=== PATIENT | male | born 1955 | race Caucasian/White ===

== ENCOUNTER 2016-08-17 08:00 | Outpatient (CLI) | payer MEDICARE | END 2016-08-17 08:01 | disposition home or self-care (01) | DX: I48.91 Unspecified atrial fibrillation (principal); Z79.01 Long term (current) use of anticoagulants ==

== ENCOUNTER 2016-09-14 10:57 | Outpatient (CLI) | payer MEDICARE | END 2016-09-14 10:58 | disposition home or self-care (01) | DX: I48.91 Unspecified atrial fibrillation (principal); Z79.01 Long term (current) use of anticoagulants ==

== ENCOUNTER 2016-10-26 09:21 | Outpatient (CLI) | payer MEDICARE | END 2016-10-26 09:22 | disposition home or self-care (01) | DX: I48.91 Unspecified atrial fibrillation (principal); Z79.01 Long term (current) use of anticoagulants ==

== ENCOUNTER 2016-11-15 13:01 | Outpatient (CLI) | payer MEDICARE ==
[2016-11-15] MEDS ORDERED: ALBUTEROL NEB 2.5 MG/3 ML INH ONE (13:13)
== END 2016-11-15 13:02 | disposition home or self-care (01) ==
DX: J44.9 Chronic obstructive pulmonary disease, unspecified (principal)
CPT/HCPCS: 94060; J7613

== ENCOUNTER 2016-11-30 09:53 | Outpatient (CLI) | payer MEDICARE | END 2016-11-30 23:59 | DX: I48.91 Unspecified atrial fibrillation (principal); Z79.01 Long term (current) use of anticoagulants ==

== ENCOUNTER 2017-01-01 08:05 | Outpatient (CLI) | payer MEDICARE ==
--- NOTE | 2017-01-01 16:54 | XRAY Report ---
CHEST PA AND LATERAL: 01/01/2017 CLINICAL HISTORY: Edema, shortness of breath. FINDINGS: Moderate degree of cardiomegaly is seen. Mediastinum is not widened. Pulmonary parenchym a demonstrates thickened fissures noted bilaterally. Associated moderate degree of interstitial pare nchymal disease is seen extending from each perihilar region. Findings are compatible with congestiv e heart failure. Bones demonstrate no significant abnormality. IMPRESSION: MODERATE DEGREE OF CARDIOMEGALY WITH CONGESTIVE HEART FAILURE. COMMENT: Dr. Bonilla informed patient's physician, Dr. Mane, of the above findings on 01/01/2017 a t 4:30 p.m. JOB #: [id number] EXT JOB #:[id number]
== END 2017-01-01 08:06 | disposition home or self-care (01) ==
LOC: DI 08:05
PROVIDERS: ATTEND Internal Medicine
DX: I50.9 Heart failure, unspecified (principal); I51.7 Cardiomegaly
CPT/HCPCS: 71020; 93306

== ENCOUNTER 2017-01-25 11:35 | Outpatient (CLI) | payer MEDICARE | END 2017-01-25 11:36 | disposition home or self-care (01) | LOC: LAB.N 11:35 | PROVIDERS: ATTEND Internal Medicine | DX: I48.91 Unspecified atrial fibrillation (principal) | CPT/HCPCS: 85610 ==

== ENCOUNTER 2017-03-08 10:06 | Outpatient (CLI) | payer MEDICARE | END 2017-03-08 10:07 | LOC: LAB.N 10:06 | PROVIDERS: ATTEND Internal Medicine | DX: I48.91 Unspecified atrial fibrillation (principal) | CPT/HCPCS: 85610 ==

== ENCOUNTER 2017-04-03 08:44 | Outpatient (CLI) | payer MEDICARE ==
--- NOTE | 2017-04-03 16:55 | CT Report ---
CT CHEST WITHOUT CONTRAST: 04/03/2017 CLINICAL INDICATION: Hypoxia. Axial CT images of the chest were obtained without contrast. In accordance with CT protocol optimization, one or more of the following dose reduction techniques w ere utilized for this exam: automated exposure control, adjustment of mA and/or KV based on patient size, or use of iterative reconstructive technique. No previous CT is available for comparison. The heart is mildly enlarged. No hilar or mediastinal lymphadenopathy is present. Multiple calcifie d hilar and mediastinal lymph nodes are present, compatible with changes of old granulomatous disease . The lungs demonstrate peripheral fibrosis. No focal consolidation, effusion, or pneumothorax is s een. No suspicious pulmonary nodule or mass lesion is appreciated. Osseous structures demonstrate d egenerative changes. Limited evaluation of upper abdominal structures demonstrates normal adrenal gl ands. IMPRESSION: PULMONARY FIBROSIS. NO EVIDENCE OF SUSPICIOUS PULMONARY NODULE OR FOCAL INFILTRATE. JOB #: [id number] EXT JOB #:[id number]
== END 2017-04-03 08:45 | disposition home or self-care (01) ==
LOC: DI 08:44
PROVIDERS: ATTEND Internal Medicine
DX: J84.10 Pulmonary fibrosis, unspecified (principal)
CPT/HCPCS: 71250

== ENCOUNTER 2017-04-12 09:25 | Outpatient (CLI) | payer MEDICARE | END 2017-04-12 09:26 | disposition home or self-care (01) | LOC: LAB.N 09:25 | PROVIDERS: ATTEND Internal Medicine | DX: I48.91 Unspecified atrial fibrillation (principal); Z79.01 Long term (current) use of anticoagulants | CPT/HCPCS: 85610 ==

== ENCOUNTER 2017-10-23 08:16 | Outpatient (CLI) | payer MEDICARE | END 2017-10-23 08:17 | disposition home or self-care (01) | LOC: DI 08:16 | PROVIDERS: ATTEND Internal Medicine Critical Care Medicine | DX: R06.09 Other forms of dyspnea (principal); I51.7 Cardiomegaly; I51.9 Heart disease, unspecified | CPT/HCPCS: 93306 ==

== ENCOUNTER 2017-12-20 08:00 | Outpatient (CLI) | payer MEDICARE | END 2017-12-20 08:01 | disposition home or self-care (01) | LOC: LAB.N 08:00 | PROVIDERS: ATTEND Internal Medicine | DX: I48.91 Unspecified atrial fibrillation (principal); Z79.01 Long term (current) use of anticoagulants | CPT/HCPCS: 85610 ==

== ENCOUNTER 2018-06-04 18:02 | Outpatient (CLI) | payer MEDICARE | END 2018-06-04 18:03 | disposition critical access hospital (66) | LOC: EMS 18:02 | PROVIDERS: ATTEND Surgery | DX: R56.9 Unspecified convulsions (principal) | CPT/HCPCS: A0425; A0429 ==

== ENCOUNTER 2018-06-04 18:27 | Inpatient (IN) | payer MEDICARE ==
--- NOTE | 2018-06-04 18:38 | ED Physician Documentation ---
PD HPI SEIZURE - Stated complaint Stated Complaint: SZ - History obtained from History obtained from: Patient, Family, EMS - History of Present Illness Timing - onset: Today (62-year-old gentleman who in January 2011 had a major stroke affecting the left side of his body/right side of his brain with persistent deficits on the left side of the body. He has had seizures before, but rarely the last was 2 years ago. Today he had 2 seizures that started with left upper extremity rhythmic contractions and regressing to tonic-clonic contractions and altered mental status. The first 1 is at 1:00 and the second was just prior to arrival. He has no complaints at this point and denies injuries. He has never been on antiepileptic medications.) Review of Systems Ten Systems: 10 systems reviewed and negative Constitutional: denies: Fever, Chills Cardiac: denies: Chest pain / pressure, Palpitations Respiratory: reports: Dyspnea, Cough (Chronic) GI: denies: Abdominal Pain, Nausea PD PAST MEDICAL HISTORY - Present Medications Home Medications: Ambulatory Orders Medication Instructions Recorded Confirmed Albuterol Sulf [Ventolin Hfa 06/04/18 Inhaler] Aspirin 06/04/18 Atenolol [Tenormin] 06/04/18 Furosemide [Lasix] 06/04/18 Lisinopril 06/04/18 Potassium Chloride 06/04/18 Umeclidinium Brm/Vilanterol Tr 06/04/18 [Anoro Ellipta 62.5-25 Mcg INH] Warfarin [Coumadin] 06/04/18 amLODIPine [Norvasc] 06/04/18 - Allergies Allergies/Adverse Reactions: Allergies Allergy/AdvReac Type Severity Reaction Status Date / Time No Known Drug Allergies Allergy Verified 06/04/18 18:38 PD ED PE NORMAL - Vitals Vital signs reviewed: Yes - General General: Alert and oriented X 3, No acute distress - HEENT HEENT: PERRL, EOMI - Neck Neck: Supple, no meningeal sign, No bony TTP - Cardiac Cardiac: RRR, No murmur - Respiratory Respiratory: No respiratory distress, Other (Rhonchorous) - Abdomen Abdomen: Normal bowel sounds, Soft, Non tender - Back Back: No CVA TTP, No spinal TTP - Extremities Extremities: Other (Left lower extremity is in a carbon fiber splint, he is able to briefly lift it off the bed. Left upper extremity is contractured he is able to move it but not much and with poor strength. Right side of the body is normal.) - Neuro Neuro: Alert and oriented X 3, Normal speech Results - Vitals Vitals: Vital Signs - 24 hr 06/04/18 06/04/18 06/04/18 18:27 19:10 19:50 Temperature 37.1 C 36.7 C Heart Rate 87 81 76 Respiratory 20 19 22 Rate Blood Pressure 83/46 L 128/105 H 109/70 O2 Saturation 90 L 92 95 Oxygen O2 Source Nasal cannula - EKG (time done) 1844 Rate: Rate (enter#) (86) Rhythm: Atrial fibrillation [place]: Normal Intervals: LBBB (LPFB) Computer interpretation: Agree with computer - Labs Labs: Laboratory Tests 06/04/18 06/04/18 06/04/18 18:42 18:42 18:42 WBC 11.3 H RBC 4.73 Hgb 15.3 Hct 44.4 MCV 93.7 MCH 32.3 H MCHC 34.5 RDW 15.1 H Plt Count 122 L MPV 9.2 Neut # (Auto) 9.9 H Lymph # (Auto) 0.6 L [place] # (Auto) 0.7 Eos # (Auto) 0.1 Baso # (Auto) 0.1 Absolute Nucleated RBC 0.01 Nucleated RBC % 0.1 PT 21.8 H INR 1.9 H Sodium 122 L Potassium 3.9 Chloride 86 L Carbon Dioxide 24 Anion Gap 12.0 BUN 15 Creatinine 0.7 Estimated GFR (MDRD) 114 Glucose 133 H Calcium 8.9 Total Bilirubin 1.4 H AST 37 ALT 24 Alkaline Phosphatase 59 Total Protein 8.0 Albumin 4.3 Globulin 3.7 Albumin/Globulin Ratio 1.2 Lipase 23 PD MEDICAL DECISION MAKING - ED course ED course: 62-year-old gentleman with history of right-sided stroke with left-sided deficits presents with tonic-clonic seizures today starting with focal seizures in the left upper extremity. He is noted to be hyponatremic and the notes that within the last couple of weeks his Lasix was increased from 20-40 mg by his shipping clerk which is likely causative for the hyponatremia as he does not otherwise have a history of hyponatremia per the . I will called [facility] neurology to get advice on antiepileptic drugs but I also spoke with Dr. Cordova for observation at 8:[address] Cristopher cook at [facility] who recommended 1 g of Keppra IV load and then 500 mg p.o. twice daily following that. Departure - Departure Disposition: ED Place in Observation Clinical Impression: Seizure, Hyponatremia, Subtherapeutic anticoagulation Condition: Serious
[2018-06-04 18:49] LABS: BASOPHILS # (AUTO) 0.1 10^3/uL (0.0-0.1); BASOPHILS % (AUTO) 0.5 %; EOSINOPHILS # (AUTO) 0.1 10^3/uL (0.0-0.7); EOSINOPHILS % (AUTO) 0.5 %; HGB - HEMOGLOBIN 15.3 g/dL (14.0-18.0); LYMPHOCYTES # (AUTO) 0.6 10^3/uL (1.5-3.5); LYMPHOCYTES % (AUTO) 5.1 %; MEAN CORPUSCULAR HEMOGLOBIN 32.3 pg (27.0-31.0); MEAN CORPUSCULAR HGB CONC 34.5 g/dL (32.0-36.0); MEAN CORPUSCULAR VOLUME 93.7 fL (80.0-94.0); MEAN PLATELET VOLUME 9.2 fL (7.4-11.4); MONOCYTES # (AUTO) 0.7 10^3/uL (0.0-1.0); MONOCYTES % (AUTO) 6.2 %; NEUTROPHILS # (AUTO) 9.9 10^3/uL (1.5-6.6); NEUTROPHILS % (AUTO) 87.7 %; PLT - PLATELET COUNT 122 10^3/uL (130-450); RED BLOOD COUNT 4.73 10^6/uL (4.70-6.10); RED CELL DISTRIBUTION WIDTH 15.1 % (12.0-15.0); WHITE BLOOD COUNT 11.3 x10^3/uL (4.8-10.8)
[2018-06-04 19:06] LABS: ALBUMIN 4.3 g/dL (3.2-5.5); ALBUMIN/GLOBULIN RATIO 1.2 (1.0-2.2); BILIRUBIN,TOTAL 1.4 mg/dL (0.2-1.0); CALCIUM 8.9 mg/dL (8.5-10.3); CREATININE 0.7 mg/dL (0.6-1.2)
[2018-06-04 19:18] LABS: INR 1.9 (0.8-1.2); PT - PROTHROMBIN TIME 21.8 secs (9.9-12.6)
--- NOTE | 2018-06-04 19:26 | CT Report ---
Reason: 2 szs Procedure Date: 06/04/2018 Accession Number: [id number] / [id number] Procedure: CT - Head W/O CPT Code: FULL RESULT: EXAM: CT HEAD EXAM DATE: 06/04/2018 07:07 PM. CLINICAL HISTORY: Seizures COMPARISON: None. TECHNIQUE: Multiaxial CT images were obtained from the foramen magnum to the vertex. Reformats: Sagittal and coronal. IV contrast: None. In accordance with CT protocol optimization, one or more of the following dose reduction techniques were utilized for this exam: automated exposure control, adjustment of mA and/or KV based on patient size, or use of iterative reconstructive technique. FINDINGS: Parenchyma: There is right temporoparietal encephalomalacia with ex-vacuo dilatation of the right lateral ventricle. A small focus of encephalomalacia is also seen in the right occipital lobe. No evidence of acute infarction or hemorrhage. Extraaxial Spaces: Normal for age. No subdural or epidural collections identified. Ventricles: Normal in size and position. Sinuses and Orbits: Imaged paranasal sinuses, orbits, and mastoids show no significant abnormality. Bones: No evidence of fracture or calvarial defect. Other: None. IMPRESSION: 1. No acute intracranial abnormality. 2. Right temporoparietal and occipital lobe post infarct encephalomalacia. RADIA
[2018-06-04] MEDS ORDERED: ONDANSETRON 4 MG/2 ML VIAL IVP STA (19:43)
[2018-06-04] MEDS ORDERED: SODIUM CHLORIDE 0.9% 1,000 ML IV ONE (19:43)
[2018-06-04] MEDS ORDERED: ACETAMINOPHEN 325 MG TABLET PO PRN (20:23)
[2018-06-04] MEDS ORDERED: SODIUM CHLORIDE FLUSH 0.9% 10 ML SYRINGE IVP PRN (20:23)
[2018-06-04] MEDS ORDERED: ONDANSETRON ODT 4 MG TABLET TL PRN (20:23)
[2018-06-04] MEDS ORDERED: ONDANSETRON 4 MG/2 ML VIAL IVP PRN (20:23)
[2018-06-04] MEDS ORDERED: levETIRAcetam INJ 1,000 MG in SODIUM CHLORIDE 0.9% 100ML 100 ML IV STA (20:31)
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
[2018-06-04] MEDS: SODIUM CHLORIDE 0.9% 1,000 ML IV SCH (21:45)
[2018-06-04] MEDS ORDERED: ALPRAZolam 0.25 MG TABLET PO PRN (22:15)
[2018-06-04] MEDS ORDERED: ALBUTEROL NEB 2.5 MG/3 ML INH PRN (22:32)
--- NOTE | 2018-06-04 22:52 | Ultrasound Report ---
Reason: new onset afib Procedure Date: 06/04/2018 Accession Number: [id number] / [id number] Procedure: US - Duplex Ext Veins Right CPT Code: FULL RESULT: EXAM: RIGHT LOWER EXTREMITY VENOUS ULTRASOUND EXAM DATE: 06/04/2018 10:18 PM. CLINICAL HISTORY: New onset atrial fibrillation. COMPARISON: None. TECHNIQUE: Real-time sonographic vascular imaging was performed by the fish fryer through the lower extremity utilizing both color-flow and Doppler spectral analysis. Multiple digital media representative static images were saved for review. FINDINGS: Common Femoral Vein (CFV): Normal. CFV-GSV Junction: Normal. Profunda Femoral Vein (PFV): Normal. Femoral Vein (FV) Prox: Normal. Femoral Vein (FV) Mid: Normal. Femoral Vein (FV) Dist: Normal. Popliteal Vein: Normal. Posterior Tibial Veins: Poorly seen due to motion. Peroneal Veins: Poorly seen due to motion. Other: None. IMPRESSION: No evidence for deep venous thrombosis. RADIA
[2018-06-05] MEDS: NYSTATIN POWDER 15 GM TOP SCH ×3 (00:56→20:50)
[2018-06-05] MEDS: SODIUM CHLORIDE FLUSH 0.9% 10 ML SYRINGE IVP SCH ×3 (00:57→16:23)
[2018-06-05] MEDS: SODIUM CHLORIDE 0.9% 1,000 ML IV SCH ×3 (03:42→18:56)
[2018-06-05 07:07] LABS: CALCIUM 8.2 mg/dL (8.5-10.3); CREATININE 0.7 mg/dL (0.6-1.2)
[2018-06-05] MEDS: POLYETHYLENE GLYCOL 3350 17 GM PACKET PO SCH (07:32)
[2018-06-05] MEDS: IPRATROPIUM/ALBUTEROL 3 ML NEB INH SCH ×4 (09:35→23:13)
[2018-06-05] MEDS: levETIRAcetam 500 MG/5 ML UDC PO SCH ×2 (09:58→20:33)
[2018-06-05] MEDS ORDERED: WARFARIN 5 MG TABLET PO SCH (12:00)
--- NOTE | 2018-06-05 13:48 | PROVIDER PROGRESS NOTE ---
Subjective - Prog Note Date Prog Note Date: 06/05/18 Prog Note Time: 13:46 - Subjective Pt reports feeling: Improved Subjective: patient seen with no acute event, unsteady gait per family member has not ambulated her with prosthetic leg, on baseline o2 tx for copd Current Medications - Current Medications Current Medications: Active Medications Acetaminophen (Tylenol) 650 mg PO Q4HR PRN PRN Reason: Pain 1 to 4 Albuterol () 2.5 mg INH RTQ4H PRN PRN Reason: Wheezing Albuterol () 2.5 mg INH RTQ6H [facility] Albuterol/Ipratropium (Duoneb) 3 ml INH RTQID [facility] Last Admin: 06/05/18 09:35 Dose: 3 ml Alprazolam (Xanax) 0.5 mg PO QPM PRN PRN Reason: Anxiety Alprazolam (Xanax) 0.5 mg PO QPM [facility] Aspirin (St Jason Aspirin) 81 mg PO DAILY [facility] Finasteride (Proscar) 5 mg PO DAILY [facility] Sodium Chloride (Normal Saline 0.9%) 1,000 mls @ 125 mls/hr IV .Q8H [facility] Last Admin: 06/05/18 11:12 Dose: 125 mls/hr Levetiracetam (Keppra) 500 mg PO BID [facility] Last Admin: 06/05/18 09:58 Dose: 500 mg Nystatin (Nystop) 1 applic TOP BID [facility] Last Admin: 06/05/18 10:39 Dose: 1 applic Ondansetron HCl (Zofran Inj) 4 mg IVP Q6HR PRN PRN Reason: Nausea / Vomiting Ondansetron HCl (Zofran Odt) 4 mg TL Q6HR PRN PRN Reason: Nausea / Vomiting Polyethylene Glycol (Miralax) 17 gm PO DAILY [facility] Last Admin: 06/05/18 07:32 Dose: Not Given Potassium Chloride (K-Dur) 20 meq PO DAILYWM [facility] Sodium Chloride (Normal Saline Flush 0.9%) 10 ml IVP PRN PRN PRN Reason: NEEDED PER PROVIDER ORDERS Sodium Chloride (Normal Saline Flush 0.9%) 10 ml IVP 0100,0900,1700 [facility] Last Admin: 06/05/18 07:32 Dose: Not Given Tamsulosin HCl (Flomax) 0.4 mg PO 1730 [facility] Warfarin Sodium (Coumadin) 7.5 mg PO Q48H [facility] Warfarin Sodium (Coumadin) 5 mg PO Q48H [facility] Aspirin 81 mg PO DAILY 06/04/18 Potassium Chloride 20 meq PO DAILY 06/04/18 Umeclidinium Brm/Vilanterol Tr [Anoro Ellipta 62.5-25 Mcg INH] 1 puffs INH DAILY 06/04/18 Warfarin [Coumadin] 5 mg PO Q48H 06/04/18 ALPRAZolam [Alprazolam] 0.5 mg PO QPM 06/05/18 Albuterol 2.5 mg INH Q6H 06/05/18 Amlodipine Besylate 10 mg PO DAILY 06/05/18 Atenolol 50 mg PO BID 06/05/18 Finasteride 5 mg PO DAILY 06/05/18 Furosemide 40 mg PO BID 06/05/18 Hydrocodone/Acetaminophen [Hydrocodone-Acetamin 5-325 mg] 1 tab PO TID PRN 06/05/18 Lisinopril 40 mg PO DAILY 06/05/18 Tamsulosin [Flomax] 0.4 mg PO 1730 06/05/18 Warfarin Sodium 7.5 mg PO Q48H 06/05/18 Objective - Vital Signs/Intake & Output Vital Signs: Vital Signs x48h Temp Pulse Pulse Resp BP Pulse Ox 06/05/18 09:37 63 16 06/05/18 08:00 36.8 C 77 20 102/68 91 L Intake & Output: Intake & Output 06/02/18 06/03/18 06/04/18 06/05/18 23:59 23:59 23:59 23:59 Intake Total 1000 2391.25 Output Total 550 1370 Balance 450 1021.25 - Objective General Appearance: positive: No acute distress, Other (chronically ill- appearing) Eyes Bilateral: positive: Normal inspection, PERRL, EOMI Neck: positive: Nml inspection, Thyroid nml, No JVD, Trachea midline, Thyromegaly Respiratory: positive: Chest non-tender, No respiratory distress, Rhonchi (expiratory to bases), Other Cardiovascular: positive: Regular rate & rhythm, No murmur, No gallop, Irregularly irregular Abdomen: positive: Non-tender, No organomegaly, Nml bowel sounds, No distention Skin: positive: Color nml, No rash, Warm Extremities: positive: Non-tender, Other (leg amp-BKA long stump with prosthesis) Neurologic/Psychiatric: positive: Oriented x3 Reflexes: Knee (R): 2+, Knee (L): 2+, Ankle (R): 2+, Ankle (L): 2+ Babinski Reflex: Right: Absent, Left: Absent - Lab Results Fish Bones: 06/04/18 18:42 06/05/18 06:44 Other Labs: Lab Results x24hrs 06/05/18 06/05/18 06/05/18 Range/Units 06:44 02:10 02:10 WBC (4.8-10.8) x10^3/uL RBC (4.70-6.10) 10^6/uL Hgb (14.0-18.0) g/dL Hct (42.0-52.0) % MCV (80.0-94.0) fL MCH (27.0-31.0) pg MCHC (32.0-36.0) g/dL RDW (12.0-15.0) % Plt Count (130-450) 10^3/uL MPV (7.4-11.4) fL Neut # (Auto) (1.5-6.6) 10^3/uL Lymph # (Auto) (1.5-3.5) 10^3/uL [place] # (Auto) (0.0-1.0) 10^3/uL Eos # (Auto) (0.0-0.7) 10^3/uL Baso # (Auto) (0.0-0.1) 10^3/uL Absolute Nucleated RBC x10^3/uL Nucleated RBC % /100WBC PT (9.9-12.6) secs INR (0.8-1.2) Sodium 127 L (135-145) mmol/L Potassium 4.2 (3.5-5.0) mmol/L Chloride 93 L (101-111) mmol/L Carbon Dioxide 27 (21-32) mmol/L Anion Gap 7.0 (6-13) BUN 11 (6-20) mg/dL Creatinine 0.7 (0.6-1.2) mg/dL Estimated GFR (MDRD) 114 (>89) Glucose 101 H (70-100) mg/dL Calcium 8.2 L (8.5-10.3) mg/dL Total Bilirubin (0.2-1.0) mg/dL AST (10-42) IU/L ALT (10-60) IU/L Alkaline Phosphatase (42-121) IU/L Troponin I < 0.04 (<0.49) ng/mL Total Protein (6.7-8.2) g/dL Albumin (3.2-5.5) g/dL Globulin (2.1-4.2) g/dL Albumin/Globulin Ratio (1.0-2.2) Lipase (22-51) U/L TSH 0.63 (0.34-5.60) uIU/mL 06/04/18 06/04/18 06/04/18 Range/Units 18:42 18:42 18:42 WBC (4.8-10.8) x10^3/uL RBC (4.70-6.10) 10^6/uL Hgb (14.0-18.0) g/dL Hct (42.0-52.0) % MCV (80.0-94.0) fL MCH (27.0-31.0) pg MCHC (32.0-36.0) g/dL RDW (12.0-15.0) % Plt Count (130-450) 10^3/uL MPV (7.4-11.4) fL Neut # (Auto) (1.5-6.6) 10^3/uL Lymph # (Auto) (1.5-3.5) 10^3/uL [place] # (Auto) (0.0-1.0) 10^3/uL Eos # (Auto) (0.0-0.7) 10^3/uL Baso # (Auto) (0.0-0.1) 10^3/uL Absolute Nucleated RBC x10^3/uL Nucleated RBC % /100WBC PT 21.8 H (9.9-12.6) secs INR 1.9 H (0.8-1.2) Sodium 122 L (135-145) mmol/L Potassium 3.9 (3.5-5.0) mmol/L Chloride 86 L (101-111) mmol/L Carbon Dioxide 24 (21-32) mmol/L Anion Gap 12.0 (6-13) BUN 15 (6-20) mg/dL Creatinine 0.7 (0.6-1.2) mg/dL Estimated GFR (MDRD) 114 (>89) Glucose 133 H (70-100) mg/dL Calcium 8.9 (8.5-10.3) mg/dL Total Bilirubin 1.4 H (0.2-1.0) mg/dL AST 37 (10-42) IU/L ALT 24 (10-60) IU/L Alkaline Phosphatase 59 (42-121) IU/L Troponin I < 0.04 (<0.49) ng/mL Total Protein 8.0 (6.7-8.2) g/dL Albumin 4.3 (3.2-5.5) g/dL Globulin 3.7 (2.1-4.2) g/dL Albumin/Globulin Ratio 1.2 (1.0-2.2) Lipase 23 (22-51) U/L TSH (0.34-5.60) uIU/mL 06/04/18 Range/Units 18:42 WBC 11.3 H (4.8-10.8) x10^3/uL RBC 4.73 (4.70-6.10) 10^6/uL Hgb 15.3 (14.0-18.0) g/dL Hct 44.4 (42.0-52.0) % MCV 93.7 (80.0-94.0) fL MCH 32.3 H (27.0-31.0) pg MCHC 34.5 (32.0-36.0) g/dL RDW 15.1 H (12.0-15.0) % Plt Count 122 L (130-450) 10^3/uL MPV 9.2 (7.4-11.4) fL Neut # (Auto) 9.9 H (1.5-6.6) 10^3/uL Lymph # (Auto) 0.6 L (1.5-3.5) 10^3/uL [place] # (Auto) 0.7 (0.0-1.0) 10^3/uL Eos # (Auto) 0.1 (0.0-0.7) 10^3/uL Baso # (Auto) 0.1 (0.0-0.1) 10^3/uL Absolute Nucleated RBC 0.01 x10^3/uL Nucleated RBC % 0.1 /100WBC PT (9.9-12.6) secs INR (0.8-1.2) Sodium (135-145) mmol/L Potassium (3.5-5.0) mmol/L Chloride (101-111) mmol/L Carbon Dioxide (21-32) mmol/L Anion Gap (6-13) BUN (6-20) mg/dL Creatinine (0.6-1.2) mg/dL Estimated GFR (MDRD) (>89) Glucose (70-100) mg/dL Calcium (8.5-10.3) mg/dL Total Bilirubin (0.2-1.0) mg/dL AST (10-42) IU/L ALT (10-60) IU/L Alkaline Phosphatase (42-121) IU/L Troponin I (<0.49) ng/mL Total Protein (6.7-8.2) g/dL Albumin (3.2-5.5) g/dL Globulin (2.1-4.2) g/dL Albumin/Globulin Ratio (1.0-2.2) Lipase (22-51) U/L TSH (0.34-5.60) uIU/mL - Diagnostic Imaging Diagnostic Imaging Results: positive: Final report reviewed ABX Reporting Has patient been on IV antibiotics over the past 48 hours?: No Assessment/Plan - Problem List (1) COPD (chronic obstructive pulmonary disease) Impression: Patient at baseline o2tx, would continue with nebs, start pulmicort, incentive christophe, CXR to follow. Incentive christophe to follow. Has o2 dep w/o evidence of exacerbation, chronic hypoxemic hypercapneic RF. . Qualifiers: COPD type: unspecified COPD Qualified Code(s): J44.9 - Chronic obstructive pulmonary disease, unspecified (2) Chronic respiratory failure with hypoxia and hypercapnia Impression: Would continue with optimization of medical mgmt. Donebs, pulmicort, consider singulair, christophe, pulm toilet. For the last couple he has not been using his mask because he is claustrophobic at night. Face has been getting better. Unable to take a Xanax which contributed to the sense of anxiety. Continue nighttime oxygen while here, Encouraged to use home trilogy mask at night at home. 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 ECHO ordered to eval for severe pulm htn and or L-sided HF. Had been receiving high dose lasix prior to admission. Reduce Lasix to 20 mg a day per Dr. Cordova. (4) Daisy infection of flexural skin Impression: would provide antifungal cream or nystatin powder (5) History of stroke with current residual effects Impression: Would have RN attempt ambulation with hx BKA/prosthesis, gait abnormality His current exam does not indicate he has had any new deficits. Or worsening deficits. But he seems to be in atrial fibrillation. Consider MRi if neuro deficits are present. He is severely claustrophobic and may not be able to do it. CT of the head is negative. (6) Hyponatremia Impression: Do not have a prior baseline, sec to lasix likely, Na slowly improving, check mag level. Lasix has been discontinued, Check serum osm, urine osm. (7) New onset atrial fibrillation Impression: Patient had been on coumadin prior to admission and is subtherapeuic with inr 1.9, CHADSVASC is 3 and 3.2% of yearly stroke risk. Resume coumadin at 5 mg po daily per pharmacy and daily inr/pt levels. Patient at risk for ICH in the setting of seizure disorder Echocardiogram was already done earlier this year. Documents right-sided heart failure, normal left ventricular ejection fraction. This was done in October. Will recheck echo. Check TSH (8) Seizure Impression: Patient with a hx seizures as well as CVA in the past. CT head shows post- infarct encephalomalacia to right temporo-parietal and occipital area likely the cause of seizure activity. Lowered seizure threshold is most likely secondary to a combination of factors. He has old scar tissue from previous stroke, hyponatremia, and lack of benzodiazepine for a few days (he usually takes it every night). He does not have any new residual deficits. Continue with Keppra 500 mg p.o. twice daily, received a 1000 mg loading dose given in the emergency room (9) Subtherapeutic anticoagulation Impression: Coumadin adjusted by pharmacy. Daily INR. (10) Anxiety Impression: Resume XANAX as benzo withdrawal may exacerbate and lower seizure threshold.
[2018-06-05 14:04] LABS: CHOL/HDL RATIO 2.7 (<5.0); CHOLESTEROL 159 mg/dL; HDL CHOLESTEROL 59 mg/dL; LDL CHOLESTEROL,CALCULATED 88 mg/dL; LDL/HDL RATIO 1.5 (<3.6); VLDL CHOLESTEROL 12 mg/dL
--- NOTE | 2018-06-05 14:48 | XRAY Report ---
Reason: hypoxemia eval for pulm edema or pneumonia Procedure Date: 06/05/2018 Accession Number: [id number] / [id number] Procedure: XR - Chest 2 View X-Ray CPT Code: 60276 FULL RESULT: EXAM: CHEST RADIOGRAPHY EXAM DATE: 06/05/2018 02:10 PM. CLINICAL HISTORY: Hypoxemia eval for pulm edema or pneumonia. COMPARISON: Chest 01/01/2017. TECHNIQUE: 2 views. FINDINGS: L the examination is limited by low lung volumes and patient positioning (the arm overlies the chest). There is cardiomegaly and pulmonary vascular congestion. There is hazy opacity of the lung bases which may be partially due to body habitus. No pneumothorax. There is a small amount of fluid in the minor fissure. IMPRESSION: Low lung volumes. Likely pattern of CHF. Correlate clinically. Attention to patient positioning and inspiration on follow-up. RADIA
[2018-06-05] MEDS ORDERED: TAMSULOSIN 0.4 MG CAPSULE PO SCH (17:30)
[2018-06-05] MEDS ORDERED: ALPRAZolam 0.25 MG TABLET PO SCH (21:00)
[2018-06-05] MEDS: ALBUTEROL NEB 2.5 MG/3 ML INH SCH (23:14)
[2018-06-06] MEDS: SODIUM CHLORIDE FLUSH 0.9% 10 ML SYRINGE IVP SCH ×2 (01:16→09:22)
[2018-06-06] MEDS: SODIUM CHLORIDE 0.9% 1,000 ML IV SCH (02:48)
[2018-06-06] MEDS: ALBUTEROL NEB 2.5 MG/3 ML INH SCH (02:55)
[2018-06-06] MEDS: IPRATROPIUM/ALBUTEROL 3 ML NEB INH SCH ×3 (07:14→15:27)
[2018-06-06] MEDS ORDERED: POTASSIUM CHLORIDE 20 MEQ TABLET PO SCH (08:00)
[2018-06-06 08:01] LABS: BASOPHILS # (AUTO) 0.1 10^3/uL (0.0-0.1); BASOPHILS % (AUTO) 1.5 %; EOSINOPHILS # (AUTO) 0.2 10^3/uL (0.0-0.7); EOSINOPHILS % (AUTO) 2.4 %; HGB - HEMOGLOBIN 14.2 g/dL (14.0-18.0); LYMPHOCYTES # (AUTO) 0.6 10^3/uL (1.5-3.5); MEAN CORPUSCULAR HEMOGLOBIN 33.1 pg (27.0-31.0); MEAN CORPUSCULAR HGB CONC 34.2 g/dL (32.0-36.0); MEAN CORPUSCULAR VOLUME 96.6 fL (80.0-94.0); MEAN PLATELET VOLUME 9.2 fL (7.4-11.4); MONOCYTES # (AUTO) 0.7 10^3/uL (0.0-1.0); MONOCYTES % (AUTO) 8.8 %; NEUTROPHILS # (AUTO) 6.3 10^3/uL (1.5-6.6); NEUTROPHILS % (AUTO) 79.3 %; PLT - PLATELET COUNT 88 10^3/uL (130-450); RED CELL DISTRIBUTION WIDTH 14.7 % (12.0-15.0); WHITE BLOOD COUNT 7.9 x10^3/uL (4.8-10.8)
[2018-06-06 08:11] LABS: ALBUMIN 3.7 g/dL (3.2-5.5); CALCIUM 8.5 mg/dL (8.5-10.3); CREATININE 0.6 mg/dL (0.6-1.2); PHOSPHORUS 2.5 mg/dL (2.5-4.6)
[2018-06-06] MEDS ORDERED: SODIUM CHLORIDE 1 GM TABLET PO SCH (09:00)
[2018-06-06] MEDS ORDERED: FINASTERIDE 5 MG TABLET PO SCH (09:00)
[2018-06-06] MEDS ORDERED: ASPIRIN CHEW 81 MG TABLET PO SCH (09:00)
[2018-06-06 09:08] VITALS: BP 121/80
[2018-06-06] MEDS: levETIRAcetam 500 MG/5 ML UDC PO SCH (09:14)
[2018-06-06] MEDS: POLYETHYLENE GLYCOL 3350 17 GM PACKET PO SCH (09:21)
[2018-06-06] MEDS: NYSTATIN POWDER 15 GM TOP SCH (09:22)
--- NOTE | 2018-06-06 10:41 | PROVIDER PROGRESS NOTE ---
Subjective - Prog Note Date Prog Note Date: 06/06/18 Prog Note Time: 10:39 - Subjective Pt reports feeling: Worse Subjective: Patient requiring up to 5L NC and sounds "wet" on lung exam per RN. SOB and JIMENEZ with ambulation. IVF's running at 125 ml/hr. Current Medications - Current Medications Current Medications: Active Medications Acetaminophen (Tylenol) 650 mg PO Q4HR PRN PRN Reason: Pain 1 to 4 Albuterol () 2.5 mg INH RTQ4H PRN PRN Reason: Wheezing Albuterol () 2.5 mg INH RTQ6H [facility] Last Admin: 06/06/18 02:55 Dose: Not Given Albuterol/Ipratropium (Duoneb) 3 ml INH RTQID [facility] Last Admin: 06/06/18 07:14 Dose: 3 ml Alprazolam (Xanax) 0.5 mg PO QPM [facility] Last Admin: 06/05/18 20:33 Dose: 0.5 mg Aspirin (St Jason Aspirin) 81 mg PO DAILY [facility] Last Admin: 06/06/18 09:21 Dose: 81 mg Budesonide (Pulmicort) 0.5 mg INH RTBID [facility] Finasteride (Proscar) 5 mg PO DAILY [facility] Last Admin: 06/06/18 09:20 Dose: 5 mg Furosemide (Lasix Inj 40 Mg Vial) 40 mg IVP ONCE [facility] Stop: 06/06/18 12:00 Furosemide (Lasix) 40 mg PO DAILY [facility] Levetiracetam (Keppra) 500 mg PO BID [facility] Last Admin: 06/06/18 09:14 Dose: 500 mg Nystatin (Nystop) 1 applic TOP BID [facility] Last Admin: 06/06/18 09:22 Dose: 1 applic Ondansetron HCl (Zofran Inj) 4 mg IVP Q6HR PRN PRN Reason: Nausea / Vomiting Ondansetron HCl (Zofran Odt) 4 mg TL Q6HR PRN PRN Reason: Nausea / Vomiting Polyethylene Glycol (Miralax) 17 gm PO DAILY [facility] Last Admin: 06/06/18 09:21 Dose: 17 gm Potassium Chloride (K-Dur) 20 meq PO DAILYWM [facility] Last Admin: 06/06/18 09:20 Dose: 20 meq Sodium Chloride (Normal Saline Flush 0.9%) 10 ml IVP PRN PRN PRN Reason: NEEDED PER PROVIDER ORDERS Sodium Chloride (Normal Saline Flush 0.9%) 10 ml IVP 0100,0900,1700 [facility] Last Admin: 06/06/18 09:22 Dose: Not Given Sodium Chloride (Salt Tab) 1 gm PO DAILY [facility] Last Admin: 06/06/18 09:20 Dose: 1 gm Tamsulosin HCl (Flomax) 0.4 mg PO 1730 [facility] Last Admin: 06/05/18 16:42 Dose: 0.4 mg Warfarin Sodium (Coumadin) 7.5 mg PO Q48H [facility] Last Admin: 06/05/18 14:20 Dose: 7.5 mg Warfarin Sodium (Coumadin) 5 mg PO Q48H [facility] Aspirin 81 mg PO DAILY 06/04/18 Potassium Chloride 20 meq PO DAILY 06/04/18 Umeclidinium Brm/Vilanterol Tr [Anoro Ellipta 62.5-25 Mcg INH] 1 puffs INH DAILY 06/04/18 Warfarin [Coumadin] 5 mg PO Q48H 06/04/18 ALPRAZolam [Alprazolam] 0.5 mg PO QPM 06/05/18 Albuterol 2.5 mg INH Q6H 06/05/18 Amlodipine Besylate 10 mg PO DAILY 06/05/18 Atenolol 50 mg PO BID 06/05/18 Finasteride 5 mg PO DAILY 06/05/18 Furosemide 40 mg PO BID 06/05/18 Hydrocodone/Acetaminophen [Hydrocodone-Acetamin 5-325 mg] 1 tab PO TID PRN 06/05/18 Lisinopril 40 mg PO DAILY 06/05/18 Tamsulosin [Flomax] 0.4 mg PO 1730 06/05/18 Warfarin Sodium 7.5 mg PO Q48H 06/05/18 Objective - Vital Signs/Intake & Output Reviewed Vital Signs: Yes Vital Signs: Vital Signs x48h Temp Pulse Pulse Resp BP Pulse Ox 06/06/18 09:05 36.3 C L 98 26 H 121/80 91 L 06/06/18 07:18 76 16 Intake & Output: Intake & Output 06/03/18 06/04/18 06/05/18 06/06/18 23:59 23:59 23:59 23:59 Intake Total 1000 4197.917 2148.333 Output Total 550 2070 750 Balance 450 2127.917 1398.333 - Objective General Appearance: positive: Mild distress, Anxious, Other (morbidly obese and chronically ill-appeared) Eyes Bilateral: positive: PERRL, EOMI, Conjunctivae nml ENT: positive: Pharynx nml Neck: positive: Nml inspection, Thyroid nml, No JVD, Trachea midline, Thyromegaly. negative: Carotid bruit Respiratory: positive: Chest non-tender, Rales, Rhonchi, Other (mild resp distress) Cardiovascular: positive: Regular rate & rhythm, No murmur, No gallop, Irregularly irregular. negative: Gallop/S3, Gallop/S4 Abdomen: positive: Non-tender, No organomegaly, Nml bowel sounds, No distention. negative: Tenderness Skin: positive: Color nml, No rash, Warm Extremities: positive: Pedal edema Neurologic/Psychiatric: positive: Oriented x3 - Lab Results Fish Bones: 06/06/18 07:48 06/06/18 07:48 Other Labs: Lab Results x24hrs 06/06/18 06/06/18 06/06/18 Range/Units 07:48 07:48 05:46 WBC 7.9 (4.8-10.8) x10^3/uL RBC 4.30 L (4.70-6.10) 10^6/uL Hgb 14.2 (14.0-18.0) g/dL Hct 41.6 L (42.0-52.0) % MCV 96.6 H (80.0-94.0) fL MCH 33.1 H (27.0-31.0) pg MCHC 34.2 (32.0-36.0) g/dL RDW 14.7 (12.0-15.0) % Plt Count 88 L (130-450) 10^3/uL MPV 9.2 (7.4-11.4) fL Neut # (Auto) 6.3 (1.5-6.6) 10^3/uL Lymph # (Auto) 0.6 L (1.5-3.5) 10^3/uL [place] # (Auto) 0.7 (0.0-1.0) 10^3/uL Eos # (Auto) 0.2 (0.0-0.7) 10^3/uL Baso # (Auto) 0.1 (0.0-0.1) 10^3/uL Absolute Nucleated RBC 0.00 x10^3/uL Nucleated RBC % 0.0 /100WBC PT 22.0 H (9.9-12.6) secs INR 2.0 H (0.8-1.2) Sodium 133 L (135-145) mmol/L Potassium 4.1 (3.5-5.0) mmol/L Chloride 97 L (101-111) mmol/L Carbon Dioxide 28 (21-32) mmol/L Anion Gap 8.0 (6-13) BUN 9 (6-20) mg/dL Creatinine 0.6 (0.6-1.2) mg/dL Estimated GFR (MDRD) 136 (>89) Glucose 111 H (70-100) mg/dL Calcium 8.5 (8.5-10.3) mg/dL Phosphorus 2.5 (2.5-4.6) mg/dL Magnesium (1.7-2.8) mg/dL B-Natriuretic Peptide (5-100) pg/mL Albumin 3.7 (3.2-5.5) g/dL Triglycerides ( - 149) mg/dL Cholesterol ( - 199) mg/dL LDL Cholesterol, Calc ( - 129) mg/dL VLDL Cholesterol mg/dL HDL Cholesterol (60 - ) mg/dL LDL/HDL Ratio (<3.6) Cholesterol/HDL Ratio (<5.0) 06/05/18 06/05/18 06/05/18 Range/Units 13:25 13:25 13:25 WBC (4.8-10.8) x10^3/uL RBC (4.70-6.10) 10^6/uL Hgb (14.0-18.0) g/dL Hct (42.0-52.0) % MCV (80.0-94.0) fL MCH (27.0-31.0) pg MCHC (32.0-36.0) g/dL RDW (12.0-15.0) % Plt Count (130-450) 10^3/uL MPV (7.4-11.4) fL Neut # (Auto) (1.5-6.6) 10^3/uL Lymph # (Auto) (1.5-3.5) 10^3/uL [place] # (Auto) (0.0-1.0) 10^3/uL Eos # (Auto) (0.0-0.7) 10^3/uL Baso # (Auto) (0.0-0.1) 10^3/uL Absolute Nucleated RBC x10^3/uL Nucleated RBC % /100WBC PT (9.9-12.6) secs INR (0.8-1.2) Sodium (135-145) mmol/L Potassium (3.5-5.0) mmol/L Chloride (101-111) mmol/L Carbon Dioxide (21-32) mmol/L Anion Gap (6-13) BUN (6-20) mg/dL Creatinine (0.6-1.2) mg/dL Estimated GFR (MDRD) (>89) Glucose (70-100) mg/dL Calcium (8.5-10.3) mg/dL Phosphorus (2.5-4.6) mg/dL Magnesium 2.0 (1.7-2.8) mg/dL B-Natriuretic Peptide 575 H (5-100) pg/mL Albumin (3.2-5.5) g/dL Triglycerides 58 ( - 149) mg/dL Cholesterol 159 ( - 199) mg/dL LDL Cholesterol, Calc 88 ( - 129) mg/dL VLDL Cholesterol 12 mg/dL HDL Cholesterol 59 L (60 - ) mg/dL LDL/HDL Ratio 1.5 (<3.6) Cholesterol/HDL Ratio 2.7 (<5.0) ABX Reporting Has patient been on IV antibiotics over the past 48 hours?: No Assessment/Plan - Problem List (1) Acute on chronic right-sided congestive heart failure Impression: CXR shows mild PVC. Will start IV lasix and then transition to PO. Echo shows sever right sided HF with decompensation clinically. IVF's to be discontinued, diurese. Would do daily weights, strict I/O's and fluid restriction to 1500 ml/24hr. Avoid over-diuresing as patient has co-existing seizure disorder and would precipitate further hyponatremia. (2) Acute on chronic respiratory failure with hypoxemia Impression: Acute decompensated cor-pulmonale likely causeing increased oxygenation with up to 5 liters nasal cannula now, will start lasix 40 mg IV x 1 then PO daily, was on BID dosing as outpatient however this was causing severe hyponatremia. (3) COPD (chronic obstructive pulmonary disease) Impression: Stable and not actively wheezing however will tx with pulmicort nebs INH BID for now. Qualifiers: COPD type: unspecified COPD Qualified Code(s): J44.9 - Chronic obstructive pulmonary disease, unspecified (4) Atrial fibrillation Impression: CHADSVAsc approx 4, cont, with coumadin with therapeutic INR now at 2.0. Would monitor electrolyte d/o to keep Mg>2.0 and K>4.0. Qualifiers: Atrial fibrillation type: unspecified Qualified Code(s): I48.91 - Uns pecified atrial fibrillation (5) Daisy infection of flexural skin Impression: Continue with Nystatin powder. (6) History of stroke with current residual effects Impression: Continue with coumadin for stroke ppx, encourage ambulation. Aspiration precautions. (7) Hyponatremia Impression: Improved to 133 on sodium chloride tablets, renal function is preserved, hypochloremia seen. Initiate fluid restriction to further improve levels. (8) Seizure Impression: Stable and no further seizures seen. Continue with Keppra 500 mg po bid. (9) Anxiety Impression: Continue with Xanax to avoid interruption as this would lower seizure threshold if a benzo withdrawal ensues. (10) Cor pulmonale (chronic) Impression: echo on 06/05 shows p-LVEF however severe RVE c/w cor-pulmonale, no evidence of pulm htn seen. Would avoid fluid overload, would need to be diuresed as this would contribute to patients worsening hypoxemia. (11) Thrombocytopenia Impression: Likely sec to Keppra as this could precipitate a pancytopenia. Not actively bleeding and on coumadin and ASA. Would hold ASA for now as he is therapeutic on coumadin. Would monitor trending.
[2018-06-06] MEDS ORDERED: FUROSEMIDE 40 MG/4 ML VIAL IVP SCH (11:00)
--- NOTE | 2018-06-06 11:54 | XRAY Report ---
Reason: SOB with rales, chronic hypoxemia Procedure Date: 06/06/2018 Accession Number: [id number] / [id number] Procedure: XR - Chest 2 View X-Ray CPT Code: 54067 FULL RESULT: EXAM: CHEST RADIOGRAPHY EXAM DATE: 06/06/2018 11:05 AM. CLINICAL HISTORY: SOB with rales, chronic hypoxemia. COMPARISON: CHEST 2 VIEW 06/05/2018 1:33 PM CHEST W/O 04/03/2017 9:02 AM. TECHNIQUE: 2 views. FINDINGS: Lungs/Pleura: Lung volumes mildly low. Mild diffuse coarsening of bilateral lung markings, as before. No cherie peripheral interstitial abnormality. No confluent consolidation. No pneumothorax or pleural effusion. Mediastinum: Mild cardiomegaly, as before. Mild aortic calcification. Other: Mild left convex thoracic spine curvature. IMPRESSION: 1. Mildly low lung volumes and mild diffuse coarsening of bilateral lung markings as before which may reflect atelectasis. There is no cherie interstitial edema. There is no confluent consolidation. 2. Mild cardiomegaly, as before. RADIA
[2018-06-06] MEDS ORDERED: WARFARIN 5 MG TABLET PO SCH (12:00)
--- NOTE | 2018-06-06 13:57 | Discharge Plan ---
Discharge Plan Disposition: Home, Self Care Condition: Good Prescriptions: Levetiracetam [Keppra] 500 mg PO BID #60 tablet Diet: Low Sodium (1500 ml/24 hr fluif restriction) Activity Restrictions: Activity as Tolerated Shower Restrictions: No Driving Restrictions: No Assistance Devices: Other (prosthesis) Instruction Topics: Levetiracetam tablets, Furosemide tablets, Potassium, Fluids Limiting Dc Additional Instructions or Follow Up instructions: Patient instructed to take Lasix 1/2 tab of 40 mg po Q noon. along with KCL supplementation. Resume home meds, fluid restriction to 1500ml/24hr of free water. Monitor daily weights and I/O's. Continue with home 02tx. No Smoking: If you smoke, Please STOP! Call for help. Follow-up with: Noman Mane MD [Primary Care Provider] - (in 1-2 weeks ) Cristopher Dang MD [Physician No Access] - 2 Weeks (2 weeks )
--- NOTE | 2018-06-06 14:03 | DISCHARGE SUMMARY ---
Discharge Summary Admit Date: 06/04/18 Discharge Date: 06/06/18 Discharging Provider: Dr. Orellana Primary Care Provider: Noman Mane MD Code Status: Attempt Resuscitation Condition at Discharge: Good Discharge Disposition: 01 Home, Self Care - DIAGNOSES Admission Diagnoses: 1) Acute on chronic right-sided congestive heart failure: Stable (2) Acute on chronic respiratory failure with hypoxemia (3) COPD (chronic obstructive pulmonary disease) o2 dependent (4) Atrial fibrillation (5) Daisy infection of flexural skin (6) History of stroke with current residual effects (7) Hyponatremia (8) Seizure (9) Anxiety (10) Cor pulmonale (chronic) Discharge Diagnoses with Status of Each Condition: (1) Acute on chronic right-sided congestive heart failure: Stable Impression: stable STAGE C per ACCF/AHA and NYHA stage 2/3 with p-EF. (2) Acute on chronic respiratory failure with hypoxemia Impression: Stable (3) COPD (chronic obstructive pulmonary disease) Impression: Stable (4) Atrial fibrillation controlled rate Impression: Stable (5) Daisy infection of flexural skin Impression: Stable (6) History of stroke with current residual effects Impression: Stable (7) Hyponatremia Impression: Stable, improved (8) Seizure Impression: Stable (9) Anxiety Impression: Stable (10) Cor pulmonale (chronic) Impression: Stable (11) Thrombocytopenia Impression: Worsening but stable - HPI History of Present Illness: This is a 62-year-old white male who has a history of stroke in the past with left body residual weakness, as well as presumed sleep apnea although he has declined a sleep study. The stroke was in 2010 and is had 2 seizures since then. It is unclear why seizure medication has not been given to him. He was recently seen for severe COPD and chronic respiratory failure with hypoxia by pulmonology consultation, Dr. Fiona Naranjo. She saw him on May 16 and felt that he was so limited that he was unable to perform pulmonary function studies, and his echo showed some signs of right heart failure. She increased his Lasix to 40 mg daily with potassium 20 mEq daily. She also prescribed a trilogy noninvasive ventilator for nighttime and, when necessary, daytime use. Hopefully she was going to treat the chronic hypoxic hypercarbic respiratory failure secondary to COPD. The noninvasive ventilator would help prevent life-threatening exacerbations and hospitalizations. BiPAP was insufficient for the severity of his condition.He has chronic daily dyspnea with minimal activity and mobility is with wheelchair. So far he has not been hospitalized for COPD exacerbation. Today he had 2 seizures that began in the left upper extremity. The seizures then progressed to tonic-clonic contractions and altered mental status. The first seizure was at 1:00 in the afternoon and the second seizure was right before he came into the emergency room. 2 things may have contributed to his seizures today. The first of which was lack of Xanax. He takes Xanax every night. Ran out of it about a week ago and the was unable to pick it up. It is ready at the pharmacy to be picked up today. But he has been without it for at least 5 or 6 days. The second thing is electrolyte imbalance. He was supposed to had a BMP a week after the increase in Lasix and addition of potassium. However, he just never got around her. It was scheduled for earlier this week but he just did not feel like going. As far as his knows, his sodium is been normal.She and he both deny fever, chills. He has had no sore throat. He denies any neck pain. He is not taking any new medications. There has been no change in GI status or status. There have been no falls. No blows to the head. He was evaluated by Dr. Gomez and was found to be in atrial fibrillation, temperature 37.1, blood pressure initially 83/46 and with normal saline going up to 128/105. He is 90% saturated on room air. White cell count is mildly elevated 11.3, hemoglobin is 15.3. Physical exam confirmed the residual left body weakness from the previous stroke. His labs showed him to have mild hyponatremia to 122. CT of the head was negative. Dr. Gomez spoke to neurology at [facility], and the patient is felt to need overnight observation. We need to start him on a seizure drug, bring up his sodium and hopefully have him discharged the following day. - HOSPITAL COURSE Hospital Course: Patient was manged medically for his chronic medical conditions to include acute/chronic hypoxemic/hypercapneic resp failure with coexistent core pulmonale. Had been on his baseline 02 dep at 2.5-3 L NC, was started on PO keppra 500 mg BID for his new onset seizures. There was questionable "new onset" A-fib that was not seen on prior echo outside hospital but was started on coumadin by PCP and resumed on this admission, initially subtx, but did achieve therapeutic level on discharge. Initially Na was at 122 and increased to 133 on discharge with IVF's and placing him on NaCl tabs as well as fluid restriction to 1500 ml/hr and Lasix 40mg IV x1, ASA and coumadin were continued with no signs of bleeding other than an acute drop in plts to 88K from 122k, likely sec to keppra? CXR showed mild PVC while being given fluids, BNP 575, patient was euvolemic and rate controlled and had mild rales on exam with resolution after given lasix. No seizures were seen throughout hospitalization. ECHO showed a p- EF 60-65% with severe right ventricular enlargement with no evidence of pulm htn, c/w Cor-pulmonale. Patient ambulated on his prosthesis and no further decompensation was noted. - ALLERGIES Allergies/Adverse Reactions: Allergies Allergy/AdvReac Type Severity Reaction Status Date / Time No Known Drug Allergies Allergy Verified 06/04/18 18:38 - MEDICATIONS Home Medications: Ambulatory Orders Medication Instructions Recorded Confirmed Aspirin 81 mg PO DAILY 06/04/18 06/05/18 Potassium Chloride 20 meq PO DAILY 06/04/18 06/05/18 Umeclidinium Brm/Vilanterol Tr 1 puffs INH DAILY 06/04/18 06/05/18 [Anoro Ellipta 62.5-25 Mcg INH] Warfarin [Coumadin] 5 mg PO Q48H 06/04/18 06/05/18 ALPRAZolam [Alprazolam] 0.5 mg PO QPM 06/05/18 06/05/18 Albuterol 2.5 mg INH Q6H 06/05/18 06/05/18 Amlodipine Besylate 10 mg PO DAILY 06/05/18 06/05/18 Atenolol 50 mg PO BID 06/05/18 06/05/18 Finasteride 5 mg PO DAILY 06/05/18 06/05/18 Hydrocodone/Acetaminophen 1 tab PO TID PRN 06/05/18 06/05/18 [Hydrocodone-Acetamin 5-325 mg] Lisinopril 40 mg PO DAILY 06/05/18 06/05/18 Tamsulosin [Flomax] 0.4 mg PO 1730 06/05/18 06/05/18 Warfarin Sodium 7.5 mg PO Q48H 06/05/18 06/05/18 Levetiracetam [Keppra] 500 mg PO BID #60 tablet 06/06/18 Home Medications Other | Comments: Patient had lasix at home and will be instructed to take 1/2 tab 40 mg Lasix Q noon then PRN for increased SOB with rales and edema. - PHYSICAL EXAM AT DISCHARGE General Appearance: positive: No acute distress Eyes Bilateral: positive: Normal inspection ENT: positive: ENT inspection nml Neck: positive: Nml inspection, Thyroid nml, No JVD, Trachea midline Respiratory: positive: Chest non-tender, No respiratory distress, Breath sounds nml, Rhonchi Cardiovascular: positive: Regular rate & rhythm, No murmur, Irregularly irregular. negative: JVD present, Gallop/S3, Gallop/S4 Abdomen: positive: Non-tender, No organomegaly, Nml bowel sounds, No distention Skin: positive: Color nml, No rash, Warm Extremities: positive: Non-tender, Pedal edema - LABS Result Diagrams: 06/06/18 07:48 06/06/18 07:48 - DIAGNOSTIC IMAGING Diagnostic Imaging Results: Final report reviewed (CXR showed mild PVC) - FOLLOW UP Follow Up: PCP Dr. Mane in 1-[address] Dang, Neurology in 1-2 weeks. - TIME SPENT Time Spent in Discharge (Minutes): 35
[2018-06-06] MEDS ORDERED: BUDESONIDE 0.5 MG/2 ML NEB INH SCH (19:00)
[2018-06-07] MEDS ORDERED: FUROSEMIDE 40 MG TABLET PO SCH (09:00)
== END 2018-06-06 15:54 | disposition home or self-care (01) | DRG 100 ==
LOC: EDUNIT# → ED 18:27 → OBS 20:23 → OBSVTOIN 06-06 10:25
PROVIDERS: ADMIT Specialist; ATTEND Family Medicine
DX: R56.9 Unspecified convulsions (principal); J96.21 Acute and chronic respiratory failure with hypoxia; J96.22 Acute and chronic respiratory failure with hypercapnia; I69.954 Hemiplegia and hemiparesis following unspecified cerebrovascular disease affecting left non-dominant side; E87.1 Hypo-osmolality and hyponatremia; I11.0 Hypertensive heart disease with heart failure; I50.813 Acute on chronic right heart failure; J96.12 Chronic respiratory failure with hypercapnia; J44.9 Chronic obstructive pulmonary disease, unspecified; I48.91 Unspecified atrial fibrillation; B37.2 Candidiasis of skin and nail; F41.9 Anxiety disorder, unspecified; I50.812 Chronic right heart failure; I27.81 Cor pulmonale (chronic); J96.11 Chronic respiratory failure with hypoxia; D69.59 Other secondary thrombocytopenia; T42.6X5A Adverse effect of other antiepileptic and sedative-hypnotic drugs, initial encounter; T42.4X6A Underdosing of benzodiazepines, initial encounter; T50.1X5A Adverse effect of loop [high-ceiling] diuretics, initial encounter; I69.398 Other sequelae of cerebral infarction; G93.89 Other specified disorders of brain; G47.30 Sleep apnea, unspecified; N40.1 Benign prostatic hyperplasia with lower urinary tract symptoms; N39.498 Other specified urinary incontinence; R35.0 Frequency of micturition; R39.15 Urgency of urination; I87.2 Venous insufficiency (chronic) (peripheral); Z99.3 Dependence on wheelchair; Z89.512 Acquired absence of left leg below knee; Z79.82 Long term (current) use of aspirin; Z79.51 Long term (current) use of inhaled steroids; Z79.01 Long term (current) use of anticoagulants; Z87.891 Personal history of nicotine dependence
CPT/HCPCS: 36415; 70450; 71046; 80048; 80053; 80061; 80069; 83690; 83721; 83735; 83880; 83930; 83935; 84443; 84484; 85025; 85610; 93005; 93306; 94640; 96361; 96365; 96374; 96375; 99284; 99285

== ENCOUNTER 2018-07-18 10:14 | Outpatient (CLI) | payer MEDICARE | END 2018-07-18 23:59 | disposition home or self-care (01) | LOC: LAB.N 10:14 | PROVIDERS: ATTEND Internal Medicine | DX: I48.91 Unspecified atrial fibrillation (principal); Z79.01 Long term (current) use of anticoagulants | CPT/HCPCS: 85610 ==

== ENCOUNTER 2018-08-22 11:50 | Outpatient (CLI) | payer MEDICARE | END 2018-08-22 23:59 | disposition home or self-care (01) | LOC: LAB.N 11:50 | PROVIDERS: ATTEND Internal Medicine | DX: I48.91 Unspecified atrial fibrillation (principal); Z79.01 Long term (current) use of anticoagulants | CPT/HCPCS: 85610 ==

== ENCOUNTER 2019-07-05 07:17 | Outpatient (CLI) | payer MEDICARE | END 2019-07-05 07:18 | disposition critical access hospital (66) | LOC: EMS 07:17 | PROVIDERS: ATTEND Surgery | DX: R06.00 Dyspnea, unspecified (principal); R41.82 Altered mental status, unspecified; W19.XXXA Unspecified fall, initial encounter; Y92.000 Kitchen of unspecified non-institutional (private) residence as the place of occurrence of the external cause | CPT/HCPCS: A0425; A0427 ==

== ENCOUNTER 2019-07-05 07:28 | Emergency (ER) | payer MEDICARE ==
[2019-07-05] MEDS: FUROSEMIDE 100 MG/10 ML VIAL IVP STA ×2 (07:49→08:18)
[2019-07-05] MEDS ORDERED: MIDAZOLAM 2 MG/2 ML VIAL ONE (07:54)
[2019-07-05 07:55] LABS: BASOPHILS % (AUTO) 0.4 %; EOSINOPHILS % (AUTO) 0.1 %; HGB - HEMOGLOBIN 14.5 g/dL (14.0-18.0); LYMPHOCYTES # (AUTO) 0.5 10^3/uL (1.5-3.5); MEAN CORPUSCULAR HEMOGLOBIN 33.2 pg (27.0-31.0); MEAN CORPUSCULAR VOLUME 110.5 fL (80.0-94.0); MEAN PLATELET VOLUME 12.7 fL (7.4-11.4); MONOCYTES # (AUTO) 0.7 10^3/uL (0.0-1.0); MONOCYTES % (AUTO) 9.5 %; NEUTROPHILS # (AUTO) 6.3 10^3/uL (1.5-6.6); NEUTROPHILS % (AUTO) 83.5 %; PLT - PLATELET COUNT 105 10^3/uL (130-450); RED BLOOD COUNT 4.37 10^6/uL (4.70-6.10); RED CELL DISTRIBUTION WIDTH 16.7 % (12.0-15.0); WHITE BLOOD COUNT 7.6 x10^3/uL (4.8-10.8)
[2019-07-05] MEDS ORDERED: KETAMINE 500 MG/10 ML VIAL IVP STA (07:58)
[2019-07-05] MEDS ORDERED: KETAMINE 500 MG/10 ML VIAL ONE (07:59)
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
[2019-07-05] MEDS ORDERED: PROPOFOL 1000 MG/100 ML 100 ML IV STA (08:10)
[2019-07-05] MEDS ORDERED: ALBUTEROL NEB 2.5 MG/3 ML INH STA (08:10)
[2019-07-05] MEDS ORDERED: MIDAZOLAM 2 MG/2 ML VIAL IVP STA (08:10)
[2019-07-05 08:14] LABS: ALBUMIN 3.9 g/dL (3.2-5.5); ALBUMIN/GLOBULIN RATIO 1.1 (1.0-2.2); BILIRUBIN,TOTAL 1.5 mg/dL (0.2-1.0); CALCIUM 8.9 mg/dL (8.5-10.3); CREATININE 1.3 mg/dL (0.6-1.2); PT - PROTHROMBIN TIME 69.9 secs (9.9-12.6); TOTAL PROTEIN 7.4 g/dL (6.7-8.2)
[2019-07-05] MEDS ORDERED: METHYLPREDNISOLONE SUCCINATE IV STA (08:14)
[2019-07-05] MEDS ORDERED: ALBUTEROL NEB 2.5 MG/3 ML INH ONE (08:14)
[2019-07-05] MEDS ORDERED: SODIUM CHLORIDE 0.9% IV STA (08:14)
--- NOTE | 2019-07-05 08:20 | XRAY Report ---
Reason: soa Procedure Date: 07/05/2019 Accession Number: [id number] / [id number] Procedure: XR - Chest 1 View X-Ray CPT Code: 86865 Final Report FULL RESULT: EXAM: CHEST RADIOGRAPHY EXAM DATE: 07/05/2019 07:56 AM. CLINICAL HISTORY: Soa. COMPARISON: CHEST 2 VIEW 06/06/2018 10:49 AM. TECHNIQUE: 1 view. FINDINGS: Lungs/Pleura: Hypoinflation redemonstrated. Increased vascular and interstitial opacities with mild relative confluence within the right lower lung. No gross pleural effusion. No pneumothorax. Mediastinum: Stable mild cardiac enlargement. Other: None. IMPRESSION: 1. Hypoinflation redemonstrated. 2. Increased vascular and interstitial infiltrates or edema with asymmetric increased right basilar opacity. 2. Stable mild cardiac enlargement. RADIA
[2019-07-05 08:22] LABS: INR 6.8 (0.8-1.2)
[2019-07-05 08:29] LABS: PLATELET ESTIMATE, MANUAL DECREASED (<130,000) (NORMAL); PLATELET MORPHOLOGY NORMAL APPEARANCE (NORMAL)
[2019-07-05] MEDS ORDERED: IPRATROPIUM/ALBUTEROL 3 ML NEB INH STA (08:29)
[2019-07-05] MEDS ORDERED: cefTRIAXone 1 GM in SODIUM CHLORIDE 0.9% MINIBAG 100 ML IV STA (08:32)
[2019-07-05] MEDS ORDERED: AZITHROMYCIN INJ 500 MG in SODIUM CHLORIDE 0.9% 250 ML IV STA (08:32)
[2019-07-05 08:44] LABS: GLUCOSE, URINE (UA) NEGATIVE (NEGATIVE); KETONES,URINE (UA) TRACE mg/dL (NEGATIVE); LEUKOCYTE ESTERASE, URINE NEGATIVE (NEGATIVE); NITRITE,URINE NEGATIVE (NEGATIVE); OCCULT BLOOD,URINE NEGATIVE (NEGATIVE); PROTEIN,URINE 30 mg/dL (NEGATIVE); UROBILINOGEN,URINE 2 E.U./dL (NORMAL)
--- NOTE | 2019-07-05 08:44 | XRAY Report ---
Reason: chest pain Procedure Date: 07/05/2019 Accession Number: [id number] / [id number] Procedure: XR - Chest 1 View X-Ray CPT Code: 20517 Final Report FULL RESULT: EXAM: CHEST RADIOGRAPHY EXAM DATE: 07/05/2019 08:18 AM. CLINICAL HISTORY: Chest pain. COMPARISON: CHEST 1 VIEW 07/05/2019 7:38 AM. CHEST 2 VIEW 06/06/2018 10:49 AM. TECHNIQUE: 1 view. FINDINGS: Lungs/Pleura: The lung volumes remain low. There are persistent interstitial opacities. There are small bilateral pleural effusions. Mediastinum: Cardiomegaly is present. There is atherosclerotic calcification in the aortic arch. Other: Endotracheal tube tip approximately 2.2 cm superior to the erica. IMPRESSION: 1. Endotracheal tube in expected location. 2. Cardiomegaly with findings of fluid overload. RADIA
[2019-07-05 08:47] LABS: BILIRUBIN,URINE NEGATIVE (NEGATIVE); CLARITY,URINE CLEAR (CLEAR); ICTOTEST,URINE NEGATIVE
[2019-07-05] MEDS ORDERED: methylPREDNISolone SUCCINATE 125 MG/2 ML VIAL ONE (08:51)
[2019-07-05 08:52] LABS: BACTERIA,URINE Few /HPF (None Seen); CASTS, URINE 11-25 Hyaline Casts /LPF; RBC,URINE 0-5 /HPF (0-5); SQUAMOUS EPITHELIAL CELL,UR RARE Squamous (<= Few)
[2019-07-05 09:40] VITALS: BP 109/84
== END 2019-07-05 09:06 | disposition short-term general hospital (02) ==
LOC: ED 07:28
DX: J18.9 Pneumonia, unspecified organism (principal); J96.21 Acute and chronic respiratory failure with hypoxia; J44.0 Chronic obstructive pulmonary disease with (acute) lower respiratory infection; E87.70 Fluid overload, unspecified; I10 Essential (primary) hypertension; Z99.81 Dependence on supplemental oxygen
CPT/HCPCS: 31500; 36415; 71045; 80053; 81001; 83605; 83690; 83880; 84484; 85025; 85610; 87040; 93005; 94640; 96374; 96375; 99285; J1940; 81003; 87086

== ENCOUNTER 2020-02-09 09:50 | Outpatient (CLI) | payer MEDICARE | END 2020-02-09 09:51 | disposition critical access hospital (66) | LOC: EMS 09:50 | PROVIDERS: ATTEND Surgery | DX: R06.02 Shortness of breath (principal); R05 Cough; R09.89 Other specified symptoms and signs involving the circulatory and respiratory systems; R53.1 Weakness | CPT/HCPCS: A0425; A0427 ==

== ENCOUNTER 2020-02-09 10:05 | Emergency (ER) | payer MEDICARE ==
--- NOTE | 2020-02-09 10:56 | XRAY Report ---
PROCEDURE: Chest 1 View X-Ray INDICATIONS: SOB, cough TECHNIQUE: One view of the chest was acquired. COMPARISON: CXR 07/05/2019, 06/06/2018. CT chest 04/03/2017. FINDINGS: Surgical changes and devices: None. Lungs and pleura: No pleural effusions or pneumothorax. Overall similar bilateral patchy airspace op acity. This may be slightly more prominent in the right upper lobe near the apex. Low lung volumes. Mediastinum: Mediastinal contours appear normal. Calcified mediastinal nodes seen on remote CT are n ot well appreciated. Heart size is normal. Bones and chest wall: Lucency involving the medial left clavicle appears similar to the 2019. Likely due to superimposed costochondral junction calcification and/or sequelae of remote fracture. Overlyin g soft tissues appear unremarkable. IMPRESSION: Apparent low lung volumes. Diffuse patchy airspace opacities bilaterally which overall appears simila r to the prior exams that may be slightly increased in the right upper lobe. Exam is limited due to p ositioning. This opacity may be due to underlying fibrosis or interstitial lung disease. -High-resolution chest CT would be helpful for further characterization. Reviewed by: Chaka Billings MD on 02/09/2020 10:54 AM PDT Approved by: Chaka Billings MD on 02/09/2020 10:54 AM PDT Station ID: [id number]
[2020-02-09 11:06] LABS: BASOPHILS # (AUTO) 0.1 10^3/uL (0.0-0.1); BASOPHILS % (AUTO) 1.1 %; EOSINOPHILS # (AUTO) 0.1 10^3/uL (0.0-0.7); EOSINOPHILS % (AUTO) 2.1 %; HGB - HEMOGLOBIN 14.4 g/dL (14.0-18.0); LYMPHOCYTES # (AUTO) 0.7 10^3/uL (1.5-3.5); LYMPHOCYTES % (AUTO) 11.1 %; MEAN CORPUSCULAR HEMOGLOBIN 34.1 pg (27.0-31.0); MEAN CORPUSCULAR HGB CONC 30.4 g/dL (32.0-36.0); MEAN CORPUSCULAR VOLUME 112.3 fL (80.0-94.0); MEAN PLATELET VOLUME 12.6 fL (7.4-11.4); MONOCYTES # (AUTO) 0.6 10^3/uL (0.0-1.0); MONOCYTES % (AUTO) 9.7 %; NEUTROPHILS # (AUTO) 4.6 10^3/uL (1.5-6.6); NEUTROPHILS % (AUTO) 75.7 %; PLT - PLATELET COUNT 92 10^3/uL (130-450); RED BLOOD COUNT 4.22 10^6/uL (4.70-6.10); RED CELL DISTRIBUTION WIDTH 17.1 % (12.0-15.0); WHITE BLOOD COUNT 6.1 x10^3/uL (4.8-10.8)
[2020-02-09 11:08] LABS: ABG BASE EXCESS 0.2 mmol/L (-2.0-3.0); ABG HCO3 29.7 mmol/L (22.0-26.0); ABG OXYGEN SATURATION 91 % (94-98); ABG PH 7.24 (7.35-7.45); ABG PO2 70 mmHg (80-100); ABG TCO2 31.9 MMOL/L (21.0-29.0)
[2020-02-09 11:10] LABS: ABG PCO2 70 mmHg (34-45)
[2020-02-09 11:26] LABS: INR 4.2 (0.8-1.2)
[2020-02-09 11:26] LABS: ALBUMIN 3.5 g/dL (3.2-5.5); BILIRUBIN,TOTAL 1.9 mg/dL (0.2-1.0); CALCIUM 8.6 mg/dL (8.5-10.3); CREATININE 1.3 mg/dL (0.6-1.2); TOTAL PROTEIN 7.1 g/dL (6.7-8.2)
[2020-02-09] MEDS ORDERED: BUFFERED LIDOCAINE 10 ML SYRINGE IU ONE (11:36)
[2020-02-09] MEDS ORDERED: IOVERSOL 320 100 ML VIAL IVP ONE (11:54)
--- NOTE | 2020-02-09 12:54 | CT Report ---
PROCEDURE: ANGIO CHEST W/WO INDICATIONS: hypoxia, altered LOC CONTRAST: IV CONTRAST: Optiray 320 ml: 80 PO CONTRAST: *NO PO CONTRAST TECHNIQUE: After the administration of intravenous contrast, 2 mm thick sections acquired from the pulmonary api alayna to the posterior costophrenic angles. 3-dimensional maximum intensity projection (MIP) coronal a nd sagittal reformats were then acquired through the thorax. For radiation dose reduction, the follow ing was used: automated exposure control, adjustment of mA and/or kV according to patient size. COMPARISON: Chest radiograph dated same day. FINDINGS: Image quality: Excellent. Pulmonary arteries: No central pulmonary artery filling defect to suggest pulmonary embolism however the segmental pulmonary arteries are not well visualized due to poor contrast opacification. Lungs and pleura: Low lung volumes and scattered atelectasis. Patchy right basilar consolidation and ill-defined left lower lobe opacities. There are bilateral mild scattered groundglass opacities. Ther e are some areas of interlobular septal and fissural thickening in both lung bases No pleural effusions or pneumothorax. Central and peripheral airways are patent. Mediastinum: Heart size is enlarged, without pericardial effusion. There is reflux of IV contrast in to the IVC and hepatic veins in keeping with decreased caliber. Coronary artery calcifications are no dong. No mediastinal or hilar adenopathy. Thoracic aorta is normal in caliber and enhancement. Eso phagus is normal in caliber, without hiatal hernia. Bones and chest wall: No suspicious bony lesions. Chronic appearing left rib deformities. The thyroi d is normal. No axillary or supraclavicular adenopathy. Presumed granulomatous calcifications seen in the spleen. Numerous vascular calcifications IMPRESSION: No definite central pulmonary embolism however evaluation of the segmental pulmonary arteries is subo ptimal due to heterogeneous contrast opacification Ill-defined patchy bilateral basilar consolidative opacities, right greater than left. There are also numerous bilateral groundglass opacities. This could represent pulmonary edema in the setting of jian kground atelectasis. Technically, in this setting, cannot exclude early bronchopneumonia, or atypical /viral pneumonia. Therefore please correlate clinically. If there is persistent clinical diagnostic u ncertainty, recommend short interval follow-up chest radiographs after treatment for further assessme nt. Cardiomegaly, with CT evidence of decreased cardiac output. Low lung volumes with scattered atelectasis. Reviewed by: Guilherme Guerrero MD on 02/09/2020 12:53 PM PDT Approved by: Guilherme Guerrero MD on 02/09/2020 12:53 PM PDT Station ID: [id number]
[2020-02-09] MEDS ORDERED: cefTRIAXone 2 GM in SODIUM CHLORIDE 0.9% MINIBAG 100 ML IV STA (13:17)
[2020-02-09] MEDS ORDERED: AZITHROMYCIN INJ 500 MG in SODIUM CHLORIDE 0.9% 250 ML IV STA (13:17)
--- NOTE | 2020-02-09 13:21 | ED Physician Documentation ---
History of Present Illness - Stated complaint Stated Complaint: CHF/POSS COVID+ - Chief complaint Chief Complaint: Resp - History obtained from History obtained from: EMS - Additonal information Additional information: Patient is brought to the emergency department via EMS after being found to be increasingly short of breath over the last couple of weeks by family at home. Patient has a history of CHF and COPD and has normally required 2-1/2 to 3 L of oxygen per nasal cannula [id number]. However, family apparently has been increasing patient's oxygen to the point that the patient's been on 8 L for the last few days. According to medics this is because the family found the patient's oxygen saturations to be lower than usual. Medics state that when they arrived, the patient had an O2 sat of 71% on room air when they transferred him over to their oxygen source. Family reported the patient has had altered mental status today. Patient is not able to offer any information himself, due to this. Medics report that family reported patient has had a productive cough. They do not know if he has been exposed to anybody with COVID or not. Review of Systems Unable to obtain: Unresponsive PD PAST MEDICAL HISTORY - Past Medical History Past Medical History: Yes Cardiovascular: Congestive heart failure, Hypertension, High cholesterol Respiratory: COPD, Emphysema, Sleep apnea Neuro: CVA, Seizure disorder Endocrine/Autoimmune: None GI: None : Benign prostate hypertrophy HEENT: None Psych: Anxiety Musculoskeletal: None Derm: None - Past Surgical History Past Surgical History: Yes Ortho: Amputation HEENT: Myringotomy (tubes) - Present Medications Home Medications: Ambulatory Orders Medication Instructions Recorded Confirmed Aspirin 81 mg PO DAILY 06/04/18 02/09/20 Potassium Chloride 20 meq PO DAILY 06/04/18 02/09/20 Umeclidinium Brm/Vilanterol Tr 1 puffs INH DAILY 06/04/18 02/09/20 [Anoro Ellipta 62.5-25 Mcg INH] Warfarin [Coumadin] 5 mg PO Q48H 06/04/18 06/05/18 ALPRAZolam [Alprazolam] 0.5 mg PO QPM 06/05/18 02/09/20 Albuterol 2.5 mg INH Q6H 06/05/18 02/09/20 Amlodipine Besylate 10 mg PO DAILY 06/05/18 06/05/18 Finasteride 5 mg PO DAILY 06/05/18 02/09/20 Hydrocodone/Acetaminophen 1 tab PO TID PRN 06/05/18 06/05/18 [Hydrocodone-Acetamin 5-325 mg] Tamsulosin [Flomax] 0.4 mg PO 1730 06/05/18 02/09/20 Warfarin Sodium 7.5 mg PO Q48H 06/05/18 06/05/18 Atorvastatin Calcium 40 mg PO DAILY PM 02/09/20 02/09/20 Furosemide 40 mg ORAL DAILY 02/09/20 02/09/20 Ipratropium/Albuterol [Duoneb] 3 ml INH Q6H 02/09/20 02/09/20 Levetiracetam [Keppra] 750 mg PO BID 02/09/20 02/09/20 Metoprolol Succinate 50 mg PO BID 02/09/20 02/09/20 lisinopriL [Zestril] 5 mg ORAL DAILY 02/09/20 02/09/20 - Allergies Allergies/Adverse Reactions: Allergies Allergy/AdvReac Type Severity Reaction Status Date / Time No Known Drug Allergies Allergy Verified 02/09/20 10:09 - Social History Does the pt smoke?: Yes Smoking Status: Current every day smoker Does the pt drink ETOH?: Yes - Immunizations Immunizations are current?: Yes - POLST Patient has POLST: No POLST Status: Full Code (He and his have not discussed advanced directives in the past. Right now he states that he does want to be put on a ventilator if necessary and be resuscitated from a cardiac perspective.) PD ED PE NORMAL - Vitals Vital signs reviewed: Yes - General General: Other (Patient is disheveled and obtunded.) - HEENT HEENT: Atraumatic, PERRL, EOMI, Moist mucous membranes - Neck Neck: Supple, no meningeal sign - Cardiac Cardiac: RRR, No murmur, Strong equal pulses - Respiratory Respiratory: Other (Patient has poor air movement bilaterally.) - Abdomen Abdomen: Soft, Non tender, Non distended - Derm Derm: Normal color, Warm and dry, No rash - Extremities Extremities: No deformity, Other (Moderate lower extremity edema with 2+ pitting.) - Neuro Neuro: Other (Patient is obtunded. He moves all 4 extremities to noxious stimuli but does not open eyes to voice.) - Psych Psych: Other (Obtunded) Results - Vitals Vitals: Oxygen O2 Source BIPAP - EKG (time done) 1019 Rate: Rate (enter#) (61) Rhythm: Atrial fibrillation [place]: Normal Intervals: Other (borderline IVCD) QRS: No: Poor R wave progression, Low voltage Ischemia: Normal ST segments, T wave inversion Compare to prior EKG: Old EKG unavailable - Labs Labs: Microbiology 02/09/20 11:12 Blood Culture - Final Blood NO GROWTH AFTER 5 DAYS 02/09/20 10:53 Blood Culture - Final Blood NO GROWTH AFTER 5 DAYS Laboratory Tests 02/09/20 02/09/20 02/09/20 10:18 10:35 10:53 WBC 6.1 RBC 4.22 L Hgb 14.4 Hct 47.4 MCV 112.3 H MCH 34.1 H MCHC 30.4 L RDW 17.1 H Plt Count 92 L MPV 12.6 H Neut # (Auto) 4.6 Lymph # (Auto) 0.7 L Mccone # (Auto) 0.6 Eos # (Auto) 0.1 Baso # (Auto) 0.1 Absolute Nucleated RBC 0.03 Nucleated RBC % 0.5 PT INR Bld Gas Analysis Time Sample Site ABG pH ABG pCO2 ABG pO2 ABG HCO3 ABG Total CO2 ABG O2 Saturation ABG Base Excess Lars Test Respiration Rate O2 Delivery Device Vent Mode FiO2 EPAP IPAP Sodium 141 Potassium 5.0 Chloride 103 Carbon Dioxide 30 Anion Gap 8.0 BUN 48 H Creatinine 1.3 H Estimated GFR (MDRD) 55 L Glucose 115 H Lactic Acid Calcium 8.6 Total Bilirubin 1.9 H AST 31 ALT 22 Alkaline Phosphatase 89 Troponin I High Sens B-Natriuretic Peptide Total Protein 7.1 Albumin 3.5 Globulin 3.6 Albumin/Globulin Ratio 1.0 Lipase 32 Coronavirus (PCR) NEGATIVE 02/09/20 02/09/20 02/09/20 10:53 10:53 11:00 WBC RBC Hgb Hct MCV MCH MCHC RDW Plt Count MPV Neut # (Auto) Lymph # (Auto) Mccone # (Auto) Eos # (Auto) Baso # (Auto) Absolute Nucleated RBC Nucleated RBC % PT INR Bld Gas Analysis Time 11:00 Sample Site RIGHT BRACHIAL ABG pH 7.24 L ABG pCO2 70 H* ABG pO2 70 L ABG HCO3 29.7 H ABG Total CO2 31.9 H ABG O2 Saturation 91 L ABG Base Excess 0.2 Lars Test NOT APPLICABLE Respiration Rate 20 O2 Delivery Device BiPAP Vent Mode SYNCHRONOUS/TIMES FiO2 60.00 EPAP 7 IPAP 14 Sodium Potassium Chloride Carbon Dioxide Anion Gap BUN Creatinine Estimated GFR (MDRD) Glucose Lactic Acid 1.6 Calcium Total Bilirubin AST ALT Alkaline Phosphatase Troponin I High Sens 184.5 H* B-Natriuretic Peptide Total Protein Albumin Globulin Albumin/Globulin Ratio Lipase Coronavirus (PCR) 02/09/20 02/09/20 11:12 11:12 WBC RBC Hgb Hct MCV MCH MCHC RDW Plt Count MPV Neut # (Auto) Lymph # (Auto) Mccone # (Auto) Eos # (Auto) Baso # (Auto) Absolute Nucleated RBC Nucleated RBC % PT 44.0 H INR 4.2 H Bld Gas Analysis Time Sample Site ABG pH ABG pCO2 ABG pO2 ABG HCO3 ABG Total CO2 ABG O2 Saturation ABG Base Excess Lars Test Respiration Rate O2 Delivery Device Vent Mode FiO2 EPAP IPAP Sodium Potassium Chloride Carbon Dioxide Anion Gap BUN Creatinine Estimated GFR (MDRD) Glucose Lactic Acid Calcium Total Bilirubin AST ALT Alkaline Phosphatase Troponin I High Sens B-Natriuretic Peptide 1807 H Total Protein Albumin Globulin Albumin/Globulin Ratio Lipase Coronavirus (PCR) - Rads (name of study) CXR Radiology: Final report received, EMP read indepedently, See rad report (Apparent low lung volumes, patchy opacities not very different from previous studies. CT recommended.) CTA chest Radiology: Final report received, EMP read indepedently, See rad report (Bilateral basilar patchy opacities; numerous ground-glass opacities bilaterally. Pulmonary edema vs broncho/atypical/viral pneumonia.) PD MEDICAL DECISION MAKING - ED course Complexity details: reviewed old records, reviewed results, re-evaluated patient, considered differential, d/w independent beauty consultant ED course: Patient was satting in the low 90's on 100% supplemental O2, with altered mental status. He was placed on BiPAP, due to concerns over potential COVID, although the patient also had a history of COPD and CHF. He was worked up with labs, ABG, EKG, and chest x-ray, and found to have pneumonia and CHF exacerbation, and started on antibiotics for this. He was also worked up with a CT scan of the chest PE protocol and no PE was found. His oxygenation was better with BiPAP, though the patient remained somnolent. BiPAP settings were adjusted somewhat so that the patient would have a better blood gases he was found to be alkalotic and hypercarbic, as well as still somewhat hypoxic. I felt the patient would need to be transferred for higher level of care, and I did speak with the on- call track vehicle repairer at [facility], who agreed to accept the patient in transfer to their service. - Critical Care Time(min): 90 Departure - Departure Disposition: 02 Transfer Acute Care Hosp Clinical Impression: Respiratory failure Qualifiers: Chronicity: acute on chronic Respiratory failure complication: hypoxia and hypercapnia Qualified Code(s): J96.21 - Acute and chronic respiratory failure with hypoxia CHF exacerbation Qualifiers: Heart failure type: unspecified Qualified Code(s): I50.9 - Heart failure, unspecified Pneumonia Qualifiers: Pneumonia type: due to unspecified organism Laterality: bilateral Lung location: unspecified part of lung Qualified Code(s): J18.9 - Pneumonia, unspecified organism Condition: Critical Discharge Date/Time: 02/09/20 15:52
[2020-02-09 15:03] VITALS: BP 130/80
== END 2020-02-09 15:52 | disposition short-term general hospital (02) ==
LOC: EDUNIT# → ED 10:05
DX: J96.91 Respiratory failure, unspecified with hypoxia (principal); J18.9 Pneumonia, unspecified organism; I50.9 Heart failure, unspecified; J43.9 Emphysema, unspecified; I10 Essential (primary) hypertension; F17.200 Nicotine dependence, unspecified, uncomplicated; Z99.81 Dependence on supplemental oxygen; Z20.828 Contact with and (suspected) exposure to other viral communicable diseases
CPT/HCPCS: 36415; 36600; 51702; 71045; 71275; 80053; 82803; 83605; 83690; 83880; 84484; 85025; 85610; 87040; 94660; 96365; 96368; 99291; 99292; Q9967; U0004; 81599

== ENCOUNTER 2020-08-11 | Outpatient (CLI) | payer MEDICARE | END 2020-08-11 23:59 | disposition EMS.NT | DX: R29.6 Repeated falls (principal) ==

== ENCOUNTER 2020-08-22 16:05 | Outpatient (CLI) | payer MEDICARE | END 2020-08-22 16:06 | disposition critical access hospital (66) | LOC: EMS 16:05 | PROVIDERS: ATTEND Surgery | DX: M25.552 Pain in left hip (principal) | CPT/HCPCS: A0425; A0429 ==

== ENCOUNTER 2020-08-22 16:21 | Emergency (ER) | payer MEDICARE ==
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
--- NOTE | 2020-08-22 18:06 | XRAY Report ---
PROCEDURE: Femur 2V LT INDICATIONS: fall, leg pain TECHNIQUE: 5 views of the femur were acquired. COMPARISON: None. FINDINGS: Bones: Patient is status post prior internal fixation of left femoral shaft with a healed distal femo ral shaft fracture and surgical hardware in place. No gross acute femoral fracture or dislocation. No gross hardware loosening or failure. Left hip and left knee joint osteoarthritic changes are seen. S uggestion of acute fracture involving inferior portion of left patella with minimal inferior displace ment of fracture fragment. No suspicious bony lesions. Soft tissues: Vascular calcifications are noted in posterior left thigh. Moderate suprapatellar joint effusion is likely present. IMPRESSION: 1. Prior fixation of left femur with postsurgical changes and healed mid to distal femoral shaft frac ture. No gross hardware loosening or failure. No acute femoral fracture or dislocation. 2. Slightly displaced inferior patella fracture as above. Reviewed by: Erick Soria MD on 08/22/2020 6:04 PM PST Approved by: Erick Soria MD on 08/22/2020 6:04 PM PST Station ID: [id number]
--- NOTE | 2020-08-22 18:54 | XRAY Report ---
PROCEDURE: Tib/Fib LT INDICATIONS: leg pain, s/p fall TECHNIQUE: 2 views of the tibia and fibula were acquired. COMPARISON: None FINDINGS: Bones: Prior fixation of visualized femoral shaft is seen. Acute oblique fracture is noted involving proximal tibial shaft with slight anterior and medial displacement at fracture site. There is prior d istal lower leg amputation with grossly intact surgical margin. There is likely old healed proximal t ibial shaft fracture with chronic-appearing deformity. Fracture involving inferior portion of patella is also noted width inferiorly displaced fractured fragment. Soft tissues: No suspicious soft tissue calcifications or masses. IMPRESSION: Acute slightly displaced proximal fibular shaft fracture and inferior patella fracture as above. Like ly old healed proximal tibial shaft fracture. Prior distal lower leg amputation. Reviewed by: Erick Soria MD on 08/22/2020 6:53 PM PST Approved by: Erick Soria MD on 08/22/2020 6:53 PM PST Station ID: [id number]
--- NOTE | 2020-08-22 18:56 | XRAY Report ---
PROCEDURE: Knee 2 View LT INDICATIONS: possible patellar fracture TECHNIQUE: 4 views of the left knee(s) were acquired. COMPARISON: None. FINDINGS: Bones: There is osteopenia. Prior internal fixation of distal femoral shaft is seen with old healed d istal femoral shaft fracture. There is also old healed fracture involving proximal tibial shaft. Acut e appearing fracture involving proximal fibular shaft is seen with minimal anterior and medial displa cement at fracture site. Acute appearing fracture involving inferior portion of patella is noted with inferior displacement of the fractured fragment. Soft tissues: Moderate joint effusion is seen. No suspicious soft tissue calcifications. IMPRESSION: 1. Acute appearing displaced inferior patella fracture. Moderate joint effusion. 2. Acute appearing minimally displaced proximal fibular shaft fracture. 3. Old healed distal femoral shaft fracture in proximal tibial shaft fracture. Reviewed by: Erick Soria MD on 08/22/2020 6:55 PM PST Approved by: Erick Soria MD on 08/22/2020 6:55 PM PST Station ID: [id number]
[2020-08-22 19:33] VITALS: BP 135/105
--- NOTE | 2020-08-22 20:07 | XRAY Report ---
PROCEDURE: Knee 2 View LT INDICATIONS: oblique views per ortho TECHNIQUE: 2 views of the left knee(s) were acquired. COMPARISON: Earlier left knee radiograph on the same date. FINDINGS: Bones: Again noted are old healed fractures of left distal femoral shaft and proximal tibial shaft wi th acute appearing minimally displaced inferior patellar fracture and proximal fibular shaft fracture . Old healed injury involving medial aspect of medial femoral tibial compartment is seen with heterot opic calcifications. Soft tissues: No joint effusion. No suspicious soft tissue calcifications. IMPRESSION: Acute-appearing proximal fibular shaft fracture and inferior patella fracture better constance luated on earlier studies. Old fractures in distal femur and proximal tibial shaft as above. Old inju ry involving medial aspect of medial femoral tibial compartment likely involving medial collateral li gament. Reviewed by: Erick Soria MD on 08/22/2020 8:05 PM PST Approved by: Erick Soria MD on 08/22/2020 8:05 PM PST Station ID: [id number]
== END 2020-08-22 20:55 | disposition home or self-care (01) ==
LOC: EDUNIT# → ED 16:21
DX: S82.092A Other fracture of left patella, initial encounter for closed fracture (principal); S82.832A Other fracture of upper and lower end of left fibula, initial encounter for closed fracture; W06.XXXA Fall from bed, initial encounter; Y92.003 Bedroom of unspecified non-institutional (private) residence as the place of occurrence of the external cause; Z89.442 Acquired absence of left ankle; I10 Essential (primary) hypertension; Z86.73 Personal history of transient ischemic attack (TIA), and cerebral infarction without residual deficits; Z79.01 Long term (current) use of anticoagulants; Z79.82 Long term (current) use of aspirin
CPT/HCPCS: 99283; 99284

== ENCOUNTER 2020-09-01 11:20 | Outpatient (CLI) | payer MEDICARE | END 2020-09-01 11:21 | disposition critical access hospital (66) | LOC: EMS 11:20 | PROVIDERS: ATTEND Surgery | DX: R53.1 Weakness (principal) | CPT/HCPCS: A0425; A0429 ==

== ENCOUNTER 2020-09-01 11:33 | Inpatient (IN) | payer MEDICARE, MEDICAID ==
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
[2020-09-01] MEDS ORDERED: SODIUM CHLORIDE 0.9% 1,000 ML IV STA (16:17)
[2020-09-01 16:42] LABS: BASOPHILS # (AUTO) 0.1 10^3/uL (0.0-0.1); BASOPHILS % (AUTO) 0.6 %; EOSINOPHILS # (AUTO) 0.1 10^3/uL (0.0-0.7); EOSINOPHILS % (AUTO) 1.1 %; HCT - HEMATOCRIT 48.4 % (42.0-52.0); HGB - HEMOGLOBIN 15.7 g/dL (14.0-18.0); LYMPHOCYTES # (AUTO) 0.8 10^3/uL (1.5-3.5); LYMPHOCYTES % (AUTO) 8.5 %; MEAN CORPUSCULAR HEMOGLOBIN 33.2 pg (27.0-31.0); MEAN CORPUSCULAR HGB CONC 32.4 g/dL (32.0-36.0); MEAN CORPUSCULAR VOLUME 102.3 fL (80.0-94.0); MEAN PLATELET VOLUME 12.3 fL (7.4-11.4); MONOCYTES # (AUTO) 0.6 10^3/uL (0.0-1.0); MONOCYTES % (AUTO) 6.2 %; NEUTROPHILS # (AUTO) 8.1 10^3/uL (1.5-6.6); NEUTROPHILS % (AUTO) 83.2 %; PLT - PLATELET COUNT 181 10^3/uL (130-450); RED BLOOD COUNT 4.73 10^6/uL (4.70-6.10); RED CELL DISTRIBUTION WIDTH 14.6 % (12.0-15.0); WHITE BLOOD COUNT 9.7 x10^3/uL (4.8-10.8)
[2020-09-01 16:43] LABS: PT - PROTHROMBIN TIME 31.3 secs (9.9-12.6)
[2020-09-01 16:57] LABS: ALBUMIN 3.5 g/dL (3.2-5.5); ALBUMIN/GLOBULIN RATIO 0.9 (1.0-2.2); BILIRUBIN,TOTAL 2.4 mg/dL (0.2-1.0); CALCIUM 9.6 mg/dL (8.5-10.3); CREATININE 0.9 mg/dL (0.6-1.2); POTASSIUM 4.7 mmol/L (3.5-5.0); TOTAL PROTEIN 7.5 g/dL (6.7-8.2)
[2020-09-01 23:50] LABS: BILIRUBIN,URINE NEGATIVE (NEGATIVE); GLUCOSE, URINE (UA) NEGATIVE (NEGATIVE); KETONES,URINE (UA) NEGATIVE (NEGATIVE); LEUKOCYTE ESTERASE, URINE NEGATIVE (NEGATIVE); NITRITE,URINE NEGATIVE (NEGATIVE); OCCULT BLOOD,URINE TRACE-LYSE (NEGATIVE); PH,URINE 5.5 PH (5.0-7.5); PROTEIN,URINE NEGATIVE (NEGATIVE); UROBILINOGEN,URINE 1 (NORMAL) E.U./dL (NORMAL)
[2020-09-01 23:53] LABS: CLARITY,URINE CLEAR (CLEAR)
[2020-09-02] MEDS ORDERED: POTASSIUM CHLORIDE 20 MEQ TABLET PO STA (13:33)
[2020-09-02] MEDS ORDERED: TAMSULOSIN 0.4 MG CAPSULE PO STA (13:33)
[2020-09-02] MEDS ORDERED: lisinopriL 5 MG TABLET PO STA (13:33)
[2020-09-02] MEDS ORDERED: WARFARIN 5 MG TABLET PO STA (13:33)
[2020-09-02] MEDS ORDERED: METOPROLOL SUCCINATE 25 MG TABLET PO STA (13:34)
[2020-09-02] MEDS ORDERED: levETIRAcetam 250 MG TABLET PO STA (13:35)
[2020-09-02] MEDS ORDERED: ASPIRIN CHEW 81 MG TABLET PO STA (13:35)
[2020-09-02] MEDS ORDERED: amLODIPine 5 MG TABLET PO STA (13:36)
--- NOTE | 2020-09-02 13:38 | ED Physician Documentation ---
ED Addendum - Addendum Addendum: 09/02/20 13:37 64-year-old male with a left hemiparetic CVA and a below the ankle amputation on the left side has become weak and unable to participate in his care at home after a fall resulted in a fracture to his left patella and proximal fibula. He is unable to participate in his care enough that his is no longer able to care for him at home. He was sent to the emergency department for evaluation when the home health nurse looked at his decubitus ulcers. The patient was hydrated in the emergency department yesterday and had some improvement in his cognitive ability we were unable to admit the patient to the hospital and we are looking for residential home placement. He did have a physical therapy challenge yesterday which he failed. Our plan with Mr. Gresham is to find placement. We were unable to provide a swing bed as he was unable to perform for physical therapy. I have discussed his case with the hospitalist Dr. Root and he will discuss the case with UR tomorrow with anticipation of available beds in the hospital 09/02/20 19:20
[2020-09-03] MEDS ORDERED: ATORVASTATIN 40 MG TABLET PO SCH (09:00)
[2020-09-03] MEDS ORDERED: WARFARIN 5 MG TABLET PO SCH (09:00)
[2020-09-03] MEDS: ASPIRIN CHEW 81 MG TABLET PO SCH (09:49)
[2020-09-03] MEDS: FINASTERIDE 5 MG TABLET PO SCH (09:50)
[2020-09-03] MEDS: FUROSEMIDE 20 MG TABLET PO SCH (09:50)
[2020-09-03] MEDS: levETIRAcetam 250 MG TABLET PO SCH ×2 (09:50→20:45)
[2020-09-03] MEDS: METOPROLOL SUCCINATE 25 MG TABLET PO SCH ×3 (09:51→21:55)
[2020-09-03] MEDS: POTASSIUM CHLORIDE 20 MEQ TABLET PO SCH (09:51)
[2020-09-03] MEDS: lisinopriL 5 MG TABLET PO SCH (09:51)
--- NOTE | 2020-09-03 14:33 | ED Physician Documentation ---
ED Addendum - Addendum Addendum: 09/03/20 14:32 Patient is awaiting placement in the emergency department. He states that he is willing to do physical therapy. Discussed with the security system administrator on duty, Ramila Arroyo, recommends admission to the floor. Discussed with Dr. Root, hospitalist who accepts. Departure - Departure Disposition: 65 [facility] DC/Xfer Clinical Impression: Dehydration, Pressure ulcer of left hip, stage 1 Pressure ulcer of ankle Qualifiers: Pressure injury stage: stage 3 Laterality: left Qualified Code(s): L89.523 - Pressure ulcer of left ankle, stage 3 Condition: Stable
--- NOTE | 2020-09-03 16:28 | HISTORY & PHYSICAL EXAMINATION ---
Chief Complaint - Chief Complaint Chief Complaint: Left leg pain History of Present Illness - Admitted From Admitted From:: Home - History Obtained From Records Reviewed: Yes History obtained from: Patient, ER Physician, EMR - History of Present Illness HPI Comment/Other: This is a 64-year-old male with a history of A. fib on Coumadin, history of st roke residual sided weakness, history of left ankle amputation, history of seizure disorder who presents to the emergency department 2 days ago due to leg pain. He was seen in the emergency department about 10 days prior after a fall at home and was found to the left fibula fracture and a patellar fracture. He was discharged home with orthopedic follow-up. Since he has been home at that time, he has not been moving around and his has had difficulty taking care of him. He has developed a left heel wound and left hip wound consistent with pressure ulcers. He currently has no complaints except for pain of the left lower extremity at the knee. He denies any chest pain or dyspnea. He has been in the emergency room for 48 hours now due to difficulty with placement. He has been seen by physical therapy and the patient was not participating. Given he is on able to go home, medicine has been consulted for admission. History - Past Medical History Cardiovascular: reports: Congestive heart failure, Hypertension, High cholesterol Respiratory: reports: COPD, Emphysema, Sleep apnea Neuro: reports: CVA, Seizure disorder Endocrine/Autoimmune: reports: None GI: reports: None : reports: Benign prostate hypertrophy HEENT: reports: None Psych: reports: Anxiety Musculoskeletal: reports: None Derm: reports: None MRSA Hx?: No - Past Surgical History Ortho: reports: Amputation HEENT: reports: Myringotomy (tubes) - Family & Social History Family History Comment/Other: Father from esophageal cancer. His mother in her 70s due to alcohol use. Living Situation: With spouse/s.o. Social History Notes: He lives at home with his . He quit smoking over 10 years ago. He previously smoked at least 20 years about a pack a day. Reports a remote history of alcohol abuse but no recent alcohol use. 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 - Substance History Use: Uses substance without health or social issues: NONE - POLST Patient has POLST: No POLST Status: Full Code (He and his have not discussed advanced directives in the past. Right now he states that he does want to be put on a ventilator if necessary and be resuscitated from a cardiac perspective.) Meds/Allgy - Home Medications Home Medications: Ambulatory Orders Medication Instructions Recorded Confirmed Aspirin 81 mg PO DAILY 06/04/18 08/22/20 Potassium Chloride 40 meq PO DAILY 06/04/18 09/03/20 Umeclidinium Brm/Vilanterol Tr 1 puffs INH DAILY 06/04/18 09/03/20 [Anoro Ellipta 62.5-25 Mcg INH] Warfarin [Coumadin] 5 mg PO DAILY 06/04/18 09/03/20 ALPRAZolam [Alprazolam] 0.5 mg PO QPM 06/05/18 09/03/20 Albuterol 2.5 mg INH Q6H 06/05/18 02/09/20 Finasteride 5 mg PO DAILY 06/05/18 09/03/20 Hydrocodone/Acetaminophen 1 tab PO TID PRN 06/05/18 09/03/20 [Hydrocodone-Acetamin 5-325 mg] Tamsulosin [Flomax] 0.4 mg PO 1730 06/05/18 09/03/20 Atorvastatin Calcium 40 mg PO DAILY PM 02/09/20 09/03/20 Furosemide 60 mg ORAL DAILY 02/09/20 09/03/20 Ipratropium/Albuterol [Duoneb] 3 ml INH Q6H 02/09/20 02/09/20 Levetiracetam [Keppra] 750 mg PO BID 02/09/20 09/03/20 Metoprolol Succinate 50 mg PO BID 02/09/20 09/03/20 lisinopriL [Zestril] 5 mg ORAL DAILY 02/09/20 09/03/20 - Allergies Allergies/Adverse Reactions: Allergies Allergy/AdvReac Type Severity Reaction Status Date / Time No Known Drug Allergies Allergy Verified 09/01/20 11:47 Review of Systems - Constitutional Constitutional: denies: Fever, Chills - Cardiovascular Cariovascular: denies: Chest pain, Exertional dyspnea, Decr. exercise tolerance - Respiratory Respiratory: denies: SOB at rest, SOB with exertion - Gastrointestinal Gastrointestinal: denies: Abdominal pain, Nausea, Vomiting - Musculoskeletal Musculoskeletal: reports: Limited range of motion, Joint pain - Hematologic/Lymphatic Hematologic/Lymphatic: reports: Bruising - All Other Systems All Other Systems: reports: Reviewed and negative Prior Level of Functionality: He states he normally ambulates with a cane or walker. He also has a wheelchair at home which she uses occasionally. Exam - Vital Signs Reviewed Vital Signs: Yes Vital Signs: Vital Signs x48h Pulse Resp BP Pulse Ox 09/03/20 14:45 88 20 120/85 H 96 - Physical Exam General Appearance: positive: No acute distress, Alert Eyes Bilateral: positive: Normal inspection, Conjunctivae nml ENT: positive: ENT inspection nml Neck: positive: Nml inspection Respiratory: positive: No respiratory distress. negative: Wheezes, Rales Cardiovascular: positive: Irregularly irregular. negative: Tachycardia, Systolic murmur Abdomen: positive: Non-tender, No distention. negative: Tenderness Skin: positive: Warm, Dry, Decubitus (Stage I left hip decubitus ulcer.), Other (He has stage III pressure ulcer at the stump of the left ankle where his prior amputation is present. No purulent drainage. He has chronic venous stasis changes over the bilateral lower extremities.) Extremities: positive: Other (He holds left lower extremity in a flexed position at the knee. He has a incision at the left ankle. Dressing is in place over the wound. His left upper extremity is also slightly contracted at the elbow.) Neurologic/Psychiatric: positive: Other (He has decreased motor strength in his left upper and lower extremity which is his baseline secondary to stroke). negative: Disoriented to person, Disoriented to place Conclusion/Plan - Problem List (1) Fibula fracture Conclusion/Plan: Stable. Continue pain control with hydrocodone as needed. We will ask o rthopedics to evaluate the patient as he was due for outpatient follow-up. This unfortunate has caused him to have decreased mobility. He has not been working with physical therapy and he will need long-term care. Appreciate social work input. Qualifiers: Encounter type: initial encounter Fibula location: proximal Fracture t ype: closed Fracture morphology: unspecified fracture morphology Laterality: left Qualified Code(s): S82.832A - Other fracture of upper and lower end of left fibula, initial encounter for closed fracture (2) Pressure ulcer of ankle Conclusion/Plan: We will continue with dressing changes and offloading pressure from the heel. We will ask wound care to see the patient on Sunday. Qualifiers: Pressure injury stage: stage 3 Laterality: left Qualified Code(s): L89.523 - Pressure ulcer of left ankle, stage 3 (3) Pressure ulcer of left hip, stage 1 Conclusion/Plan: Stable evidence of infection. We will continue with turns every few hours. Encourage patient to get up out of bed and into a chair. (4) Atrial fibrillation Conclusion/Plan: Stable and rate controlled. Continue Coumadin and metoprolol. Qualifiers: Atrial fibrillation type: unspecified Qualified Code(s): I48.91 - Unspecified atrial fibrillation (5) History of stroke with current residual effects Conclusion/Plan: Stable. Continue Coumadin and statin. (6) History of seizure disorder Conclusion/Plan: Stable. Continue Keppra. - Lab Results Lab results reviewed: Yes Hernan Bones: 09/01/20 16:30 09/01/20 16:30 - Diagnostic Imaging Results Diagnostic Imaging Results: positive: Final report reviewed Core Measures - Anticipated LOS I expect patient to be DC'd or transferred within 96 hours.: Yes - Issues Hospital Issues and Management Plan: 64-year-old male who has a left patella and fibular fracture presents due to left ankle and hip wound after being sedentary at home. cannot take care of him and he will be admitted for ambulatory dysfunction. - DVT/VTE - Prophylaxis VTE/DVT Device ordered at admit?: No VTE/DVT Prophylaxis med ordered at admit?: Yes
[2020-09-03 19:22] LABS: CORONAVIRUS 229E-RESP PCR NOT DETECTED; CORONAVIRUS HKU1-RESP PCR NOT DETECTED; CORONAVIRUS NL63-RESP PCR NOT DETECTED; CORONAVIRUS OC43-RESP PCR NOT DETECTED; HUMAN METAPNEUMOVIRUS NOT DETECTED; INFLUENZA A- RESP PCR PANEL NOT DETECTED; INFLUENZA B - RESP PCR PANEL NOT DETECTED; PARAINFLUENZA VIRUS 1 NOT DETECTED; PARAINFLUENZA VIRUS 2 NOT DETECTED; PARAINFLUENZA VIRUS 3 NOT DETECTED; PARAINFLUENZA VIRUS 4 NOT DETECTED; RHINOVIRUS/ENTEROVIRUS NOT DETECTED; SARS-CoV-2 -RESP PCR PANEL NOT DETECTED
[2020-09-03 19:23] LABS: B. PARAPERTUSSIS- RESP PCR PAN NOT DETECTED; B. PERTUSSIS- RESP PCR PANEL NOT DETECTED; C. PNEUMONIAE- RESP PCR PANEL NOT DETECTED; M. PNEUMONIAE- RESP PCR PANEL NOT DETECTED; RSV- RESP PCR PANEL NOT DETECTED
[2020-09-03] MEDS: SODIUM CHLORIDE FLUSH 0.9% 10 ML SYRINGE IVP SCH (20:45)
[2020-09-04] MEDS: SODIUM CHLORIDE FLUSH 0.9% 10 ML SYRINGE IVP SCH ×3 (00:48→15:57)
[2020-09-04] MEDS: HYDROcod/ACETAM 5/325 MG TABLET PO PRN ×2 (01:18→15:56)
[2020-09-04 05:30] LABS: PT - PROTHROMBIN TIME 45.8 secs (9.9-12.6)
[2020-09-04 05:41] LABS: INR 4.5 (0.8-1.2)
[2020-09-04] MEDS: HYDROmorphone 0.5 MG/0.5 ML SYRINGE IVP PRN (06:03)
[2020-09-04] MEDS: SODIUM CHLORIDE FLUSH 0.9% 10 ML SYRINGE IVP PRN (06:04)
--- NOTE | 2020-09-04 07:19 | PROVIDER PROGRESS NOTE ---
Subjective - Prog Note Date Prog Note Date: 09/04/20 - Subjective Subjective: His pain is controlled. He is going to try to work with physical therapy again. Current Medications - Current Medications Current Medications: Active Medications Hydrocodone Bitart/Acetaminophen (Hydrocod/Acetam 5/325 Mg Tablet) 1 tab PO Q4HR PRN PRN Reason: PAIN Last Admin: 09/04/20 15:56 Dose: 1 tab Documented by: Albuterol/Ipratropium (Ipratropium/Albuterol 3 Ml Neb) 3 ml INH Q4HR PRN PRN Reason: Wheezing Alprazolam (Alprazolam 0.25 Mg Tablet) 0.5 mg PO QPM RAUL Aspirin (Aspirin Chew 81 Mg Tablet) 81 mg PO DAILY COUNT INCLUDES THE [facility] Last Admin: 09/04/20 08:46 Dose: 81 mg Documented by: Atorvastatin Calcium (Atorvastatin 40 Mg Tablet) 40 mg PO QPM RAUL Finasteride (Finasteride 5 Mg Tablet) 5 mg PO DAILY COUNT INCLUDES THE [facility] Last Admin: 09/04/20 08:46 Dose: 5 mg Documented by: Furosemide (Furosemide 20 Mg Tablet) 60 mg PO DAILY COUNT INCLUDES THE [facility] Last Admin: 09/04/20 11:53 Dose: 60 mg Documented by: Hydromorphone HCl (Hydromorphone 0.5 Mg/0.5 Ml Syringe) 0.5 mg IVP Q2H PRN PRN Reason: PAIN Last Admin: 09/04/20 06:03 Dose: 0.5 mg Documented by: Levetiracetam (Levetiracetam 250 Mg Tablet) 750 mg PO BID COUNT INCLUDES THE [facility] Last Admin: 09/04/20 08:46 Dose: 750 mg Documented by: Lisinopril (Lisinopril 5 Mg Tablet) 5 mg PO DAILY COUNT INCLUDES THE [facility] Last Admin: 09/04/20 11:55 Dose: 5 mg Documented by: Metoprolol Succinate (Metoprolol Succinate 25 Mg Tablet) 25 mg PO BID COUNT INCLUDES THE [facility] Last Admin: 09/04/20 11:54 Dose: 25 mg Documented by: Potassium Chloride (Potassium Chloride 20 Meq Tablet) 40 meq PO DAILY COUNT INCLUDES THE [facility] Last Admin: 09/04/20 08:47 Dose: 40 meq Documented by: Sodium Chloride (Sodium Chloride Flush 0.9% 10 Ml Syringe) 10 ml IVP PRN PRN PRN Reason: NEEDED PER PROVIDER ORDERS Last Admin: 09/04/20 06:04 Dose: 10 ml Documented by: Sodium Chloride (Sodium Chloride Flush 0.9% 10 Ml Syringe) 10 ml IVP 0100,0900,1700 COUNT INCLUDES THE [facility] Last Admin: 09/04/20 15:57 Dose: 10 ml Documented by: Warfarin Sodium (Warfarin 5 Mg Tablet) 5 mg PO QDWARFARIN COUNT INCLUDES THE [facility] Aspirin 81 mg PO DAILY 06/04/18 Potassium Chloride 40 meq PO DAILY 06/04/18 Umeclidinium Brm/Vilanterol Tr [Anoro Ellipta 62.5-25 Mcg INH] 1 puffs INH DAILY 06/04/18 Warfarin [Coumadin] 5 mg PO DAILY 06/04/18 ALPRAZolam [Alprazolam] 0.5 mg PO QPM 06/05/18 Albuterol 2.5 mg INH Q6H PRN 06/05/18 Finasteride 5 mg PO DAILY 06/05/18 Hydrocodone/Acetaminophen [Hydrocodone-Acetamin 5-325 mg] 1 tab PO TID PRN 06/05/18 Tamsulosin [Flomax] 0.4 mg PO 1730 06/05/18 Atorvastatin Calcium 40 mg PO DAILY PM 02/09/20 Furosemide 60 mg ORAL DAILY 02/09/20 Ipratropium/Albuterol [Duoneb] 3 ml INH Q6H PRN 02/09/20 Levetiracetam [Keppra] 750 mg PO BID 02/09/20 Metoprolol Succinate 50 mg PO BID 02/09/20 lisinopriL [Zestril] 5 mg ORAL DAILY 02/09/20 Objective - Vital Signs/Intake & Output Reviewed Vital Signs: Yes Vital Signs: Vital Signs x48h Temp Pulse Resp BP Pulse Ox 09/04/20 06:39 36.2 C L 68 18 93/56 L 98 09/04/20 01:06 36.5 C 91 18 120/67 95 Intake & Output: Intake & Output 09/01/20 09/02/20 09/03/20 09/04/20 23:59 23:59 23:59 23:59 Intake Total 4208 471 2477 Output Total 250 200 Balance [phone] - Objective General Appearance: positive: No acute distress, Alert Eyes Bilateral: positive: Normal inspection ENT: positive: Other (Nasal cannula in place.) Respiratory: positive: No respiratory distress Abdomen: positive: Non-tender, No distention. negative: Tenderness Skin: positive: Warm, Dry, Other (Dressing is in place over the left ankle pressure. Multiple areas of ecchymosis noted over the left lower extremity for.) Extremities: positive: No pedal edema - Lab Results Fish Bones: 09/01/20 16:30 09/01/20 16:30 Other Labs: Lab Results x24hrs 09/04/20 09/03/20 Range/Units 05:19 18:10 PT 45.8 H (9.9-12.6) secs INR 4.5 H* (0.8-1.2) Nasal Adenovirus (PCR) NOT DETECTED Nasal B. parapertussis DNA (PCR) NOT DETECTED Nasal Coronavir 229E PCR NOT DETECTED Nasal Coronavir HKU1 PCR NOT DETECTED Nasal Coronavir NL63 PCR NOT DETECTED Nasal Coronavir OC43 PCR NOT DETECTED Nasal Enterovir/Rhinovir PCR NOT DETECTED Nasal Influenza B PCR NOT DETECTED Nasal Influenza A PCR NOT DETECTED Nasal Parainfluen 1 PCR NOT DETECTED Nasal Parainfluen 2 PCR NOT DETECTED Nasal Parainfluen 3 PCR NOT DETECTED Nasal Parainfluen 4 PCR NOT DETECTED Nasal RSV (PCR) NOT DETECTED Nasal B.pertussis DNA PCR NOT DETECTED Nasal C.pneumoniae (PCR) NOT DETECTED Guerrero Human Metapneumo PCR NOT DETECTED Nasal M.pneumoniae (PCR) NOT DETECTED Nasal SARS-CoV-2 (PCR) NOT DETECTED ABX Reporting Has patient been on IV antibiotics over the past 48 hours?: No Assessment/Plan - Problem List (1) Fibula fracture Impression: Stable. His pain is relatively well controlled. He has not been working with p hysical therapy despite 2 evaluations. He is agreeable to trying with physical therapy again but if he does not participate, he will need nursing home care. Appreciate social work input. Continue pain control with hydrocodone as needed. We will also place him on standing Tylenol. We will ask orthopedics to see him as he was due for outpatient follow-up. Qualifiers: Encounter type: initial encounter Fibula location: proximal Fracture type: closed Fracture morphology: unspecified fracture morphology Laterality: left Qualified Code(s): S82.832A - Other fracture of upper and lower end of left fibula, initial encounter for closed fracture (2) Pressure ulcer of ankle Impression: We will continue with daily dressing changes. Will ask wound care to see the patient on Sunday. We will continue to offload pressure from the heel. Frequent turns. Qualifiers: Pressure injury stage: stage 3 Laterality: left Qualified Code(s): L89.523 - Pressure ulcer of left ankle, stage 3 (3) Pressure ulcer of left hip, stage 1 Impression: Stable. Continue frequent turns to prevent further wound breakdown. (4) Atrial fibrillation Impression: His INR is elevated and so we will hold Coumadin today and reduce the dose to 5 mg starting tomorrow. Recheck INR in the morning. Continue metoprolol. Qualifiers: Atrial fibrillation type: unspecified Qualified Code(s): I48.91 - Unsp ecified atrial fibrillation (5) History of stroke with current residual effects Impression: Stable. Continue anticoagulation and statin. (6) History of seizure disorder Impression: Stable. Continue Keppra.
[2020-09-04] MEDS ORDERED: LACTATED RINGERS 500 ML IV ONE (07:57)
--- NOTE | 2020-09-04 08:17 | PHARMACY PROGRESS NOTE ---
- Best Possible Medication History Admit Date and Time: 09/03/20 1434 Processed by: Pharmacy Medication History completed: Yes Patient Interview: Completed Secondary Source(s): Pharmacy records, Insurance records As the person ultimately responsible for medication therapy, providers are able to order a medication from an existing home medication list in [facility] via the "Reconcile Routine" prior to Confirmation of that medication by postal support employee. Such practice is discouraged except when the physician, in their clinical judgment, deems that a medical need exists for a medication without regard to previous use.
[2020-09-04] MEDS: levETIRAcetam 250 MG TABLET PO SCH ×2 (08:46→21:11)
[2020-09-04] MEDS: FINASTERIDE 5 MG TABLET PO SCH (08:46)
[2020-09-04] MEDS: ASPIRIN CHEW 81 MG TABLET PO SCH (08:46)
[2020-09-04] MEDS: POTASSIUM CHLORIDE 20 MEQ TABLET PO SCH (08:47)
[2020-09-04] MEDS: FUROSEMIDE 20 MG TABLET PO SCH (11:53)
[2020-09-04] MEDS: METOPROLOL SUCCINATE 25 MG TABLET PO SCH ×2 (11:54→21:14)
[2020-09-04] MEDS: lisinopriL 5 MG TABLET PO SCH (11:55)
[2020-09-04] MEDS ORDERED: WARFARIN 5 MG TABLET PO SCH (14:00)
[2020-09-04] MEDS ORDERED: IPRATROPIUM/ALBUTEROL 3 ML NEB INH PRN (17:01)
[2020-09-04] MEDS: ATORVASTATIN 40 MG TABLET PO SCH (21:12)
[2020-09-04] MEDS: ALPRAZolam 0.25 MG TABLET PO SCH (21:12)
[2020-09-04] MEDS: ACETAMINOPHEN 500 MG TABLET PO SCH (21:14)
[2020-09-05] MEDS: oxyCODONE 5 MG TABLET PO PRN ×3 (00:40→16:01)
[2020-09-05] MEDS: SODIUM CHLORIDE FLUSH 0.9% 10 ML SYRINGE IVP SCH ×3 (00:43→16:01)
[2020-09-05] MEDS: HYDROmorphone 0.5 MG/0.5 ML SYRINGE IVP PRN (03:20)
[2020-09-05] MEDS: ACETAMINOPHEN 500 MG TABLET PO SCH ×3 (05:03→21:18)
[2020-09-05 05:36] LABS: INR 3.8 (0.8-1.2); PT - PROTHROMBIN TIME 38.4 secs (9.9-12.6)
[2020-09-05] MEDS: levETIRAcetam 250 MG TABLET PO SCH ×2 (09:14→21:19)
[2020-09-05] MEDS: ASPIRIN CHEW 81 MG TABLET PO SCH (09:15)
[2020-09-05] MEDS: FINASTERIDE 5 MG TABLET PO SCH (09:16)
[2020-09-05] MEDS: POTASSIUM CHLORIDE 20 MEQ TABLET PO SCH (09:19)
[2020-09-05] MEDS: METOPROLOL SUCCINATE 25 MG TABLET PO SCH ×2 (10:47→21:20)
--- NOTE | 2020-09-05 11:15 | CONSULTATION NOTE ---
Referring Provider Name of Referring Provider:: Dr. Ted Root Consult Date: 09/05/20 Chief Complaint - Chief Complaint Chief Complaint: Pain left knee History of Present Illness - History Obtained From Records Reviewed: Chart reviewed History obtained from: Patient - History of Present Illness HPI Comment/Other: This is a 64-year-old man who apparently rolled out of bed and hurt his left knee in the fall approximately 2 weeks ago. He was initially evaluated, sent home in return for hospital admission. He has had previous problems with his left lower extremity from cerebrovascular accident with left Kash paresis. He is also had a Syme amputation of the left ankle. He uses a wheelchair mostly and also a walker but is unclear how much weight he can put on his left leg.He is alert, seems somewhat slow on mentation.He has had previous fracture of his left femur and had intramedullary rodding of his left femur in the past History - Past Medical History Cardiovascular: reports: Congestive heart failure, Hypertension, High cholesterol Respiratory: reports: COPD, Emphysema, Sleep apnea Neuro: reports: CVA, Seizure disorder Endocrine/Autoimmune: reports: None GI: reports: None : reports: Benign prostate hypertrophy HEENT: reports: None Psych: reports: Anxiety Musculoskeletal: reports: None Derm: reports: None MRSA Hx?: No - Past Surgical History Ortho: reports: Amputation HEENT: reports: Myringotomy (tubes) - Family & Social History Family History Comment/Other: Father from esophageal cancer. His mother in her 70s due to alcohol use. Living Situation: With spouse/s.o. Social History Notes: He lives at home with his . He quit smoking over 10 years ago. He previously smoked at least 20 years about a pack a day. Reports a remote history of alcohol abuse but no recent alcohol use. 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 - Substance History Use: Uses substance without health or social issues: NONE - POLST Patient has POLST: No POLST Status: Full Code (He and his have not discussed advanced directives in the past. Right now he states that he does want to be put on a ventilator if necessary and be resuscitated from a cardiac perspective.) Meds/Allgy - Home Medications Home Medications: Ambulatory Orders Medication Instructions Recorded Confirmed Aspirin 81 mg PO DAILY 06/04/18 09/04/20 Potassium Chloride 40 meq PO DAILY 06/04/18 09/03/20 Umeclidinium Brm/Vilanterol Tr 1 puffs INH DAILY 06/04/18 09/03/20 [Anoro Ellipta 62.5-25 Mcg INH] Warfarin [Coumadin] 5 mg PO DAILY 06/04/18 09/03/20 ALPRAZolam [Alprazolam] 0.5 mg PO QPM 06/05/18 09/03/20 Albuterol 2.5 mg INH Q6H PRN 06/05/18 09/04/20 Finasteride 5 mg PO DAILY 06/05/18 09/03/20 Hydrocodone/Acetaminophen 1 tab PO TID PRN 06/05/18 09/03/20 [Hydrocodone-Acetamin 5-325 mg] Tamsulosin [Flomax] 0.4 mg PO 1730 06/05/18 09/03/20 Atorvastatin Calcium 40 mg PO DAILY PM 02/09/20 09/03/20 Furosemide 60 mg ORAL DAILY 02/09/20 09/03/20 Ipratropium/Albuterol [Duoneb] 3 ml INH Q6H PRN 02/09/20 09/04/20 Levetiracetam [Keppra] 750 mg PO BID 02/09/20 09/03/20 Metoprolol Succinate 50 mg PO BID 02/09/20 09/03/20 lisinopriL [Zestril] 5 mg ORAL DAILY 02/09/20 09/03/20 - Allergies Allergies/Adverse Reactions: Allergies Allergy/AdvReac Type Severity Reaction Status Date / Time No Known Drug Allergies Allergy Verified 09/01/20 11:47 Exam - Vital Signs Vital Signs: Vital Signs x48h Temp Pulse Pulse Resp BP BP Pulse Ox 09/05/20 08:02 36.4 C L 68 20 108/54 L 97 09/05/20 05:45 88 98/77 09/05/20 05:00 36.5 C 60 20 96/66 95 - Physical Exam General Appearance: negative: Other (Appears older than stated age) Peripheral Pulses: negative: Other (No acute vascular compromise) Extremities: negative: Other (Left knee has flexion contracture of about 45 degrees. He does have localized tenderness to the inferior pole of left patella there are some superficial abrasions over the patellar area that are healing. He has a Syme amputation with a superficial ulcer left side. The left knee is stable to exam.) Neurologic/Psychiatric: positive: Oriented x3 Conclusion and Plan - Lab Results Laboratory Results 09/05/20 05:00: PT 38.4 H, INR 3.8 H 09/04/20 05:19: PT 45.8 H, INR 4.5 H* 09/03/20 18:10: Nasal Adenovirus (PCR) NOT DETECTED, Nasal B. parapertussis DNA (PCR) NOT DETECTED, Nasal Coronavir 229E PCR NOT DETECTED, Nasal Coronavir HKU1 PCR NOT DETECTED, Nasal Coronavir NL63 PCR NOT DETECTED, Nasal Coronavir OC43 PCR NOT DETECTED, Nasal Enterovir/Rhinovir PCR NOT DETECTED, Nasal Influenza B PCR NOT DETECTED, Nasal Influenza A PCR NOT DETECTED, Nasal Parainfluen 1 PCR NOT DETECTED, Nasal Parainfluen 2 PCR NOT DETECTED, Nasal Parainfluen 3 PCR NOT DETECTED, Nasal Parainfluen 4 PCR NOT DETECTED, Nasal RSV (PCR) NOT DETECTED, Nasal B.pertussis DNA PCR NOT DETECTED, Nasal C.pneumoniae (PCR) NOT DETECTED, [place]ro Human Metapneumo PCR NOT DETECTED, Nasal M.pneumoniae (PCR) NOT DETECTED, Nasal SARS-CoV-2 (PCR) NOT DETECTED - Diagnostic Imaging Results Diagnostic Imaging Results: negative: Read independently (X-rays were from 08/22/2020. He has a healed femur fracture with oscar in place. He has acute nondisplaced inferior pole, transverse left patellar fracture) - Diagnosis Diagnosis: Nondisplaced, transverse, closed inferior pole patellar fracture left knee - Plan Plan: With left hemiparesis and flexion contracture to the left knee, I worry about applying any brace with his history of pressure sores. Therefore, I would recommend ambulation, nonweightbearing left leg. He would be a very high risk operative candidate and as long as his fracture remains nondisplaced there is no concern for surgery. However, even if the fracture displaces I am not sure certain that surgery would be warranted. Follow-up in the orthopedic clinic would be helpful.
[2020-09-05] MEDS: WARFARIN 5 MG TABLET PO SCH (14:31)
--- NOTE | 2020-09-05 15:05 | PROVIDER PROGRESS NOTE ---
Subjective - Prog Note Date Prog Note Date: 09/05/20 - Subjective Subjective: Reports feeling well. Pain is controlled. He was able to work with physical therapy today. Current Medications - Current Medications Current Medications: Active Medications Acetaminophen (Acetaminophen 500 Mg Tablet) 1,000 mg PO TID [facility] Last Admin: 09/05/20 14:34 Dose: 1,000 mg Documented by: Albuterol/Ipratropium (Ipratropium/Albuterol 3 Ml Neb) 3 ml INH Q4HR PRN PRN Reason: Wheezing Alprazolam (Alprazolam 0.25 Mg Tablet) 0.5 mg PO QPM [facility] Last Admin: 09/04/20 21:12 Dose: 0.5 mg Documented by: Aspirin (Aspirin Chew 81 Mg Tablet) 81 mg PO DAILY [facility] Last Admin: 09/05/20 09:15 Dose: 81 mg Documented by: Atorvastatin Calcium (Atorvastatin 40 Mg Tablet) 40 mg PO QPM [facility] Last Admin: 09/04/20 21:12 Dose: 40 mg Documented by: Finasteride (Finasteride 5 Mg Tablet) 5 mg PO DAILY [facility] Last Admin: 09/05/20 09:16 Dose: 5 mg Documented by: Furosemide (Furosemide 20 Mg Tablet) 40 mg PO DAILY [facility] Hydromorphone HCl (Hydromorphone 0.5 Mg/0.5 Ml Syringe) 0.5 mg IVP Q2H PRN PRN Reason: PAIN Last Admin: 09/05/20 03:20 Dose: 0.5 mg Documented by: Levetiracetam (Levetiracetam 250 Mg Tablet) 750 mg PO BID [facility] Last Admin: 09/05/20 09:14 Dose: 750 mg Documented by: Lisinopril (Lisinopril 5 Mg Tablet) 2.5 mg PO DAILY [facility] Metoprolol Succinate (Metoprolol Succinate 25 Mg Tablet) 25 mg PO BID [facility] Last Admin: 09/05/20 10:47 Dose: 25 mg Documented by: Oxycodone HCl (Oxycodone 5 Mg Tablet) 5 mg PO Q4HR PRN PRN Reason: PAIN Last Admin: 09/05/20 05:03 Dose: 5 mg Documented by: Potassium Chloride (Potassium Chloride 20 Meq Tablet) 40 meq PO DAILY [facility] Last Admin: 09/05/20 09:19 Dose: 40 meq Documented by: Sodium Chloride (Sodium Chloride Flush 0.9% 10 Ml Syringe) 10 ml IVP PRN PRN PRN Reason: NEEDED PER PROVIDER ORDERS Last Admin: 09/04/20 06:04 Dose: 10 ml Documented by: Sodium Chloride (Sodium Chloride Flush 0.9% 10 Ml Syringe) 10 ml IVP 0100,0 900,1700 [facility] Last Admin: 09/05/20 09:19 Dose: 10 ml Documented by: Warfarin Sodium (Warfarin 5 Mg Tablet) 5 mg PO QDWARFARIN [facility] Last Admin: 09/05/20 14:31 Dose: Not Given Documented by: Aspirin 81 mg PO DAILY 06/04/18 Potassium Chloride 40 meq PO DAILY 06/04/18 Umeclidinium Brm/Vilanterol Tr [Anoro Ellipta 62.5-25 Mcg INH] 1 puffs INH DAILY 06/04/18 Warfarin [Coumadin] 5 mg PO DAILY 06/04/18 ALPRAZolam [Alprazolam] 0.5 mg PO QPM 06/05/18 Albuterol 2.5 mg INH Q6H PRN 06/05/18 Finasteride 5 mg PO DAILY 06/05/18 Hydrocodone/Acetaminophen [Hydrocodone-Acetamin 5-325 mg] 1 tab PO TID PRN 06/05/18 Tamsulosin [Flomax] 0.4 mg PO 1730 06/05/18 Atorvastatin Calcium 40 mg PO DAILY PM 02/09/20 Furosemide 60 mg ORAL DAILY 02/09/20 Ipratropium/Albuterol [Duoneb] 3 ml INH Q6H PRN 02/09/20 Levetiracetam [Keppra] 750 mg PO BID 02/09/20 Metoprolol Succinate 50 mg PO BID 02/09/20 lisinopriL [Zestril] 5 mg ORAL DAILY 02/09/20 Objective - Vital Signs/Intake & Output Reviewed Vital Signs: Yes Vital Signs: Vital Signs x48h Temp Pulse Resp BP Pulse Ox 09/05/20 12:37 36.4 C L 94 20 107/63 96 09/05/20 08:02 36.4 C L 68 20 108/54 L 97 Intake & Output: Intake & Output 09/02/20 09/03/20 09/04/20 09/05/20 23:59 23:59 23:59 23:59 Intake Total 250 4420 960 Output Total 300 500 Balance 250 4120 460 - Objective General Appearance: positive: No acute distress, Alert Eyes Bilateral: positive: Normal inspection ENT: positive: ENT inspection nml Respiratory: positive: No respiratory distress Skin: positive: Other (Dressing is in place over the left ankle stump where his prior amputation was performed.) Extremities: positive: Other (He does have contractures of his left upper and lower extremity although he is more mobile in his upper extremity.) - Lab Results Fish Bones: 09/01/20 16:30 09/01/20 16:30 Other Labs: Lab Results x24hrs 09/05/20 Range/Units 05:00 PT 38.4 H (9.9-12.6) secs INR 3.8 H (0.8-1.2) Assessment/Plan - Problem List (1) Fibula fracture Impression: Stable. I asked orthopedics to see him today and they recommend ambulation with nonweightbearing left leg. His pain is controlled at this time. He was able to work with physical therapy today and they are now recommending a intermediate facility. Qualifiers: Encounter type: initial encounter Fibula location: proximal Fracture typ e: closed Fracture morphology: unspecified fracture morphology Laterality: left Qualified Code(s): S82.832A - Other fracture of upper and lower end of left fibula, initial encounter for closed fracture (2) Pressure ulcer of ankle Impression: Stable. Continue dressing changes and frequent turns as well as offloading of the heel. Will ask wound care to see him tomorrow Qualifiers: Pressure injury stage: stage 3 Laterality: left Qualified Code(s): L89.523 - Pressure ulcer of left ankle, stage 3 (3) Pressure ulcer of left hip, stage 1 Impression: Stable. Continue with frequent turns. (4) Atrial fibrillation Impression: His INR remains elevated. We will hold Coumadin again today and resume tomorrow at a lower dose of 5 mg. Continue metoprolol. Check INR in the morning. Qualifiers: Atrial fibrillation type: unspecified Qualified Code(s): I48.91 - Unspecified atrial fibrillation (5) History of stroke with current residual effects Impression: Stable we are continuing Coumadin and statin. (6) History of seizure disorder Impression: Stable. Continue Keppra.
[2020-09-05] MEDS: ATORVASTATIN 40 MG TABLET PO SCH (21:19)
[2020-09-05] MEDS: ALPRAZolam 0.25 MG TABLET PO SCH (21:19)
[2020-09-06] MEDS: SODIUM CHLORIDE FLUSH 0.9% 10 ML SYRINGE IVP SCH ×3 (01:24→21:08)
[2020-09-06] MEDS: ACETAMINOPHEN 500 MG TABLET PO SCH ×3 (05:40→21:09)
[2020-09-06] MEDS: oxyCODONE 5 MG TABLET PO PRN ×3 (05:48→21:09)
[2020-09-06 05:58] LABS: INR 2.7 (0.8-1.2)
[2020-09-06] MEDS: FUROSEMIDE 20 MG TABLET PO SCH (09:44)
[2020-09-06] MEDS: ASPIRIN CHEW 81 MG TABLET PO SCH (09:44)
[2020-09-06] MEDS: POTASSIUM CHLORIDE 20 MEQ TABLET PO SCH (09:44)
[2020-09-06] MEDS: levETIRAcetam 250 MG TABLET PO SCH ×2 (09:45→21:08)
[2020-09-06] MEDS: FINASTERIDE 5 MG TABLET PO SCH (09:50)
[2020-09-06] MEDS: lisinopriL 5 MG TABLET PO SCH (09:51)
[2020-09-06] MEDS: METOPROLOL SUCCINATE 25 MG TABLET PO SCH ×2 (09:51→21:08)
[2020-09-06] MEDS: WARFARIN 5 MG TABLET PO SCH (13:53)
--- NOTE | 2020-09-06 17:46 | PROVIDER PROGRESS NOTE ---
Subjective - Prog Note Date Prog Note Date: 09/06/20 - Subjective Subjective: Reports feeling well. Has no complaints today. Has been working with physical therapy. Current Medications - Current Medications Current Medications: Active Medications Acetaminophen (Acetaminophen 500 Mg Tablet) 1,000 mg PO TID [facility] Last Admin: 09/06/20 13:49 Dose: 1,000 mg Documented by: Albuterol/Ipratropium (Ipratropium/Albuterol 3 Ml Neb) 3 ml INH Q4HR PRN PRN Reason: Wheezing Alprazolam (Alprazolam 0.25 Mg Tablet) 0.5 mg PO QPM [facility] Last Admin: 09/05/20 21:19 Dose: 0.5 mg Documented by: Aspirin (Aspirin Chew 81 Mg Tablet) 81 mg PO DAILY [facility] Last Admin: 09/06/20 09:44 Dose: 81 mg Documented by: Atorvastatin Calcium (Atorvastatin 40 Mg Tablet) 40 mg PO QPM [facility] Last Admin: 09/05/20 21:19 Dose: 40 mg Documented by: Finasteride (Finasteride 5 Mg Tablet) 5 mg PO DAILY [facility] Last Admin: 09/06/20 09:50 Dose: 5 mg Documented by: Furosemide (Furosemide 20 Mg Tablet) 40 mg PO DAILY [facility] Last Admin: 09/06/20 09:44 Dose: 40 mg Documented by: Levetiracetam (Levetiracetam 250 Mg Tablet) 750 mg PO BID [facility] Last Admin: 09/06/20 09:45 Dose: 750 mg Documented by: Lisinopril (Lisinopril 5 Mg Tablet) 2.5 mg PO DAILY [facility] Last Admin: 09/06/20 09:51 Dose: Not Given Documented by: Metoprolol Succinate (Metoprolol Succinate 25 Mg Tablet) 25 mg PO BID [facility] Last Admin: 09/06/20 09:51 Dose: Not Given Documented by: Oxycodone HCl (Oxycodone 5 Mg Tablet) 5 mg PO Q4HR PRN PRN Reason: PAIN Last Admin: 09/06/20 13:53 Dose: 5 mg Documented by: Potassium Chloride (Potassium Chloride 20 Meq Tablet) 40 meq PO DAILY [facility] Last Admin: 09/06/20 09:44 Dose: 40 meq Documented by: Sodium Chloride (Sodium Chloride Flush 0.9% 10 Ml Syringe) 10 ml IVP PRN PRN PRN Reason: NEEDED PER PROVIDER ORDERS Last Admin: 09/04/20 06:04 Dose: 10 ml Documented by: Sodium Chloride (Sodium Chloride Flush 0.9% 10 Ml Syringe) 10 ml IVP 0100,0900,1700 [facility] Last Admin: 09/06/20 09:51 Dose: 10 ml Documented by: Warfarin Sodium (Warfarin 5 Mg Tablet) 5 mg PO QDWARFARIN [facility] Last Admin: 09/06/20 13:53 Dose: 5 mg Documented by: Aspirin 81 mg PO DAILY 06/04/18 Potassium Chloride 40 meq PO DAILY 06/04/18 Umeclidinium Brm/Vilanterol Tr [Anoro Ellipta 62.5-25 Mcg INH] 1 puffs INH DAILY 06/04/18 Warfarin [Coumadin] 5 mg PO DAILY 06/04/18 ALPRAZolam [Alprazolam] 0.5 mg PO QPM 06/05/18 Albuterol 2.5 mg INH Q6H PRN 06/05/18 Finasteride 5 mg PO DAILY 06/05/18 Hydrocodone/Acetaminophen [Hydrocodone-Acetamin 5-325 mg] 1 tab PO TID PRN 06/05/18 Tamsulosin [Flomax] 0.4 mg PO 1730 06/05/18 Atorvastatin Calcium 40 mg PO DAILY PM 02/09/20 Furosemide 60 mg ORAL DAILY 02/09/20 Ipratropium/Albuterol [Duoneb] 3 ml INH Q6H PRN 02/09/20 Levetiracetam [Keppra] 750 mg PO BID 02/09/20 Metoprolol Succinate 50 mg PO BID 02/09/20 lisinopriL [Zestril] 5 mg ORAL DAILY 02/09/20 Objective - Vital Signs/Intake & Output Reviewed Vital Signs: Yes Vital Signs: Vital Signs x48h Temp Pulse Resp BP Pulse Ox 09/06/20 15:49 36.2 C L 97 18 106/47 L 100 09/06/20 11:20 36.4 C L 82 16 124/75 99 Intake & Output: Intake & Output 09/03/20 09/04/20 09/05/20 09/06/20 23:59 23:59 23:59 23:59 Intake Total 250 4420 1110 360 Output Total 300 500 350 Balance 250 4120 610 10 - Objective General Appearance: positive: No acute distress, Alert Eyes Bilateral: positive: Normal inspection ENT: positive: ENT inspection nml Neck: positive: Nml inspection Respiratory: positive: No respiratory distress Skin: positive: Other (Dressing in place over the left ankle stump.) - Lab Results Fish Bones: 09/01/20 16:30 09/01/20 16:30 Other Labs: Lab Results x24hrs 09/06/20 Range/Units 05:25 PT 28.0 H (9.9-12.6) secs INR 2.7 H (0.8-1.2) Assessment/Plan - Problem List (1) Fibula fracture Impression: He has been able to work with physical therapy. Plan is to discharge home tomorrow to long-term facility. Continue current pain medications. Per Orthopedic surgery, nonweightbearing on left lower extremity. Qualifiers: Encounter type: initial encounter Fibula location: proximal Fracture type: closed Fracture morphology: unspecified fracture morphology Laterali ty: left Qualified Code(s): S82.832A - Other fracture of upper and lower end of left fibula, initial encounter for closed fracture (2) Pressure ulcer of ankle Impression: Wound care was not available today. We will contact them tomorrow to evaluate the patient prior to discharge to a long-term facility. Continue with offloading pressure from the heel. Qualifiers: Pressure injury stage: stage 3 Laterality: left Qualified Code(s): L89.523 - Pressure ulcer of left ankle, stage 3 (3) Pressure ulcer of left hip, stage 1 Impression: Continue with frequent turns and dressing changes. (4) Atrial fibrillation Impression: We have resumed his home Coumadin today. Continue metoprolol. Qualifiers: Atrial fibrillation type: unspecified Qualified Code(s): I48.91 - Unspecified atrial fibrillation (5) History of stroke with current residual effects Impression: Stable. Continue Coumadin and statin. (6) History of seizure disorder Impression: Stable. Continue Keppra.
[2020-09-06] MEDS: ATORVASTATIN 40 MG TABLET PO SCH (21:08)
[2020-09-06] MEDS: ALPRAZolam 0.25 MG TABLET PO SCH (21:08)
[2020-09-07] MEDS: oxyCODONE 5 MG TABLET PO PRN ×4 (01:13→20:01)
[2020-09-07] MEDS: SODIUM CHLORIDE FLUSH 0.9% 10 ML SYRINGE IVP SCH ×3 (01:18→17:19)
[2020-09-07] MEDS: ACETAMINOPHEN 500 MG TABLET PO SCH ×3 (05:26→22:15)
[2020-09-07] MEDS: METOPROLOL SUCCINATE 25 MG TABLET PO SCH ×2 (08:43→22:15)
[2020-09-07] MEDS: lisinopriL 5 MG TABLET PO SCH (08:43)
[2020-09-07] MEDS: FUROSEMIDE 20 MG TABLET PO SCH (08:44)
[2020-09-07] MEDS: levETIRAcetam 250 MG TABLET PO SCH ×2 (08:44→22:15)
[2020-09-07] MEDS: ASPIRIN CHEW 81 MG TABLET PO SCH (08:45)
[2020-09-07] MEDS: FINASTERIDE 5 MG TABLET PO SCH (08:45)
[2020-09-07] MEDS: POTASSIUM CHLORIDE 20 MEQ TABLET PO SCH (08:45)
[2020-09-07 09:12] LABS: BASOPHILS % (AUTO) 0.5 %; EOSINOPHILS # (AUTO) 0.3 10^3/uL (0.0-0.7); EOSINOPHILS % (AUTO) 4.2 %; HGB - HEMOGLOBIN 12.8 g/dL (14.0-18.0); LYMPHOCYTES # (AUTO) 1.2 10^3/uL (1.5-3.5); LYMPHOCYTES % (AUTO) 16.2 %; MEAN CORPUSCULAR HEMOGLOBIN 32.7 pg (27.0-31.0); MEAN PLATELET VOLUME 12.1 fL (7.4-11.4); MONOCYTES # (AUTO) 0.6 10^3/uL (0.0-1.0); NEUTROPHILS # (AUTO) 5.4 10^3/uL (1.5-6.6); NEUTROPHILS % (AUTO) 70.7 %; PLT - PLATELET COUNT 128 10^3/uL (130-450); RED BLOOD COUNT 3.92 10^6/uL (4.70-6.10); RED CELL DISTRIBUTION WIDTH 14.7 % (12.0-15.0); WHITE BLOOD COUNT 7.6 x10^3/uL (4.8-10.8)
[2020-09-07 09:22] LABS: CALCIUM 9.1 mg/dL (8.5-10.3); CREATININE 0.6 mg/dL (0.6-1.2); POTASSIUM 4.3 mmol/L (3.5-5.0)
[2020-09-07 09:31] LABS: INR 2.2 (0.8-1.2); PT - PROTHROMBIN TIME 23.2 secs (9.9-12.6)
--- NOTE | 2020-09-07 09:48 | CONSULTATION NOTE ---
Chief Complaint - Chief Complaint Chief Complaint: Left stump nonhealing wound/ulceration History of Present Illness - Admitted From Admitted From:: Home - History Obtained From Records Reviewed: EMR History obtained from: EMR Exam Limitations: Patient dementia - History of Present Illness HPI Comment/Other: 64-year-old male multiple medical core morbidities including COPD prior smoker continues with alcohol consumption who presents status post fall and left knee fracture including patella and tib-fib. Patient is notable for having sustained trauma to the left leg necessitating Symes amputation for which he is used a prosthetic in the interim. Patient with reported fall and left leg fracture. Historically has been able to ambulate with prosthetic however has contracture of the left lower extremity as per orthopedics. Hospitalist service has asked pending discharge to evaluate the patient's left distal stump ulceration. Thus general surgery consultation was called. He is on systemic anticoagulation and has been resumed for blood thinners pending discharge. History - Past Medical History Cardiovascular: reports: Congestive heart failure, Hypertension, High cholesterol Respiratory: reports: COPD, Emphysema, Sleep apnea Neuro: reports: CVA, Seizure disorder Endocrine/Autoimmune: reports: None GI: reports: None : reports: Benign prostate hypertrophy HEENT: reports: None Psych: reports: Anxiety Musculoskeletal: reports: Other Derm: reports: None MRSA Hx?: No Other Past Medical History: 2.5L O2 at baseline per the pt; pt had long BKA performed in 1985 and typically uses his prosthesis for all mobilty, occasionally requiring a manasa-walker - Past Surgical History Ortho: reports: Amputation HEENT: reports: Myringotomy (tubes) - Family & Social History Family History Comment/Other: Father from esophageal cancer. His mother in her 70s due to alcohol use. Living Situation: With spouse/s.o. Social History Notes: He lives at home with his . He quit smoking over 10 years ago. He previously smoked at least 20 years about a pack a day. Reports a remote history of alcohol abuse but no recent alcohol use. 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 - Substance History Use: Uses substance without health or social issues: NONE - POLST Patient has POLST: No POLST Status: Full Code (He and his have not discussed advanced directives in the past. Right now he states that he does want to be put on a ventilator if necessary and be resuscitated from a cardiac perspective.) Meds/Allgy - Home Medications Home Medications: Ambulatory Orders Medication Instructions Recorded Confirmed Aspirin 81 mg PO DAILY 06/04/18 09/04/20 Potassium Chloride 40 meq PO DAILY 06/04/18 09/03/20 Umeclidinium Brm/Vilanterol Tr 1 puffs INH DAILY 06/04/18 09/03/20 [Anoro Ellipta 62.5-25 Mcg INH] Warfarin [Coumadin] 5 mg PO DAILY 06/04/18 09/03/20 ALPRAZolam [Alprazolam] 0.5 mg PO QPM 06/05/18 09/03/20 Albuterol 2.5 mg INH Q6H PRN 06/05/18 09/04/20 Finasteride 5 mg PO DAILY 06/05/18 09/03/20 Hydrocodone/Acetaminophen 1 tab PO TID PRN 06/05/18 09/03/20 [Hydrocodone-Acetamin 5-325 mg] Tamsulosin [Flomax] 0.4 mg PO 1730 06/05/18 09/03/20 Atorvastatin Calcium 40 mg PO DAILY PM 02/09/20 09/03/20 Furosemide 60 mg ORAL DAILY 02/09/20 09/03/20 Ipratropium/Albuterol [Duoneb] 3 ml INH Q6H PRN 02/09/20 09/04/20 Levetiracetam [Keppra] 750 mg PO BID 02/09/20 09/03/20 Metoprolol Succinate 50 mg PO BID 02/09/20 09/03/20 lisinopriL [Zestril] 5 mg ORAL DAILY 02/09/20 09/03/20 - Allergies Allergies/Adverse Reactions: Allergies Allergy/AdvReac Type Severity Reaction Status Date / Time No Known Drug Allergies Allergy Verified 09/01/20 11:47 Review of Systems - Constitutional Constitutional: reports: Fatigue - Respiratory Respiratory: reports: SOB with exertion - Musculoskeletal Musculoskeletal: reports: Other (Left lower extremity distal stump tissue loss with pain) Exam - Vital Signs Vital Signs: Vital Signs x48h Temp Pulse Pulse Resp BP BP Pulse Ox 09/07/20 09:20 63 16 09/07/20 08:40 36.4 C L 67 18 119/72 94 09/07/20 05:22 70 19 119/68 94 - Physical Exam General Appearance: positive: No acute distress, Alert Eyes Bilateral: positive: Normal inspection, PERRL, EOMI ENT: positive: ENT inspection nml Neck: positive: Nml inspection Respiratory: positive: Chest non-tender Cardiovascular: positive: Regular rate & rhythm Abdomen: positive: Non-tender. negative: Tenderness, Guarding, Rebound Skin: positive: Color nml Extremities: positive: Full ROM, Other (Right lower extremity with no sensorimotor deficits. Left lower extremity status post Symes amputation with distal pad ulceration and associated necrotic tissue, foul-smelling, with exposed bone.) Conclusion and Plan - Lab Results Laboratory Results 09/07/20 09:07: PT 23.2 H, INR 2.2 H 09/07/20 09:07: Sodium 137, Potassium 4.3, Chloride 104, Carbon Dioxide 24, Anion Gap 9.0, BUN 26 H, Creatinine 0.6, Estimated GFR (MDRD) 135, Glucose 130 H, Calcium 9.1 09/07/20 09:07: WBC 7.6, RBC 3.92 L, Hgb 12.8 L, Hct 40.0 L, MCV 102.0 H, MCH 32.7 H, MCHC 32.0, RDW 14.7, Plt Count 128 L, MPV 12.1 H, Neut # (Auto) 5.4, Lymph # (Auto) 1.2 L, [place] # (Auto) 0.6, Eos # (Auto) 0.3, Baso # (Auto) 0.0, Absolute Nucleated RBC 0.00, Nucleated RBC % 0.0 09/06/20 05:25: PT 28.0 H, INR 2.7 H - Diagnostic Imaging Results Diagnostic Imaging Results Comments: X-ray 2 view of the left knee impression plain radiography: 1. Comminuted patella and mildly displaced proximal fibular fracture. 2. Possible nondisplaced fracture of the proximal tibia. - Diagnosis Diagnosis: 1. Left lower extremity distal stump ulceration. 2. History of traumatic injury to the left lower extremity status post Symes amputation. 3. Acute patellar as well as tib-fib fracture status post fall. 4. Dementia amongst other medical comorbidities - Plan Plan: 1. Bowel rest/NPO overnight, fluid resuscitation, IV antibiotics perioperative. 2. Preoperative chest x-ray, preoperative EKG, labs evaluated. 3. Planned local wound debridement to left distal stump. Discussed with Dr. Lindquist who will reevaluate the patient. After extensive discussion he believe s that partial resection of the left fibula would assist with closure of this defect. We will send specimen for culture to assure no osteomyelitis that would necessitate antibiotics. 4. Postoperative care with wound evaluation. 5. Continue to hold Coumadin and reverse INR.
--- NOTE | 2020-09-07 11:52 | PROVIDER PROGRESS NOTE ---
Subjective - General Admit Date: 09/04/20 - Review of Systems All Other Systems: positive: Reviewed and negative - Other Other Information/Narrative: This is a 64-year-old man who has been in the hospital for approximately 2 weeks. 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 He fell from bed about 2 weeks ago and sustained a fracture of patella and proximal fibula. He has been a prosthetic user and ambulates with a walking aid and his prosthesis. He is unaware of how long he has had breakdown over the stump. He is a poor historian. He was living with his who just does not have the resources to provide the necessary care for him. He has had a previous fracture of his left femur shaft that required intramedullary nailing in the past. Does not seem to report pain but does have a stiff left knee. He cannot recall if the knee was stiff prior to the fall from the bed 2 weeks ago. He is alert, not oriented, demonstrates poor mentation when asking him questions. He appears older than stated age. His exam shows a least a 35 degree flexion contracture of the left knee. I forcibly try to passively extend the left knee as much as possible and the best I could do was approximately 35 degrees. The patellar fracture appears to be intact by exam. I do not detect a palpable defect in the patella. His quadriceps tendon is intact and his quadriceps does fire doing a quadriceps setting exercises. His Syme amputation shows a full-thickness ulcer down to the lateral malleolar area. There is no gross infection but there is necrotic tissue over the ulcer base which measures at least 2 cm. His circulation appears intact to the Syme amputation. His stump is otherwise well-healed.There is no sign of gross infection to the Syme amputation or draining sinus. His x-rays have been reviewed there are not any current x-rays of the patellar fracture since injury. He also had a proximal fibular fracture with minimal or no displacement. His patellar fracture was intact. His Syme amputation was reviewed and show flares to the medial and lateral aspects of the amputation. There is no definite sign of osteomyelitis by x-ray. Impression #1 he has a flexion contracture of his left knee. I have ordered an x-ray of the left knee to evaluate the patellar fracture 2. He has a ulceration over his Syme amputation down to bone. This is going to be debrided and I may help guide Dr. Juarez as well. Part of the lateral malleolus may need to be removed to allow a better wound for either primary closure or wound VAC. His ability to ambulate will probably be minimal unless his knee flexion contracture has improved. I will talk to physical therapy who have seen in the see if they can work on passive stretching of the knee flexion contracture on the left side. Objective - Patient Data Vital Signs: Vital Signs x48h Temp Pulse Pulse Resp BP BP Pulse Ox 09/07/20 09:20 63 16 09/07/20 08:40 36.4 C L 67 18 119/72 94 09/07/20 05:22 70 19 119/68 94 Intake & Output: Intake and Output Totals x24h 09/05/20 09/06/20 09/07/20 23:59 23:59 23:59 Intake Total 1110 360 480 Output Total 500 450 825 Balance 610 -90 -345 - Lab Results Lab Results: 09/07/20 09:07 09/07/20 09:07 Other Lab Results: Lab Results x24hrs 09/07/20 09/07/20 09/07/20 Range/Units 09:07 09:07 09:07 WBC 7.6 (4.8-10.8) x10^3/uL RBC 3.92 L (4.70-6.10) 10^6/uL Hgb 12.8 L (14.0-18.0) g/dL Hct 40.0 L (42.0-52.0) % MCV 102.0 H (80.0-94.0) fL MCH 32.7 H (27.0-31.0) pg MCHC 32.0 (32.0-36.0) g/dL RDW 14.7 (12.0-15.0) % Plt Count 128 L (130-450) 10^3/uL MPV 12.1 H (7.4-11.4) fL Neut # (Auto) 5.4 (1.5-6.6) 10^3/uL Lymph # (Auto) 1.2 L (1.5-3.5) 10^3/uL [place] # (Auto) 0.6 (0.0-1.0) 10^3/uL Eos # (Auto) 0.3 (0.0-0.7) 10^3/uL Baso # (Auto) 0.0 (0.0-0.1) 10^3/uL Absolute Nucleated RBC 0.00 x10^3/uL Nucleated RBC % 0.0 /100WBC PT 23.2 H (9.9-12.6) secs INR 2.2 H (0.8-1.2) Sodium 137 (135-145) mmol/L Potassium 4.3 (3.5-5.0) mmol/L Chloride 104 (101-111) mmol/L Carbon Dioxide 24 (21-32) mmol/L Anion Gap 9.0 (6-13) BUN 26 H (6-20) mg/dL Creatinine 0.6 (0.6-1.2) mg/dL Estimated GFR (MDRD) 135 (>89) Glucose 130 H (70-100) mg/dL Calcium 9.1 (8.5-10.3) mg/dL - Current Medications Current Medications: Current Medications Generic Name Dose Route Start Last Admin Trade Name Northq PRN Reason Stop Dose Admin Acetaminophen 1,000 mg 09/04/20 22:00 09/07/20 05:26 Acetaminophen 500 Mg Tablet PO 1,000 mg TID RAUL Administration Alprazolam 0.5 mg 09/04/20 21:00 09/06/20 21:08 Alprazolam 0.25 Mg Tablet PO 0.5 mg QPM RAUL Administration Aspirin 81 mg 09/03/20 09:00 09/07/20 08:45 Aspirin Chew 81 Mg Tablet PO 81 mg DAILY RAUL Administration Atorvastatin Calcium 40 mg 09/04/20 21:00 09/06/20 21:08 Atorvastatin 40 Mg Tablet PO 40 mg QPM RAUL Administration Finasteride 5 mg 09/03/20 09:00 09/07/20 08:45 Finasteride 5 Mg Tablet PO 5 mg DAILY RAUL Administration Furosemide 40 mg 09/06/20 09:00 09/07/20 08:44 Furosemide 20 Mg Tablet PO 40 mg DAILY RAUL Administration Levetiracetam 750 mg 09/03/20 09:00 09/07/20 08:44 Levetiracetam 250 Mg Tablet PO 750 mg BID RAUL Administration Lisinopril 2.5 mg 09/06/20 09:00 09/07/20 08:43 Lisinopril 5 Mg Tablet PO 2.5 mg DAILY RAUL Administration Metoprolol Succinate 25 mg 09/03/20 09:00 09/07/20 08:43 Metoprolol Succinate 25 Mg Tablet PO 25 mg BID RAUL Administration Oxycodone HCl 5 mg 09/04/20 18:27 09/07/20 05:27 Oxycodone 5 Mg Tablet PO 5 mg Q4HR PRN Administration PAIN Potassium Chloride 40 meq 09/03/20 09:00 09/07/20 08:45 Potassium Chloride 20 Meq Tablet PO 40 meq DAILY RAUL Administration Sodium Chloride 10 ml 09/03/20 14:34 09/04/20 06:04 Sodium Chloride Flush 0.9% 10 Ml Syringe IVP 10 ml PRN PRN Administration NEEDED PER PROVIDER ORDERS Sodium Chloride 10 ml 09/03/20 17:00 09/07/20 08:45 Sodium Chloride Flush 0.9% 10 Ml Syringe IVP 10 ml 0100,0900,1700 RAUL Administration Warfarin Sodium 5 mg 09/05/20 14:00 09/06/20 13:53 Warfarin 5 Mg Tablet PO 5 mg QDWARFARIN RAUL Administration
--- NOTE | 2020-09-07 13:11 | XRAY Report ---
PROCEDURE: Knee 2 View LT INDICATIONS: patella fracture left knee TECHNIQUE: 2 views of the left knee(s) were acquired. COMPARISON: None. FINDINGS: Bones: Comminuted fracture of the patella. Mild displaced fracture of the proximal fibula. Cortical i rregularity noted in the metaphysis of the proximal tibia which may represent nondisplaced/impacted f racture. Femur intramedullary oscar with 2 distal interlocking screws noted. Soft tissues: No joint effusion. No suspicious soft tissue calcifications. IMPRESSION: 1. Comminuted patella and mildly displaced proximal fibula fractures. 2. Possible nondisplaced fracture of the proximal tibia. Reviewed by: Ashlie Costa MD, PhD on 09/07/2020 12:10 PM [facility] Approved by: Ashlie Costa MD, PhD on 09/07/2020 12:10 PM [facility] Station ID: [id number]
[2020-09-07] MEDS: SODIUM CHLORIDE 0.9% 1,000 ML IV SCH ×2 (13:46→22:55)
--- NOTE | 2020-09-07 15:04 | PROVIDER PROGRESS NOTE ---
Assessment/Plan - Problem List (1) Fibula fracture Qualifiers: Encounter type: initial encounter Fibula location: proximal Fracture type: closed Fracture morphology: unspecified fracture morphology Laterality : left Qualified Code(s): S82.832A - Other fracture of upper and lower end of left fibula, initial encounter for closed fracture Assessment/Plan: Consult with orthopedic surgeon, X-ray was ordered by orthopedics and will follow up, Continue PT and OT. (2) Pressure ulcer of ankle Impression: Consult with surgeon for the wound care, Plan tomorrow plan to do surgery for patient. Patient is INR of 2.2, will hold the Coumadin. order EKG. order ECHO, pt has previous ECHO shown normal EF, and right side heart abnormal pressure. CECI criteria show 6.6% Estimated rate of Myocardial ischemia, pulmonary edema, ventricular fibrillation, cardiac arrest or complete cardiac block (3) Pressure ulcer of left hip, stage 1 Impression: Continue with frequent turns and dressing changes, Continue nurse care (4) Atrial fibrillation Impression: Heart rate controlled. hold home Coumadin today for Tomorrow surgery. Continue metoprolol. Continue INR checks (5) History of stroke with current residual effects Impression: Stable. hold Coumadin and continue statin. (6) History of seizure disorder Impression: Stable. Continue Keppra. - Current Meds Current Meds: Current Medications Generic Name Dose Route Start Last Admin Trade Name Northq PRN Reason Stop Dose Admin Acetaminophen 1,000 mg 09/04/20 22:00 09/07/20 13:46 Acetaminophen 500 Mg Tablet PO 1,000 mg TID RAUL Administration Alprazolam 0.5 mg 09/04/20 21:00 09/06/20 21:08 Alprazolam 0.25 Mg Tablet PO 0.5 mg QPM RAUL Administration Aspirin 81 mg 09/03/20 09:00 09/07/20 08:45 Aspirin Chew 81 Mg Tablet PO 81 mg DAILY RAUL Administration Atorvastatin Calcium 40 mg 09/04/20 21:00 09/06/20 21:08 Atorvastatin 40 Mg Tablet PO 40 mg QPM RAUL Administration Finasteride 5 mg 09/03/20 09:00 09/07/20 08:45 Finasteride 5 Mg Tablet PO 5 mg DAILY RAUL Administration Furosemide 40 mg 09/06/20 09:00 09/07/20 08:44 Furosemide 20 Mg Tablet PO 40 mg DAILY RAUL Administration Sodium Chloride 1,000 mls @ 100 mls/hr 09/07/20 13:00 09/07/20 13:46 Normal Saline 0.9% IV 09/08/20 08:59 100 mls/hr .Q10H RAUL Administration Levetiracetam 750 mg 09/03/20 09:00 09/07/20 08:44 Levetiracetam 250 Mg Tablet PO 750 mg BID RAUL Administration Metoprolol Succinate 25 mg 09/03/20 09:00 09/07/20 08:43 Metoprolol Succinate 25 Mg Tablet PO 25 mg BID RAUL Administration Oxycodone HCl 5 mg 09/04/20 18:27 09/07/20 13:46 Oxycodone 5 Mg Tablet PO 5 mg Q4HR PRN Administration PAIN Potassium Chloride 40 meq 09/03/20 09:00 09/07/20 08:45 Potassium Chloride 20 Meq Tablet PO 40 meq DAILY RAUL Administration Sodium Chloride 10 ml 09/03/20 14:34 09/04/20 06:04 Sodium Chloride Flush 0.9% 10 Ml Syringe IVP 10 ml PRN PRN Administration NEEDED PER PROVIDER ORDERS Sodium Chloride 10 ml 09/03/20 17:00 09/07/20 08:45 Sodium Chloride Flush 0.9% 10 Ml Syringe IVP 10 ml 0100,0900,1700 RAUL Administration - Lab Result Fish Bone Diagrams: 09/07/20 09:07 09/07/20 09:07 - Additional Planning My Orders: My Active Orders 09/07/20 General Surgery Consult [CONS] Routine Evaluate and Treat OT [OT] Routine 09/07/20 13:00 Sodium Chloride 0.9% [Normal Saline 0.9%] 1,000 ml IV 100 mls/hr 09/08/20 00:01 NPO except Meds at Midnight [DIET] 09/08/20 05:00 BMP - BASIC METABOLIC PANEL [CHEM] DAILYLAB CBC - COMP BLD CT W/AUTO DIFF [HEME] DAILYLAB PT WITH INR [COAG] DAILYLAB 09/09/20 05:00 BMP - BASIC METABOLIC PANEL [CHEM] DAILYLAB CBC - COMP BLD CT W/AUTO DIFF [HEME] DAILYLAB PT WITH INR [COAG] DAILYLAB 09/10/20 05:00 BMP - BASIC METABOLIC PANEL [CHEM] DAILYLAB CBC - COMP BLD CT W/AUTO DIFF [HEME] DAILYLAB PT WITH INR [COAG] DAILYLAB 09/11/20 05:00 BMP - BASIC METABOLIC PANEL [CHEM] DAILYLAB CBC - COMP BLD CT W/AUTO DIFF [HEME] DAILYLAB PT WITH INR [COAG] DAILYLAB 09/12/20 05:00 BMP - BASIC METABOLIC PANEL [CHEM] DAILYLAB CBC - COMP BLD CT W/AUTO DIFF [HEME] DAILYLAB PT WITH INR [COAG] DAILYLAB Subjective - Subjective Patient Reports: Feeling Better Objective Vital Signs: Vital Signs - 24 hr 09/06/20 09/06/20 09/07/20 15:49 21:05 01:00 Temperature 36.2 C L 37.2 C 36.4 C L Heart Rate Heart Rate [ 97 70 Brachial] Heart Rate [ 64 Radial] Respiratory 18 18 18 Rate Blood Pressure 106/47 L 112/67 [Left Brachial artery] Blood Pressure 93/56 L [Right Brachial artery] O2 Saturation 100 98 96 09/07/20 09/07/20 09/07/20 01:08 05:22 08:40 Temperature 36.4 C L Heart Rate Heart Rate [ 71 70 67 Brachial] Heart Rate [ Radial] Respiratory 19 18 Rate Blood Pressure 119/68 [Left Brachial artery] Blood Pressure 105/71 119/72 [Right Brachial artery] O2 Saturation 94 94 09/07/20 09/07/20 09:20 11:34 Temperature 36.4 C L Heart Rate 63 Heart Rate [ 77 Brachial] Heart Rate [ Radial] Respiratory 16 18 Rate Blood Pressure 99/54 L [Left Brachial artery] Blood Pressure [Right Brachial artery] O2 Saturation 97 Oxygen O2 Source Nasal cannula I&O (Last 24 Hrs): Intake and Output Totals x24h 09/05/20 09/06/20 09/07/20 23:59 23:59 23:59 Intake Total 4714 718 5152 Output Total 393 956 1296 Balance 610 -90 50 General: Alert, Oriented x3, Cooperative, No acute distress HEENT: Atraumatic, PERRLA Neck: Supple Lymphatic: no adenopathy Neuro: Alert, Non Focal, Oriented Times 3 Cardiovascular: Regular rate, Normal S1, Normal S2 Respiratory: Chest non-tender, No respiratory distress Abdomen: Normal bowel sounds, Soft, No tenderness Comments/Notes: left lower extremity at ankle location with stage3/4 ulcer - Results Results: Laboratory Results WBC 7.6 x10^3/uL (4.8-10.8) 09/07/20 09:07 RBC 3.92 10^6/uL (4.70-6.10) L 09/07/20 09:07 Hgb 12.8 g/dL (14.0-18.0) L 09/07/20 09:07 Hct 40.0 % (42.0-52.0) L 09/07/20 09:07 MCV 102.0 fL (80.0-94.0) H 09/07/20 09:07 MCH 32.7 pg (27.0-31.0) H 09/07/20 09:07 MCHC 32.0 g/dL (32.0-36.0) 09/07/20 09:07 RDW 14.7 % (12.0-15.0) 09/07/20 09:07 Plt Count 128 10^3/uL (130-450) L 09/07/20 09:07 MPV 12.1 fL (7.4-11.4) H 09/07/20 09:07 Neut # (Auto) 5.4 10^3/uL (1.5-6.6) 09/07/20 09:07 Lymph # (Auto) 1.2 10^3/uL (1.5-3.5) L 09/07/20 09:07 [place] # (Auto) 0.6 10^3/uL (0.0-1.0) 09/07/20 09:07 Eos # (Auto) 0.3 10^3/uL (0.0-0.7) 09/07/20 09:07 Baso # (Auto) 0.0 10^3/uL (0.0-0.1) 09/07/20 09:07 Absolute Nucleated RBC 0.00 x10^3/uL 09/07/20 09:07 Nucleated RBC % 0.0 /100WBC 09/07/20 09:07 PT 23.2 secs (9.9-12.6) H 09/07/20 09:07 INR 2.2 (0.8-1.2) H 09/07/20 09:07 Sodium 137 mmol/L (135-145) 09/07/20 09:07 Potassium 4.3 mmol/L (3.5-5.0) 09/07/20 09:07 Chloride 104 mmol/L (101-111) 09/07/20 09:07 Carbon Dioxide 24 mmol/L (21-32) 09/07/20 09:07 Anion Gap 9.0 (6-13) 09/07/20 09:07 BUN 26 mg/dL (6-20) H 09/07/20 09:07 Creatinine 0.6 mg/dL (0.6-1.2) 09/07/20 09:07 Estimated GFR (MDRD) 135 (>89) 09/07/20 09:07 Glucose 130 mg/dL (70-100) H 09/07/20 09:07 Calcium 9.1 mg/dL (8.5-10.3) 09/07/20 09:07 Total Bilirubin 2.4 mg/dL (0.2-1.0) H 09/01/20 16:30 AST 52 IU/L (10-42) H 09/01/20 16:30 ALT 55 IU/L (10-60) 09/01/20 16:30 Alkaline Phosphatase 100 IU/L (42-121) 09/01/20 16:30 Total Protein 7.5 g/dL (6.7-8.2) 09/01/20 16:30 Albumin 3.5 g/dL (3.2-5.5) 09/01/20 16:30 Globulin 4.0 g/dL (2.1-4.2) 09/01/20 16:30 Albumin/Globulin Ratio 0.9 (1.0-2.2) L 09/01/20 16:30 Lipase 35 U/L (22-51) 09/01/20 16:30 Urine Color YELLOW 09/01/20 23:32 Urine Clarity CLEAR (CLEAR) 09/01/20 23:32 Urine pH 5.5 PH (5.0-7.5) 09/01/20 23:32 Ur Specific [place] 1.025 (1.002-1.030) 09/01/20 23:32 Urine Protein NEGATIVE mg/dL (NEGATIVE) 09/01/20 23:32 Urine Glucose (UA) NEGATIVE mg/dL (NEGATIVE) 09/01/20 23:32 Urine Ketones NEGATIVE mg/dL (NEGATIVE) 09/01/20 23:32 Urine Occult Blood TRACE-LYSE (NEGATIVE) 09/01/20 23:32 Urine Nitrite NEGATIVE (NEGATIVE) 09/01/20 23:32 Urine Bilirubin NEGATIVE (NEGATIVE) 09/01/20 23:32 Urine Urobilinogen 1 (NORMAL) E.U./dL (NORMAL) 09/01/20 23:32 Ur Leukocyte Esterase NEGATIVE (NEGATIVE) 09/01/20 23:32 Ur Microscopic Review NOT INDICATED 09/01/20 23:32 Urine Culture Comments NOT INDICATED 09/01/20 23:32 Nasal Adenovirus (PCR) NOT DETECTED 09/03/20 18:10 Nasal B. parapertussis DNA (PCR) NOT DETECTED 09/03/20 18:10 Nasal Coronavir 229E PCR NOT DETECTED 09/03/20 18:10 Nasal Coronavir HKU1 PCR NOT DETECTED 09/03/20 18:10 Nasal Coronavir NL63 PCR NOT DETECTED 09/03/20 18:10 Nasal Coronavir OC43 PCR NOT DETECTED 09/03/20 18:10 Nasal Enterovir/Rhinovir PCR NOT DETECTED 09/03/20 18:10 Nasal Influenza B PCR NOT DETECTED 09/03/20 18:10 Nasal Influenza A PCR NOT DETECTED 09/03/20 18:10 Nasal Parainfluen 1 PCR NOT DETECTED 09/03/20 18:10 Nasal Parainfluen 2 PCR NOT DETECTED 09/03/20 18:10 Nasal Parainfluen 3 PCR NOT DETECTED 09/03/20 18:10 Nasal Parainfluen 4 PCR NOT DETECTED 09/03/20 18:10 Nasal RSV (PCR) NOT DETECTED 09/03/20 18:10 Nasal B.pertussis DNA PCR NOT DETECTED 09/03/20 18:10 Nasal C.pneumoniae (PCR) NOT DETECTED 09/03/20 18:10 [place] Human Metapneumo PCR NOT DETECTED 09/03/20 18:10 Nasal M.pneumoniae (PCR) NOT DETECTED 09/03/20 18:10 Nasal SARS-CoV-2 (PCR) NOT DETECTED 09/03/20 18:10 ABX Reporting Has patient been on IV antibiotics over the past 48 hours?: No Current Medications - Current Medications Current Medications: Active Medications Acetaminophen (Acetaminophen 500 Mg Tablet) 1,000 mg PO TID RAUL Last Admin: 09/07/20 13:46 Dose: 1,000 mg Documented by: Albuterol/Ipratropium (Ipratropium/Albuterol 3 Ml Neb) 3 ml INH Q4HR PRN PRN Reason: Wheezing Alprazolam (Alprazolam 0.25 Mg Tablet) 0.5 mg PO QPM [facility] Last Admin: 09/06/20 21:08 Dose: 0.5 mg Documented by: Aspirin (Aspirin Chew 81 Mg Tablet) 81 mg PO DAILY [facility] Last Admin: 09/07/20 08:45 Dose: 81 mg Documented by: Atorvastatin Calcium (Atorvastatin 40 Mg Tablet) 40 mg PO QPM [facility] Last Admin: 09/06/20 21:08 Dose: 40 mg Documented by: Finasteride (Finasteride 5 Mg Tablet) 5 mg PO DAILY [facility] Last Admin: 09/07/20 08:45 Dose: 5 mg Documented by: Furosemide (Furosemide 20 Mg Tablet) 40 mg PO DAILY [facility] Last Admin: 09/07/20 08:44 Dose: 40 mg Documented by: Sodium Chloride (Normal Saline 0.9%) 1,000 mls @ 100 mls/hr IV .Q10H [facility] Stop: 09/08/20 08:59 Last Admin: 09/07/20 13:46 Dose: 100 mls/hr Documented by: Levetiracetam (Levetiracetam 250 Mg Tablet) 750 mg PO BID [facility] Last Admin: 09/07/20 08:44 Dose: 750 mg Documented by: Metoprolol Succinate (Metoprolol Succinate 25 Mg Tablet) 25 mg PO BID [facility] Last Admin: 09/07/20 08:43 Dose: 25 mg Documented by: Oxycodone HCl (Oxycodone 5 Mg Tablet) 5 mg PO Q4HR PRN PRN Reason: PAIN Last Admin: 09/07/20 13:46 Dose: 5 mg Documented by: Potassium Chloride (Potassium Chloride 20 Meq Tablet) 40 meq PO DAILY [facility] Last Admin: 09/07/20 08:45 Dose: 40 meq Documented by: Sodium Chloride (Sodium Chloride Flush 0.9% 10 Ml Syringe) 10 ml IVP PRN PRN PRN Reason: NEEDED PER PROVIDER ORDERS Last Admin: 09/04/20 06:04 Dose: 10 ml Documented by: Sodium Chloride (Sodium Chloride Flush 0.9% 10 Ml Syringe) 10 ml IVP 0100,0900,1700 [facility] Last Admin: 09/07/20 08:45 Dose: 10 ml Documented by: Aspirin 81 mg PO DAILY 06/04/18 Potassium Chloride 40 meq PO DAILY 06/04/18 Umeclidinium Brm/Vilanterol Tr [Anoro Ellipta 62.5-25 Mcg INH] 1 puffs INH DAILY 06/04/18 Warfarin [Coumadin] 5 mg PO DAILY 06/04/18 ALPRAZolam [Alprazolam] 0.5 mg PO QPM 06/05/18 Albuterol 2.5 mg INH Q6H PRN 06/05/18 Finasteride 5 mg PO DAILY 06/05/18 Hydrocodone/Acetaminophen [Hydrocodone-Acetamin 5-325 mg] 1 tab PO TID PRN 06/05/18 Tamsulosin [Flomax] 0.4 mg PO 1730 06/05/18 Atorvastatin Calcium 40 mg PO DAILY PM 02/09/20 Furosemide 60 mg ORAL DAILY 02/09/20 Ipratropium/Albuterol [Duoneb] 3 ml INH Q6H PRN 02/09/20 Levetiracetam [Keppra] 750 mg PO BID 02/09/20 Metoprolol Succinate 50 mg PO BID 02/09/20 lisinopriL [Zestril] 5 mg ORAL DAILY 02/09/20
[2020-09-07] MEDS: ALPRAZolam 0.25 MG TABLET PO SCH (22:15)
[2020-09-07] MEDS: ATORVASTATIN 40 MG TABLET PO SCH (22:16)
[2020-09-08] MEDS: oxyCODONE 5 MG TABLET PO PRN ×2 (01:21→05:42)
[2020-09-08] MEDS: SODIUM CHLORIDE FLUSH 0.9% 10 ML SYRINGE IVP SCH ×3 (01:28→19:11)
[2020-09-08] MEDS: ACETAMINOPHEN 500 MG TABLET PO SCH ×3 (05:42→21:18)
[2020-09-08 05:45] LABS: BASOPHILS # (AUTO) 0.1 10^3/uL (0.0-0.1); BASOPHILS % (AUTO) 0.6 %; EOSINOPHILS # (AUTO) 0.2 10^3/uL (0.0-0.7); EOSINOPHILS % (AUTO) 1.8 %; HCT - HEMATOCRIT 38.3 % (42.0-52.0); HGB - HEMOGLOBIN 12.4 g/dL (14.0-18.0); LYMPHOCYTES # (AUTO) 0.8 10^3/uL (1.5-3.5); LYMPHOCYTES % (AUTO) 10.1 %; MEAN CORPUSCULAR HGB CONC 32.4 g/dL (32.0-36.0); MEAN CORPUSCULAR VOLUME 101.9 fL (80.0-94.0); MEAN PLATELET VOLUME 12.4 fL (7.4-11.4); MONOCYTES # (AUTO) 0.7 10^3/uL (0.0-1.0); MONOCYTES % (AUTO) 8.8 %; NEUTROPHILS # (AUTO) 6.4 10^3/uL (1.5-6.6); NEUTROPHILS % (AUTO) 78.2 %; PLT - PLATELET COUNT 144 10^3/uL (130-450); RED BLOOD COUNT 3.76 10^6/uL (4.70-6.10); RED CELL DISTRIBUTION WIDTH 14.1 % (12.0-15.0); WHITE BLOOD COUNT 8.2 x10^3/uL (4.8-10.8)
[2020-09-08 05:51] LABS: CALCIUM 8.4 mg/dL (8.5-10.3); CREATININE 0.6 mg/dL (0.6-1.2); POTASSIUM 3.9 mmol/L (3.5-5.0)
[2020-09-08 05:52] LABS: INR 2.1 (0.8-1.2); PT - PROTHROMBIN TIME 22.3 secs (9.9-12.6)
[2020-09-08] MEDS ORDERED: PHYTONADIONE 10 MG/ML AMP IVP STA (08:12)
--- NOTE | 2020-09-08 08:51 | XRAY Report ---
PROCEDURE: Chest 1 View X-Ray INDICATIONS: pre operative TECHNIQUE: One view of the chest was acquired. COMPARISON: 02/09/2020 FINDINGS: Surgical changes and devices: None. Lungs and pleura: No pleural effusions or pneumothorax. Lungs are clear. Mediastinum: Mediastinal contours appear normal. Heart size is enlarged. Bones and chest wall: No suspicious bony lesions. Overlying soft tissues appear unremarkable. IMPRESSION: No acute cardiopulmonary process. Reviewed by: Erick Soria MD on 09/08/2020 8:49 AM [facility] Approved by: Erick Soria MD on 09/08/2020 8:49 AM [facility] Station ID: [id number]
[2020-09-08] MEDS: ASPIRIN CHEW 81 MG TABLET PO SCH (08:53)
[2020-09-08] MEDS: levETIRAcetam 250 MG TABLET PO SCH ×2 (08:53→21:18)
[2020-09-08] MEDS: FUROSEMIDE 20 MG TABLET PO SCH (08:54)
[2020-09-08] MEDS: FINASTERIDE 5 MG TABLET PO SCH (08:54)
[2020-09-08] MEDS: METOPROLOL SUCCINATE 25 MG TABLET PO SCH ×2 (08:54→21:18)
[2020-09-08] MEDS: POTASSIUM CHLORIDE 20 MEQ TABLET PO SCH (08:54)
[2020-09-08] MEDS: polyethylene glycoL 3350 17 GM PACKET PO SCH (08:55)
--- NOTE | 2020-09-08 09:05 | ANESTHESIA ---
Pre-Anesthesia VS, & Labs - Diagnosis Diagnosis 1. Left lower extremity distal stump ulceration 2. History of traumatic injury to the left lower extremity status post Symes amputation 3. Acute patellar as well as tib-fib fracture status post fall 4. Dementia amongst other medical comorbidities - Procedure I&D left lower leg, wound vac placement Vital Signs: Temp Pulse Resp BP Pulse Ox 36.5 C 74 18 109/70 97 09/08/20 08:19 09/08/20 08:30 09/08/20 08:30 09/08/20 08:19 09/08/20 08:19 Height: 5 ft 7 in Weight (kg): 77.5 kg Body Mass Index: 26.7 BMI Classification: Overweight - NPO >8 hours - Lab Results Current Lab Results: Laboratory Tests 09/08/20 05:08: PT 22.3 H, INR 2.1 H 09/08/20 05:08: Sodium 133 L, Potassium 3.9, Chloride 103, Carbon Dioxide 23, Anion Gap 7.0, BUN 18, Creatinine 0.6, Estimated GFR (MDRD) 135, Glucose 108 H, Calcium 8.4 L 09/08/20 05:08: WBC 8.2, RBC 3.76 L, Hgb 12.4 L, Hct 38.3 L, MCV 101.9 H, MCH 33.0 H, MCHC 32.4, RDW 14.1, Plt Count 144, MPV 12.4 H, Neut # (Auto) 6.4, Lymph # (Auto) 0.8 L, Real # (Auto) 0.7, Eos # (Auto) 0.2, Baso # (Auto) 0.1, Absolute Nucleated RBC 0.00, Nucleated RBC % 0.0 09/07/20 09:07: PT 23.2 H, INR 2.2 H 09/07/20 09:07: Sodium 137, Potassium 4.3, Chloride 104, Carbon Dioxide 24, Anion Gap 9.0, BUN 26 H, Creatinine 0.6, Estimated GFR (MDRD) 135, Glucose 130 H , Calcium 9.1 09/07/20 09:07: WBC 7.6, RBC 3.92 L, Hgb 12.8 L, Hct 40.0 L, MCV 102.0 H, MCH 32.7 H, MCHC 32.0, RDW 14.7, Plt Count 128 L, MPV 12.1 H, Neut # (Auto) 5.4, Lymph # (Auto) 1.2 L, Real # (Auto) 0.6, Eos # (Auto) 0.3, Baso # (Auto) 0.0, Absolute Nucleated RBC 0.00, Nucleated RBC % 0.0 09/06/20 05:25: PT 28.0 H, INR 2.7 H 09/05/20 05:00: PT 38.4 H, INR 3.8 H 09/04/20 05:19: PT 45.8 H, INR 4.5 H* 09/01/20 16:30: PT 31.3 H, INR 3.0 H 09/01/20 16:30: Sodium 140, Potassium 4.7, Chloride 104, Carbon Dioxide 25, Anion Gap 11.0, BUN 38 H, Creatinine 0.9, Estimated GFR (MDRD) 85 L, Glucose 111 H, Calcium 9.6, Total Bilirubin 2.4 H, AST 52 H, ALT 55, Alkaline Phosphatase 100, Total Protein 7.5, Albumin 3.5, Globulin 4.0, Albumin/Globulin Ratio 0.9 L, Lipase 35 09/01/20 16:30: WBC 9.7, RBC 4.73, Hgb 15.7, Hct 48.4, MCV 102.3 H, MCH 33.2 H, MCHC 32.4, RDW 14.6, Plt Count 181, MPV 12.3 H, Neut # (Auto) 8.1 H, Lymph # (Auto) 0.8 L, Real # (Auto) 0.6, Eos # (Auto) 0.1, Baso # (Auto) 0.1, Absolute Nucleated RBC 0.00, Nucleated RBC % 0.0 Lab results reviewed: Yes Fish Bones: 09/08/20 05:08 09/08/20 05:08 Home Medications and Allergies Active Medications Acetaminophen (Acetaminophen 500 Mg Tablet) 1,000 mg PO TID [facility] Last Admin: 09/08/20 05:42 Dose: 1,000 mg Documented by: Albuterol/Ipratropium (Ipratropium/Albuterol 3 Ml Neb) 3 ml INH Q4HR PRN PRN Reason: Wheezing Alprazolam (Alprazolam 0.25 Mg Tablet) 0.5 mg PO QPM RAUL Last Admin: 09/07/20 22:15 Dose: 0.5 mg Documented by: Aspirin (Aspirin Chew 81 Mg Tablet) 81 mg PO DAILY [facility] Last Admin: 09/08/20 08:53 Dose: 81 mg Documented by: Atorvastatin Calcium (Atorvastatin 40 Mg Tablet) 40 mg PO QPM [facility] Last Admin: 09/07/20 22:16 Dose: 40 mg Documented by: Finasteride (Finasteride 5 Mg Tablet) 5 mg PO DAILY [facility] Last Admin: 09/08/20 08:54 Dose: 5 mg Documented by: Furosemide (Furosemide 20 Mg Tablet) 40 mg PO DAILY [facility] Last Admin: 09/08/20 08:54 Dose: 40 mg Documented by: Levetiracetam (Levetiracetam 250 Mg Tablet) 750 mg PO BID [facility] Last Admin: 09/08/20 08:53 Dose: 750 mg Documented by: Metoprolol Succinate (Metoprolol Succinate 25 Mg Tablet) 25 mg PO BID [facility] Last Admin: 09/08/20 08:54 Dose: 25 mg Documented by: Oxycodone HCl (Oxycodone 5 Mg Tablet) 5 mg PO Q4HR PRN PRN Reason: PAIN Last Admin: 09/08/20 05:42 Dose: 5 mg Documented by: Phytonadione (Phytonadione 10 Mg/Ml Amp) 5 mg IVP ONCE STA Stop: 09/08/20 08:13 Polyethylene Glycol (Polyethylene Glycol 3350 17 Gm Packet) 17 gm PO DAILY [facility] Last Admin: 09/08/20 08:55 Dose: Not Given Documented by: Potassium Chloride (Potassium Chloride 20 Meq Tablet) 40 meq PO DAILY [facility] Last Admin: 09/08/20 08:54 Dose: 40 meq Documented by: Sodium Chloride (Sodium Chloride Flush 0.9% 10 Ml Syringe) 10 ml IVP PRN PRN PRN Reason: NEEDED PER PROVIDER ORDERS Last Admin: 09/04/20 06:04 Dose: 10 ml Documented by: Sodium Chloride (Sodium Chloride Flush 0.9% 10 Ml Syringe) 10 ml IVP 0100, 0900,1700 [facility] Last Admin: 09/08/20 08:59 Dose: 10 ml Documented by: Aspirin 81 mg PO DAILY 06/04/18 Potassium Chloride 40 meq PO DAILY 06/04/18 Umeclidinium Brm/Vilanterol Tr [Anoro Ellipta 62.5-25 Mcg INH] 1 puffs INH DAILY 06/04/18 Warfarin [Coumadin] 5 mg PO DAILY 06/04/18 ALPRAZolam [Alprazolam] 0.5 mg PO QPM 06/05/18 Albuterol 2.5 mg INH Q6H PRN 06/05/18 Finasteride 5 mg PO DAILY 06/05/18 Hydrocodone/Acetaminophen [Hydrocodone-Acetamin 5-325 mg] 1 tab PO TID PRN 06/05/18 Tamsulosin [Flomax] 0.4 mg PO 1730 06/05/18 Atorvastatin Calcium 40 mg PO DAILY PM 02/09/20 Furosemide 60 mg ORAL DAILY 02/09/20 Ipratropium/Albuterol [Duoneb] 3 ml INH Q6H PRN 02/09/20 Levetiracetam [Keppra] 750 mg PO BID 02/09/20 Metoprolol Succinate 50 mg PO BID 02/09/20 lisinopriL [Zestril] 5 mg ORAL DAILY 02/09/20 Allergies/Adverse Reactions: Allergies Allergy/AdvReac Type Severity Reaction Status Date / Time No Known Drug Allergies Allergy Verified 09/01/20 11:47 Anes History & Medical History - Anesthetic History Anesthesia Complications: reports: No previous complications Family history of Anesthesia Complications: Denies Family history of Malignant Hyperthermia: Denies - Medical History Cardiovascular: reports: Congestive heart failure, Hypertension, High cholesterol, Atrial fibrillation Pulmonary: reports: COPD, Emphysema, Sleep apnea, Other (on 2.5 L/hr O2 at home) Gastrointestinal: reports: None Urinary: reports: Benign prostate hypertrophy Neuro: reports: CVA (left sided weakness), Seizure disorder Musculoskeletal: reports: Other Endocrine/Autoimmune: reports: None Blood Disorders: reports: None Skin: reports: None Smoking Status: Former smoker Other Past Medical History: 2.5L O2 at baseline per the pt; pt had long BKA performed in 1985 and typically uses his prosthesis for all mobilty, occasionally requiring a manasa-walker - Surgical History Eyes Ears Nose Throat (EENT): Myringotomy (tubes) Orthopedic: Amputation Exam General: Alert, Oriented x3, Cooperative, No acute distress Dental: WNL Mouth Openin Fingerbreadth Neck Mobility: Normal Mallampati classification: II Respiratory: Lungs clear, Normal breath sounds, No respiratory distress, No accessory muscle use Plan Anesthesia Type: MAC, Popliteal Block Regional Block: Per Surgeon's request for Post Op pain control Consent for Procedure(s) Verified and Reviewed: Yes Code Status: Attempt Resuscitation ASA classification: 3-Severe systemic disease Is this case an emergency?: No
[2020-09-08] MEDS ORDERED: KETAMINE 500 MG/10 ML VIAL ONE (09:12)
[2020-09-08] MEDS ORDERED: PROPOFOL 500 MG/50 ML 500 MG/50 ML VIAL ONE (10:08)
[2020-09-08 13:06] LABS: INR 1.6 (0.8-1.2); PT - PROTHROMBIN TIME 17.5 secs (9.9-12.6)
[2020-09-08] MEDS ORDERED: LIDOCAINE 2%-EPI 1:100000 20 ML MDV ONE (13:34)
[2020-09-08] MEDS ORDERED: BUPIVACAINE 0.5% PF 30 ML VIAL ONE (13:34)
[2020-09-08] MEDS ORDERED: LIDOCAINE 2%-EPI 1:100000 20 ML MDV SUBQ ONE (14:30)
[2020-09-08] MEDS ORDERED: BUPIVACAINE 0.5% PF 30 ML VIAL INFIL ONE (14:30)
[2020-09-08] MEDS ORDERED: SODIUM CHLORIDE 0.9% 10 ML ONE ×2 (14:44→14:46)
[2020-09-08] MEDS ORDERED: LIDOCAINE-MPF 2% 5 ML VIAL ONE ×2 (14:44→14:45)
[2020-09-08] MEDS ORDERED: MIDAZOLAM 2 MG/2 ML VIAL ONE (14:47)
[2020-09-08] MEDS ORDERED: ceFAZolin 1 GM VIAL ONE (15:25)
[2020-09-08] MEDS ORDERED: ePHEDrine 50 MG/ML VIAL IVP ONE (16:06)
--- NOTE | 2020-09-08 16:08 | PROVIDER PROGRESS NOTE ---
Assessment/Plan - Problem List (1) Pressure ulcer of ankle Qualifiers: Pressure injury stage: stage 3 Laterality: left Qualified Code(s): L89.523 - Pressure ulcer of left ankle, stage 3 Assessment/Plan: 127, Patient INI is 2.1 today morning, although pt was not given Coumadin. Surgeon Dr. Garcia ask patient to have vitamin K, And frozen plasma. Patient was given vitamin K and frozen plasma, recheck INR is 1.6, We will follow up after patient has the procedure. Consult with surgeon for the wound care, Plan tomorrow plan to do surgery for patient. Patient is INR of 2.2, will hold the Coumadin. order EKG. order ECHO, pt has previous ECHO shown normal EF, and right side heart abnormal pressure. CECI criteria show 6.6% Estimated rate of Myocardial ischemia, pulmonary edema, ventricular fibrillation, cardiac arrest or complete cardiac block (2) Fibula fracture Consult with orthopedic surgeon, X-ray was ordered by orthopedics and will follow up, Continue PT and OT. (3) Pressure ulcer of left hip, stage 1 Impression: Continue with frequent turns and dressing changes, Continue nurse care (4) Atrial fibrillation Impression: Heart rate controlled. hold home Coumadin today for Tomorrow surgery. Continue metoprolol. Continue INR checks (5) History of stroke with current residual effects Impression: Stable. hold Coumadin and continue statin. (6) History of seizure disorder Impression: Stable. Continue Keppra. (2) Fibula fracture Qualifiers: Encounter type: initial encounter Fibula location: proximal Fracture type: closed Fracture morphology: unspecified fracture morphology Laterality: left Qualified Code(s): S82.832A - Other fracture of upper and lower end of left fibula, initial encounter for closed fracture - Current Meds Current Meds: Current Medications Generic Name Dose Route Start Last Admin Trade Name Freq PRN Reason Stop Dose Admin Acetaminophen 1,000 mg 09/04/20 22:00 09/08/20 14:13 Acetaminophen 500 Mg Tablet PO 1,000 mg TID RAUL Administration Alprazolam 0.5 mg 09/04/20 21:00 09/07/20 22:15 Alprazolam 0.25 Mg Tablet PO 0.5 mg QPM RAUL Administration Aspirin 81 mg 09/03/20 09:00 09/08/20 08:53 Aspirin Chew 81 Mg Tablet PO 81 mg DAILY RAUL Administration Atorvastatin Calcium 40 mg 09/04/20 21:00 09/07/20 22:16 Atorvastatin 40 Mg Tablet PO 40 mg QPM RAUL Administration Finasteride 5 mg 09/03/20 09:00 09/08/20 08:54 Finasteride 5 Mg Tablet PO 5 mg DAILY RAUL Administration Furosemide 40 mg 09/06/20 09:00 09/08/20 08:54 Furosemide 20 Mg Tablet PO 40 mg DAILY RAUL Administration Levetiracetam 750 mg 09/03/20 09:00 09/08/20 08:53 Levetiracetam 250 Mg Tablet PO 750 mg BID RAUL Administration Metoprolol Succinate 25 mg 09/03/20 09:00 09/08/20 08:54 Metoprolol Succinate 25 Mg Tablet PO 25 mg BID RAUL Administration Oxycodone HCl 5 mg 09/04/20 18:27 09/08/20 05:42 Oxycodone 5 Mg Tablet PO 5 mg Q4HR PRN Administration PAIN Polyethylene Glycol 17 gm 09/08/20 09:00 09/08/20 08:55 Polyethylene Glycol 3350 17 Gm Packet PO Not Given DAILY RAUL Potassium Chloride 40 meq 09/03/20 09:00 09/08/20 08:54 Potassium Chloride 20 Meq Tablet PO 40 meq DAILY RAUL Administration Sodium Chloride 10 ml 09/03/20 14:34 09/04/20 06:04 Sodium Chloride Flush 0.9% 10 Ml Syringe IVP 10 ml PRN PRN Administration NEEDED PER PROVIDER ORDERS Sodium Chloride 10 ml 09/03/20 17:00 09/08/20 08:59 Sodium Chloride Flush 0.9% 10 Ml Syringe IVP 10 ml 0100,0900,1700 RAUL Administration - Lab Result Fish Bone Diagrams: 09/08/20 05:08 09/08/20 05:08 - Additional Planning My Orders: My Active Orders 09/07/20 15:09 Echo Transthoracic Complete [ECHO] Routine 09/08/20 00:01 NPO except Meds at Midnight [DIET] 09/08/20 08:13 Transfuse Fresh Frozen Plasma [RC] .ONCE 09/09/20 05:00 BMP - BASIC METABOLIC PANEL [CHEM] DAILYLAB CBC - COMP BLD CT W/AUTO DIFF [HEME] DAILYLAB PT WITH INR [COAG] DAILYLAB 09/10/20 05:00 BMP - BASIC METABOLIC PANEL [CHEM] DAILYLAB CBC - COMP BLD CT W/AUTO DIFF [HEME] DAILYLAB PT WITH INR [COAG] DAILYLAB 09/11/20 05:00 BMP - BASIC METABOLIC PANEL [CHEM] DAILYLAB CBC - COMP BLD CT W/AUTO DIFF [HEME] DAILYLAB PT WITH INR [COAG] DAILYLAB 09/12/20 05:00 BMP - BASIC METABOLIC PANEL [CHEM] DAILYLAB CBC - COMP BLD CT W/AUTO DIFF [HEME] DAILYLAB PT WITH INR [COAG] DAILYLAB Subjective - Subjective Patient Reports: Feeling Better Objective Vital Signs: Vital Signs - 24 hr 09/07/20 09/07/20 09/08/20 17:00 23:23 06:00 Temperature 36.5 C 36.5 C Heart Rate 81 Heart Rate [ 95 88 Brachial] Respiratory 18 18 18 Rate Blood Pressure Blood Pressure 116/82 H 102/69 [Right Brachial artery] O2 Saturation 95 93 09/08/20 09/08/20 09/08/20 08:19 08:30 10:38 Temperature 36.5 C 36.6 C Heart Rate 74 84 Heart Rate [ 74 Brachial] Respiratory 18 18 17 Rate Blood Pressure 110/66 Blood Pressure 109/70 [Right Brachial artery] O2 Saturation 97 09/08/20 09/08/20 09/08/20 11:11 11:19 11:50 Temperature 36.8 C 36.8 C 36.4 C L Heart Rate 80 79 85 Heart Rate [ Brachial] Respiratory 18 17 20 Rate Blood Pressure 120/96 H 120/96 H 117/83 H Blood Pressure [Right Brachial artery] O2 Saturation Oxygen O2 Source Room air I&O (Last 24 Hrs): Intake and Output Totals x24h 09/06/20 09/07/20 09/08/20 23:59 23:59 23:59 Intake Total 360 2680 1700 Output Total 450 1650 745 Balance -90 1030 955 General: Alert, Oriented x3, No acute distress HEENT: Atraumatic Neck: Supple Lymphatic: no adenopathy Neuro: Alert, Non Focal, Oriented Times 3 Cardiovascular: Regular rate, Normal S1, Normal S2 Respiratory: Chest non-tender, No respiratory distress Abdomen: Normal bowel sounds, Soft, No tenderness - Results Results: Laboratory Results WBC 8.2 x10^3/uL (4.8-10.8) 09/08/20 05:08 RBC 3.76 10^6/uL (4.70-6.10) L 09/08/20 05:08 Hgb 12.4 g/dL (14.0-18.0) L 09/08/20 05:08 Hct 38.3 % (42.0-52.0) L 09/08/20 05:08 MCV 101.9 fL (80.0-94.0) H 09/08/20 05:08 MCH 33.0 pg (27.0-31.0) H 09/08/20 05:08 MCHC 32.4 g/dL (32.0-36.0) 09/08/20 05:08 RDW 14.1 % (12.0-15.0) 09/08/20 05:08 Plt Count 144 10^3/uL (130-450) 09/08/20 05:08 MPV 12.4 fL (7.4-11.4) H 09/08/20 05:08 Neut # (Auto) 6.4 10^3/uL (1.5-6.6) 09/08/20 05:08 Lymph # (Auto) 0.8 10^3/uL (1.5-3.5) L 09/08/20 05:08 [place] # (Auto) 0.7 10^3/uL (0.0-1.0) 09/08/20 05:08 Eos # (Auto) 0.2 10^3/uL (0.0-0.7) 09/08/20 05:08 Baso # (Auto) 0.1 10^3/uL (0.0-0.1) 09/08/20 05:08 Absolute Nucleated RBC 0.00 x10^3/uL 09/08/20 05:08 Nucleated RBC % 0.0 /100WBC 09/08/20 05:08 PT 17.5 secs (9.9-12.6) H 09/08/20 12:45 INR 1.6 (0.8-1.2) H 09/08/20 12:45 Sodium 133 mmol/L (135-145) L 09/08/20 05:08 Potassium 3.9 mmol/L (3.5-5.0) 09/08/20 05:08 Chloride 103 mmol/L (101-111) 09/08/20 05:08 Carbon Dioxide 23 mmol/L (21-32) 09/08/20 05:08 Anion Gap 7.0 (6-13) 09/08/20 05:08 BUN 18 mg/dL (6-20) 09/08/20 05:08 Creatinine 0.6 mg/dL (0.6-1.2) 09/08/20 05:08 Estimated GFR (MDRD) 135 (>89) 09/08/20 05:08 Glucose 108 mg/dL (70-100) H 09/08/20 05:08 Calcium 8.4 mg/dL (8.5-10.3) L 09/08/20 05:08 Total Bilirubin 2.4 mg/dL (0.2-1.0) H 09/01/20 16:30 AST 52 IU/L (10-42) H 09/01/20 16:30 ALT 55 IU/L (10-60) 09/01/20 16:30 Alkaline Phosphatase 100 IU/L (42-121) 09/01/20 16:30 Total Protein 7.5 g/dL (6.7-8.2) 09/01/20 16:30 Albumin 3.5 g/dL (3.2-5.5) 09/01/20 16:30 Globulin 4.0 g/dL (2.1-4.2) 09/01/20 16:30 Albumin/Globulin Ratio 0.9 (1.0-2.2) L 09/01/20 16:30 Lipase 35 U/L (22-51) 09/01/20 16:30 Urine Color YELLOW 09/01/20 23:32 Urine Clarity CLEAR (CLEAR) 09/01/20 23:32 Urine pH 5.5 PH (5.0-7.5) 09/01/20 23:32 Ur Specific [place] 1.025 (1.002-1.030) 09/01/20 23:32 Urine Protein NEGATIVE mg/dL (NEGATIVE) 09/01/20 23:32 Urine Glucose (UA) NEGATIVE mg/dL (NEGATIVE) 09/01/20 23:32 Urine Ketones NEGATIVE mg/dL (NEGATIVE) 09/01/20 23:32 Urine Occult Blood TRACE-LYSE (NEGATIVE) 09/01/20 23:32 Urine Nitrite NEGATIVE (NEGATIVE) 09/01/20 23:32 Urine Bilirubin NEGATIVE (NEGATIVE) 09/01/20 23:32 Urine Urobilinogen 1 (NORMAL) E.U./dL (NORMAL) 09/01/20 23:32 Ur Leukocyte Esterase NEGATIVE (NEGATIVE) 09/01/20 23:32 Ur Microscopic Review NOT INDICATED 09/01/20 23:32 Urine Culture Comments NOT INDICATED 09/01/20 23:32 Nasal Adenovirus (PCR) NOT DETECTED 09/03/20 18:10 Nasal B. parapertussis DNA (PCR) NOT DETECTED 09/03/20 18:10 Nasal Coronavir 229E PCR NOT DETECTED 09/03/20 18:10 Nasal Coronavir HKU1 PCR NOT DETECTED 09/03/20 18:10 Nasal Coronavir NL63 PCR NOT DETECTED 09/03/20 18:10 Nasal Coronavir OC43 PCR NOT DETECTED 09/03/20 18:10 Nasal Enterovir/Rhinovir PCR NOT DETECTED 09/03/20 18:10 Nasal Influenza B PCR NOT DETECTED 09/03/20 18:10 Nasal Influenza A PCR NOT DETECTED 09/03/20 18:10 Nasal Parainfluen 1 PCR NOT DETECTED 09/03/20 18:10 Nasal Parainfluen 2 PCR NOT DETECTED 09/03/20 18:10 Nasal Parainfluen 3 PCR NOT DETECTED 09/03/20 18:10 Nasal Parainfluen 4 PCR NOT DETECTED 09/03/20 18:10 Nasal RSV (PCR) NOT DETECTED 09/03/20 18:10 Nasal B.pertussis DNA PCR NOT DETECTED 09/03/20 18:10 Nasal C.pneumoniae (PCR) NOT DETECTED 09/03/20 18:10 [place] Human Metapneumo PCR NOT DETECTED 09/03/20 18:10 Nasal M.pneumoniae (PCR) NOT DETECTED 09/03/20 18:10 Nasal SARS-CoV-2 (PCR) NOT DETECTED 09/03/20 18:10 Blood Type A POSITIVE 09/08/20 08:40 Blood Type Recheck A POSITIVE 09/08/20 05:00 Antibody Screen NEGATIVE 09/08/20 08:40 ABX Reporting Has patient been on IV antibiotics over the past 48 hours?: No Current Medications - Current Medications Current Medications: Active Medications Acetaminophen (Acetaminophen 500 Mg Tablet) 1,000 mg PO TID RAUL Last Admin: 09/08/20 14:13 Dose: 1,000 mg Documented by: Albuterol/Ipratropium (Ipratropium/Albuterol 3 Ml Neb) 3 ml INH Q4HR PRN PRN Reason: Wheezing Alprazolam (Alprazolam 0.25 Mg Tablet) 0.5 mg PO QPM [facility] Last Admin: 09/07/20 22:15 Dose: 0.5 mg Documented by: Aspirin (Aspirin Chew 81 Mg Tablet) 81 mg PO DAILY [facility] Last Admin: 09/08/20 08:53 Dose: 81 mg Documented by: Atorvastatin Calcium (Atorvastatin 40 Mg Tablet) 40 mg PO QPM [facility] Last Admin: 09/07/20 22:16 Dose: 40 mg Documented by: Finasteride (Finasteride 5 Mg Tablet) 5 mg PO DAILY [facility] Last Admin: 09/08/20 08:54 Dose: 5 mg Documented by: Furosemide (Furosemide 20 Mg Tablet) 40 mg PO DAILY [facility] Last Admin: 09/08/20 08:54 Dose: 40 mg Documented by: Levetiracetam (Levetiracetam 250 Mg Tablet) 750 mg PO BID [facility] Last Admin: 09/08/20 08:53 Dose: 750 mg Documented by: Metoprolol Succinate (Metoprolol Succinate 25 Mg Tablet) 25 mg PO BID [facility] Last Admin: 09/08/20 08:54 Dose: 25 mg Documented by: Oxycodone HCl (Oxycodone 5 Mg Tablet) 5 mg PO Q4HR PRN PRN Reason: PAIN Last Admin: 09/08/20 05:42 Dose: 5 mg Documented by: Polyethylene Glycol (Polyethylene Glycol 3350 17 Gm Packet) 17 gm PO DAILY [facility] Last Admin: 09/08/20 08:55 Dose: Not Given Documented by: Potassium Chloride (Potassium Chloride 20 Meq Tablet) 40 meq PO DAILY [facility] Last Admin: 09/08/20 08:54 Dose: 40 meq Documented by: Sodium Chloride (Sodium Chloride Flush 0.9% 10 Ml Syringe) 10 ml IVP PRN PRN PRN Reason: NEEDED PER PROVIDER ORDERS Last Admin: 09/04/20 06:04 Dose: 10 ml Documented by: Sodium Chloride (Sodium Chloride Flush 0.9% 10 Ml Syringe) 10 ml IVP 0100,0900,1700 [facility] Last Admin: 09/08/20 08:59 Dose: 10 ml Documented by: Aspirin 81 mg PO DAILY 06/04/18 Potassium Chloride 40 meq PO DAILY 06/04/18 Umeclidinium Brm/Vilanterol Tr [Anoro Ellipta 62.5-25 Mcg INH] 1 puffs INH DAILY 06/04/18 Warfarin [Coumadin] 5 mg PO DAILY 06/04/18 ALPRAZolam [Alprazolam] 0.5 mg PO QPM 06/05/18 Albuterol 2.5 mg INH Q6H PRN 06/05/18 Finasteride 5 mg PO DAILY 06/05/18 Hydrocodone/Acetaminophen [Hydrocodone-Acetamin 5-325 mg] 1 tab PO TID PRN 06/05/18 Tamsulosin [Flomax] 0.4 mg PO 1730 06/05/18 Atorvastatin Calcium 40 mg PO DAILY PM 02/09/20 Furosemide 60 mg ORAL DAILY 02/09/20 Ipratropium/Albuterol [Duoneb] 3 ml INH Q6H PRN 02/09/20 Levetiracetam [Keppra] 750 mg PO BID 02/09/20 Metoprolol Succinate 50 mg PO BID 02/09/20 lisinopriL [Zestril] 5 mg ORAL DAILY 02/09/20
[2020-09-08] MEDS ORDERED: LACTATED RINGERS 1,000 ML IV ONE (16:48)
[2020-09-08] MEDS ORDERED: ePHEDrine 50 MG/ML VIAL IVP PRN (17:00)
[2020-09-08] MEDS ORDERED: HYDROmorphone 0.5 MG/0.5 ML SYRINGE IVP PRN (17:00)
[2020-09-08] MEDS ORDERED: MORPHINE 2 MG/ML CARPUJECT IVP PRN (17:00)
[2020-09-08] MEDS ORDERED: ATROPINE ABBOJECT 1 MG/10 ML SYRINGE IVP PRN (17:00)
[2020-09-08] MEDS ORDERED: METOCLOPRAMIDE 10 MG/2 ML VIAL IVP PRN (17:00)
[2020-09-08] MEDS ORDERED: LACTATED RINGERS 1,000 ML IV SCH (17:00)
[2020-09-08] MEDS ORDERED: NALOXONE 0.4 MG/ML VIAL IVP PRN (17:00)
[2020-09-08] MEDS ORDERED: ONDANSETRON 4 MG/2 ML VIAL IVP PRN (17:00)
[2020-09-08] MEDS ORDERED: fentaNYL 100 MCG/2 ML VIAL IVP PRN (17:00)
--- NOTE | 2020-09-08 17:02 | OPERATIVE REPORT ---
Operative Report - General Admit Date: 09/04/20 Procedure Date: 09/08/20 Planned Procedure: 1. Wound debridement pressure ulceration 2. Stump revision skin and soft tissue 3. Possible left distal fibula resection 4. Possible left distal tibia resection 5. Wound washout and possible closure Pre-Op Diagnosis: Lt stump ulcer; Hx of traumatic LLE injury; LLE tib-fib fx Procedure Performed: 1. Wound debridement pressure ulceration 2. Stump revision skin and soft tissue, Left leg 3. Left distal fibula resection 4. Left distal tibia resection 5. Wound washout 6. Complex skin and soft tissue closure 7. Drain placement 8. Splint placement Post Op Diagnosis: Same; successful closure of left stump defect - Procedure Note Primary Surgeon: Ann Secondary Surgeon: Nancie Anesthesia Provider: Roberto Anesthesia Technique: Local, MAC, Regional block Pathology: 1. Bone for pathology and culture, LLE 2. Skin and soft tissue for pathology and culture, LLE Estimated Blood Loss (mL): 20 Drain/Tube Type: Contreras drain Indications: See EMR Findings: 1. Ulceration with no cherie purulence or infectious process 2. Low-tension primary closure after tib-fib partial resection 3. History of Symes rotation; bony prominence with significant burden for which resection allowed primary closure 4. We will plan knee immobilizing splint postoperatively Complications: NONE - Other Other Information/Narrative: Final report pending
--- NOTE | 2020-09-08 17:12 | ANESTHESIA POST OP EVALUATION ---
Anesthesia Post Eval - Post Anesthesia Eval Vitals: Last Vital Signs Temp 37.6 C 09/08/20 16:55 Pulse 88 09/08/20 17:05 Resp 25 H 09/08/20 17:05 BP 116/95 H 09/08/20 17:05 Pulse Ox 97 09/08/20 17:05 CV Function Including HR & BP: positive: Stable Pain Control: positive: Satisfactory Nausea & Vomiting: positive: Negative Mental Status: positive: Baseline Respiratory Status: Airway Patent Hydration Status: Satisfactory Anesthesia Complications: positive: None
--- NOTE | 2020-09-08 18:14 | XRAY Report ---
PROCEDURE: Chest 1 View X-Ray INDICATIONS: sob TECHNIQUE: One view of the chest was acquired. COMPARISON: 09/08/2020 at 0808 hours. FINDINGS: Surgical changes and devices: None. Lungs and pleura: Interstitial prominence noted in the lungs bilaterally has developed in the interva l since prior exam.. Mediastinum: Mediastinal contours appear normal. Heart is enlarged Bones and chest wall: No suspicious bony lesions. Overlying soft tissues appear unremarkable. IMPRESSION: 1. Cardiomegaly. 2. Bilateral lung interstitial prominence which could represent pulmonary edema versus atypical/viral pneumonia. Reviewed by: Ashlie Costa MD, PhD on 09/08/2020 5:13 PM [facility] Approved by: Ashlie Costa MD, PhD on 09/08/2020 5:13 PM [facility] Station ID: [id number]
[2020-09-08] MEDS: ceFAZolin 1 GM in SODIUM CHLORIDE 0.9% MINIBAG 100 ML IV SCH (19:11)
[2020-09-08] MEDS: SODIUM CHLORIDE 0.9% 1,000 ML IV SCH (19:13)
[2020-09-08] MEDS: ATORVASTATIN 40 MG TABLET PO SCH (21:18)
[2020-09-08] MEDS: ALPRAZolam 0.25 MG TABLET PO SCH (21:18)
[2020-09-09] MEDS: SODIUM CHLORIDE FLUSH 0.9% 10 ML SYRINGE IVP SCH ×3 (00:27→18:51)
[2020-09-09] MEDS: ceFAZolin 1 GM in SODIUM CHLORIDE 0.9% MINIBAG 100 ML IV SCH ×3 (01:34→18:51)
[2020-09-09] MEDS: oxyCODONE 5 MG TABLET PO PRN ×4 (01:35→20:35)
[2020-09-09 05:03] LABS: CALCIUM 8.6 mg/dL (8.5-10.3); CREATININE 0.5 mg/dL (0.6-1.2); POTASSIUM 3.7 mmol/L (3.5-5.0)
[2020-09-09 05:13] LABS: BASOPHILS # (AUTO) 0.1 10^3/uL (0.0-0.1); BASOPHILS % (AUTO) 0.8 %; EOSINOPHILS # (AUTO) 0.2 10^3/uL (0.0-0.7); EOSINOPHILS % (AUTO) 2.1 %; HCT - HEMATOCRIT 38.2 % (42.0-52.0); HGB - HEMOGLOBIN 12.5 g/dL (14.0-18.0); LYMPHOCYTES # (AUTO) 1.1 10^3/uL (1.5-3.5); LYMPHOCYTES % (AUTO) 14.7 %; MEAN CORPUSCULAR HGB CONC 32.7 g/dL (32.0-36.0); MEAN CORPUSCULAR VOLUME 103.8 fL (80.0-94.0); MEAN PLATELET VOLUME 13.5 fL (7.4-11.4); MONOCYTES # (AUTO) 0.7 10^3/uL (0.0-1.0); MONOCYTES % (AUTO) 9.1 %; NEUTROPHILS # (AUTO) 5.6 10^3/uL (1.5-6.6); NEUTROPHILS % (AUTO) 72.9 %; PLT - PLATELET COUNT 102 10^3/uL (130-450); RED BLOOD COUNT 3.68 10^6/uL (4.70-6.10); RED CELL DISTRIBUTION WIDTH 14.2 % (12.0-15.0); WHITE BLOOD COUNT 7.6 x10^3/uL (4.8-10.8)
[2020-09-09 05:16] LABS: INR 1.4 (0.8-1.2); PT - PROTHROMBIN TIME 15.5 secs (9.9-12.6)
[2020-09-09 05:39] LABS: PLATELET ESTIMATE, MANUAL DECREASED (<130,000) (NORMAL)
[2020-09-09] MEDS: ACETAMINOPHEN 500 MG TABLET PO SCH ×3 (06:27→21:25)
[2020-09-09] MEDS: SODIUM CHLORIDE 0.9% 1,000 ML IV SCH (06:34)
[2020-09-09] MEDS ORDERED: AZITHROMYCIN 250 MG TABLET PO STA (07:53)
[2020-09-09] MEDS: POTASSIUM CHLORIDE 20 MEQ TABLET PO SCH (08:17)
[2020-09-09] MEDS: levETIRAcetam 250 MG TABLET PO SCH ×2 (08:17→20:35)
[2020-09-09] MEDS: ASPIRIN CHEW 81 MG TABLET PO SCH (08:19)
[2020-09-09] MEDS: FUROSEMIDE 20 MG TABLET PO SCH ×2 (08:19→09:36)
[2020-09-09] MEDS: FINASTERIDE 5 MG TABLET PO SCH (08:20)
[2020-09-09] MEDS: METOPROLOL SUCCINATE 25 MG TABLET PO SCH ×2 (08:21→20:35)
[2020-09-09] MEDS: polyethylene glycoL 3350 17 GM PACKET PO SCH (08:25)
[2020-09-09] MEDS: ENOXAPARIN 40 MG/0.4 ML SYRINGE SUBQ SCH (08:29)
[2020-09-09] MEDS ORDERED: FUROSEMIDE 40 MG TABLET PO SCH (09:00)
[2020-09-09] MEDS: MULTIVITAMIN W/MINERALS TABLET PO SCH (12:07)
--- NOTE | 2020-09-09 16:01 | PROVIDER PROGRESS NOTE ---
Assessment/Plan - Problem List (1) Ulcer of left ankle Assessment/Plan: 09/09 status post of Low-tension primary closure after tib-fib partial resection and wound care, drainage bag, followup with surgeon's recommendation for antibiotics, and followup with wound culture as well. continue PT/OT, continue incentive spiromenter. 127, Patient INI is 2.1 today morning, although pt was not given Coumadin. Lisa Garcia ask patient to have vitamin K, And frozen plasma. Patient was given vitamin K and frozen plasma, recheck INR is 1.6, We will follow up after patient has the procedure. Consult with surgeon for the wound care, Plan tomorrow plan to do surgery for patient. Patient is INR of 2.2, will hold the Coumadin. order EKG. order ECHO, pt has previous ECHO shown normal EF, and right side he art abnormal pressure. CECI criteria show 6.6% Estimated rate of Myocardial ischemia, pulmonary edema, ventricular fibrillation, cardiac arrest or complete cardiac block (2) Fibula fracture Consult with orthopedic surgeon, X-ray was ordered by orthopedics and will follow up, Continue PT and OT. (3) Pressure ulcer of left hip, stage 1 Impression: Continue with frequent turns and dressing changes, Continue nurse care (4) Atrial fibrillation Impression: 09/09 will continue hold Coumadin now per surgeon's recommendation to prevention of bleeding status post of procedure. will continue check PT/INR, lovenox is order for pt now. Heart rate controlled. hold home Coumadin today for Tomorrow surgery. Continue metoprolol. Continue INR checks (5) History of stroke with current residual effects Impression: Stable. hold Coumadin and continue statin. (6) History of seizure disorder Impression: Stable. Continue Keppra. (7)pneumonia Patient present tachypnea, oxygen saturation reduce, With mild cough. X-rays show patient has atypical pneumonia, will check Covid 19 check, add Azithromyc in, Plus Ancef for Treatment (2) Fibula fracture Qualifiers: Encounter type: initial encounter Fibula location: proximal Fracture type: closed Fracture morphology: unspecified fracture morphology Laterality: left Qualified Code(s): S82.832A - Other fracture of upper and lower end of left fibula, initial encounter for closed fracture - Current Meds Current Meds: Current Medications Generic Name Dose Route Start Last Admin Trade Name Freq PRN Reason Stop Dose Admin Acetaminophen 1,000 mg 09/04/20 22:00 09/09/20 06:27 Acetaminophen 500 Mg Tablet PO 1,000 mg TID RAUL Administration Alprazolam 0.5 mg 09/04/20 21:00 09/08/20 21:18 Alprazolam 0.25 Mg Tablet PO 0.5 mg QPM RAUL Administration Aspirin 81 mg 09/03/20 09:00 09/09/20 08:19 Aspirin Chew 81 Mg Tablet PO 81 mg DAILY RAUL Administration Atorvastatin Calcium 40 mg 09/04/20 21:00 09/08/20 21:18 Atorvastatin 40 Mg Tablet PO 40 mg QPM RAUL Administration Enoxaparin Sodium 40 mg 09/09/20 09:00 09/09/20 08:29 Enoxaparin 40 Mg/0.4 Ml Syringe SUBQ 40 mg DAILY RAUL Administration Finasteride 5 mg 09/03/20 09:00 09/09/20 08:20 Finasteride 5 Mg Tablet PO 5 mg DAILY RAUL Administration Cefazolin Sodium 1 gm/ Sodium 100 mls @ 200 mls/hr 09/08/20 18:00 09/09/20 12:08 Chloride IV Not Given Q8H RAUL Levetiracetam 750 mg 09/03/20 09:00 09/09/20 08:17 Levetiracetam 250 Mg Tablet PO 750 mg BID RAUL Administration Metoprolol Succinate 25 mg 09/03/20 09:00 09/09/20 08:21 Metoprolol Succinate 25 Mg Tablet PO 25 mg BID RAUL Administration Multivitamins/Minerals 1 tab 09/09/20 10:00 09/09/20 12:07 Multivitamin W/Minerals Tablet PO 1 tab DAILYWM RAUL Administration Oxycodone HCl 5 mg 09/04/20 18:27 09/09/20 08:18 Oxycodone 5 Mg Tablet PO 5 mg Q4HR PRN Administration PAIN Polyethylene Glycol 17 gm 09/08/20 09:00 09/09/20 08:25 Polyethylene Glycol 3350 17 Gm Packet PO 17 gm DAILY RAUL Administration Potassium Chloride 40 meq 09/03/20 09:00 09/09/20 08:17 Potassium Chloride 20 Meq Tablet PO 40 meq DAILY RAUL Administration Sodium Chloride 10 ml 09/03/20 14:34 09/04/20 06:04 Sodium Chloride Flush 0.9% 10 Ml Syringe IVP 10 ml PRN PRN Administration NEEDED PER PROVIDER ORDERS Sodium Chloride 10 ml 09/03/20 17:00 09/09/20 09:48 Sodium Chloride Flush 0.9% 10 Ml Syringe IVP 10 ml 0100,0900,1700 RAUL Administration - Lab Result Fish Bone Diagrams: 09/09/20 04:39 09/09/20 04:39 - Additional Planning My Orders: My Active Orders 09/08/20 18:00 ceFAZolin [Ancef] 1 gm Sodium Chloride 0.9% Minibag [Normal Saline 0.9% Minibag] 100 ml IV Q8H 09/09/20 04:39 FOLATE [IAI] Routine VITAMIN B12 [IAI] Routine 09/09/20 07:54 Incentive Spirometry - RT [RC] TID 09/09/20 07:55 Out of bed 4+ hours [RC] QID 09/09/20 09:00 Enoxaparin [Lovenox] 40 mg SUBQ DAILY 09/09/20 10:00 Multivitamin W/Minerals [Theragran M] 1 tab PO DAILYWM 09/09/20 Lunch Regular Diet [DIET] 09/10/20 05:00 BMP - BASIC METABOLIC PANEL [CHEM] DAILYLAB CBC - COMP BLD CT W/AUTO DIFF [HEME] DAILYLAB PT WITH INR [COAG] DAILYLAB 09/10/20 09:00 Azithromycin [Zithromax] 250 mg PO DAILY 09/11/20 05:00 BMP - BASIC METABOLIC PANEL [CHEM] DAILYLAB CBC - COMP BLD CT W/AUTO DIFF [HEME] DAILYLAB PT WITH INR [COAG] DAILYLAB 09/12/20 05:00 BMP - BASIC METABOLIC PANEL [CHEM] DAILYLAB CBC - COMP BLD CT W/AUTO DIFF [HEME] DAILYLAB PT WITH INR [COAG] DAILYLAB Subjective - Subjective Patient Reports: Feeling Better Objective Vital Signs: Vital Signs - 24 hr 09/08/20 09/08/20 09/08/20 16:43 16:45 16:50 Temperature 37.3 C Heart Rate 83 77 73 Heart Rate [ Brachial] Heart Rate [ Radial] Respiratory 20 20 20 Rate Blood Pressure 125/85 H 121/91 H 118/86 H Blood Pressure [Left Brachial artery] Blood Pressure [Right Brachial artery] O2 Saturation 98 99 98 09/08/20 09/08/20 09/08/20 16:55 17:00 17:05 Temperature 37.6 C Heart Rate 84 86 88 Heart Rate [ Brachial] Heart Rate [ Radial] Respiratory 23 25 H 25 H Rate Blood Pressure 135/88 H 117/82 H 116/95 H Blood Pressure [Left Brachial artery] Blood Pressure [Right Brachial artery] O2 Saturation 100 100 97 09/08/20 09/08/20 09/08/20 17:10 17:16 17:29 Temperature 37.3 C 37.2 C Heart Rate 91 94 Heart Rate [ 83 Brachial] Heart Rate [ Radial] Respiratory 24 20 23 Rate Blood Pressure 149/100 H 123/81 H Blood Pressure [Left Brachial artery] Blood Pressure 129/84 H [Right Brachial artery] O2 Saturation 94 95 98 09/08/20 09/09/20 09/09/20 19:18 00:00 06:35 Temperature 36.6 C 34.5 C L 35.7 C L Heart Rate Heart Rate [ 77 Brachial] Heart Rate [ 71 60 Radial] Respiratory 14 17 13 Rate Blood Pressure Blood Pressure 103/69 [Left Brachial artery] Blood Pressure 96/76 102/62 [Right Brachial artery] O2 Saturation 100 93 99 09/09/20 08:33 Temperature 36.3 C L Heart Rate Heart Rate [ 67 Brachial] Heart Rate [ Radial] Respiratory 18 Rate Blood Pressure Blood Pressure [Left Brachial artery] Blood Pressure 137/83 H [Right Brachial artery] O2 Saturation 97 Oxygen O2 Source Nasal cannula I&O (Last 24 Hrs): Intake and Output Totals x24h 09/07/20 09/08/20 09/09/20 23:59 23:59 23:59 Intake Total 2680 1800 3813 Output Total 1650 1185 725 Balance 0891 870 8419 General: Alert, Oriented x3, Cooperative, No acute distress HEENT: Atraumatic Neck: Supple Lymphatic: no adenopathy Neuro: Alert, Oriented Times 3 Cardiovascular: Regular rate, Normal S1, Normal S2 Respiratory: Chest non-tender, No respiratory distress Abdomen: Normal bowel sounds, Soft - Results Results: Laboratory Results WBC 7.6 x10^3/uL (4.8-10.8) 09/09/20 04:39 RBC 3.68 10^6/uL (4.70-6.10) L 09/09/20 04:39 Hgb 12.5 g/dL (14.0-18.0) L 09/09/20 04:39 Hct 38.2 % (42.0-52.0) L 09/09/20 04:39 MCV 103.8 fL (80.0-94.0) H 09/09/20 04:39 MCH 34.0 pg (27.0-31.0) H 09/09/20 04:39 MCHC 32.7 g/dL (32.0-36.0) 09/09/20 04:39 RDW 14.2 % (12.0-15.0) 09/09/20 04:39 Plt Count 102 10^3/uL (130-450) L 09/09/20 04:39 MPV 13.5 fL (7.4-11.4) H 09/09/20 04:39 Neut # (Auto) 5.6 10^3/uL (1.5-6.6) 09/09/20 04:39 Lymph # (Auto) 1.1 10^3/uL (1.5-3.5) L 09/09/20 04:39 [place] # (Auto) 0.7 10^3/uL (0.0-1.0) 09/09/20 04:39 Eos # (Auto) 0.2 10^3/uL (0.0-0.7) 09/09/20 04:39 Baso # (Auto) 0.1 10^3/uL (0.0-0.1) 09/09/20 04:39 Absolute Nucleated RBC 0.00 x10^3/uL 09/09/20 04:39 Nucleated RBC % 0.0 /100WBC 09/09/20 04:39 Platelet Estimate DECREASED (<130,000) (NORMAL) 09/09/20 04:39 PT 15.5 secs (9.9-12.6) H 09/09/20 04:39 INR 1.4 (0.8-1.2) H 09/09/20 04:39 Sodium 134 mmol/L (135-145) L 09/09/20 04:39 Potassium 3.7 mmol/L (3.5-5.0) 09/09/20 04:39 Chloride 100 mmol/L (101-111) L 09/09/20 04:39 Carbon Dioxide 27 mmol/L (21-32) 09/09/20 04:39 Anion Gap 7.0 (6-13) 09/09/20 04:39 BUN 11 mg/dL (6-20) 09/09/20 04:39 Creatinine 0.5 mg/dL (0.6-1.2) L 09/09/20 04:39 Estimated GFR (MDRD) 167 (>89) 09/09/20 04:39 Glucose 101 mg/dL (70-100) H 09/09/20 04:39 Calcium 8.6 mg/dL (8.5-10.3) 09/09/20 04:39 Total Bilirubin 2.4 mg/dL (0.2-1.0) H 09/01/20 16:30 AST 52 IU/L (10-42) H 09/01/20 16:30 ALT 55 IU/L (10-60) 09/01/20 16:30 Alkaline Phosphatase 100 IU/L (42-121) 09/01/20 16:30 Total Protein 7.5 g/dL (6.7-8.2) 09/01/20 16:30 Albumin 3.5 g/dL (3.2-5.5) 09/01/20 16:30 Globulin 4.0 g/dL (2.1-4.2) 09/01/20 16:30 Albumin/Globulin Ratio 0.9 (1.0-2.2) L 09/01/20 16:30 Lipase 35 U/L (22-51) 09/01/20 16:30 Urine Color YELLOW 09/01/20 23:32 Urine Clarity CLEAR (CLEAR) 09/01/20 23:32 Urine pH 5.5 PH (5.0-7.5) 09/01/20 23:32 Ur Specific [place] 1.025 (1.002-1.030) 09/01/20 23:32 Urine Protein NEGATIVE mg/dL (NEGATIVE) 09/01/20 23:32 Urine Glucose (UA) NEGATIVE mg/dL (NEGATIVE) 09/01/20 23:32 Urine Ketones NEGATIVE mg/dL (NEGATIVE) 09/01/20 23:32 Urine Occult Blood TRACE-LYSE (NEGATIVE) 09/01/20 23:32 Urine Nitrite NEGATIVE (NEGATIVE) 09/01/20 23:32 Urine Bilirubin NEGATIVE (NEGATIVE) 09/01/20 23:32 Urine Urobilinogen 1 (NORMAL) E.U./dL (NORMAL) 09/01/20 23:32 Ur Leukocyte Esterase NEGATIVE (NEGATIVE) 09/01/20 23:32 Ur Microscopic Review NOT INDICATED 09/01/20 23:32 Urine Culture Comments NOT INDICATED 09/01/20 23:32 Nasal Adenovirus (PCR) NOT DETECTED 09/03/20 18:10 Nasal B. parapertussis DNA (PCR) NOT DETECTED 09/03/20 18:10 Nasal Coronavir 229E PCR NOT DETECTED 09/03/20 18:10 Nasal Coronavir HKU1 PCR NOT DETECTED 09/03/20 18:10 Nasal Coronavir NL63 PCR NOT DETECTED 09/03/20 18:10 Nasal Coronavir OC43 PCR NOT DETECTED 09/03/20 18:10 Nasal Enterovir/Rhinovir PCR NOT DETECTED 09/03/20 18:10 Nasal Influenza B PCR NOT DETECTED 09/03/20 18:10 Nasal Influenza A PCR NOT DETECTED 09/03/20 18:10 Nasal Parainfluen 1 PCR NOT DETECTED 09/03/20 18:10 Nasal Parainfluen 2 PCR NOT DETECTED 09/03/20 18:10 Nasal Parainfluen 3 PCR NOT DETECTED 09/03/20 18:10 Nasal Parainfluen 4 PCR NOT DETECTED 09/03/20 18:10 Nasal RSV (PCR) NOT DETECTED 09/03/20 18:10 Nasal B.pertussis DNA PCR NOT DETECTED 09/03/20 18:10 Nasal C.pneumoniae (PCR) NOT DETECTED 09/03/20 18:10 [place] Human Metapneumo PCR NOT DETECTED 09/03/20 18:10 Nasal M.pneumoniae (PCR) NOT DETECTED 09/03/20 18:10 Nasal SARS-CoV-2 (PCR) NOT DETECTED 09/03/20 18:10 Blood Type A POSITIVE 09/08/20 08:40 Blood Type Recheck A POSITIVE 09/08/20 05:00 Antibody Screen NEGATIVE 09/08/20 08:40 ABX Reporting Has patient been on IV antibiotics over the past 48 hours?: Yes Current Medications - Current Medications Current Medications: Active Medications Acetaminophen (Acetaminophen 500 Mg Tablet) 1,000 mg PO TID RAUL Last Admin: 09/09/20 16:04 Dose: 1,000 mg Documented by: Albuterol/Ipratropium (Ipratropium/Albuterol 3 Ml Neb) 3 ml INH Q4HR PRN PRN Reason: Wheezing Alprazolam (Alprazolam 0.25 Mg Tablet) 0.5 mg PO QPM [facility] Last Admin: 09/08/20 21:18 Dose: 0.5 mg Documented by: Aspirin (Aspirin Chew 81 Mg Tablet) 81 mg PO DAILY [facility] Last Admin: 09/09/20 08:19 Dose: 81 mg Documented by: Atorvastatin Calcium (Atorvastatin 40 Mg Tablet) 40 mg PO QPM [facility] Last Admin: 09/08/20 21:18 Dose: 40 mg Documented by: Azithromycin (Azithromycin 250 Mg Tablet) 250 mg PO DAILY [facility] Stop: 09/13/20 09:01 Enoxaparin Sodium (Enoxaparin 40 Mg/0.4 Ml Syringe) 40 mg SUBQ DAILY [facility] Last Admin: 09/09/20 08:29 Dose: 40 mg Documented by: Finasteride (Finasteride 5 Mg Tablet) 5 mg PO DAILY [facility] Last Admin: 09/09/20 08:20 Dose: 5 mg Documented by: Furosemide (Furosemide 40 Mg Tablet) 40 mg PO DAILY [facility] Cefazolin Sodium 1 gm/ Sodium (Chloride) 100 mls @ 200 mls/hr IV Q8H [facility] Last Admin: 09/09/20 12:08 Dose: Not Given Documented by: Levetiracetam (Levetiracetam 250 Mg Tablet) 750 mg PO BID [facility] Last Admin: 09/09/20 08:17 Dose: 750 mg Documented by: Metoprolol Succinate (Metoprolol Succinate 25 Mg Tablet) 25 mg PO BID [facility] Last Admin: 09/09/20 08:21 Dose: 25 mg Documented by: Multivitamins/Minerals (Multivitamin W/Minerals Tablet) 1 tab PO DAILYWM [facility] Last Admin: 09/09/20 12:07 Dose: 1 tab Documented by: Oxycodone HCl (Oxycodone 5 Mg Tablet) 5 mg PO Q4HR PRN PRN Reason: PAIN Last Admin: 09/09/20 16:04 Dose: 5 mg Documented by: Polyethylene Glycol (Polyethylene Glycol 3350 17 Gm Packet) 17 gm PO DAILY [facility] Last Admin: 09/09/20 08:25 Dose: 17 gm Documented by: Potassium Chloride (Potassium Chloride 20 Meq Tablet) 40 meq PO DAILY [facility] Last Admin: 09/09/20 08:17 Dose: 40 meq Documented by: Sodium Chloride (Sodium Chloride Flush 0.9% 10 Ml Syringe) 10 ml IVP PRN PRN PRN Reason: NEEDED PER PROVIDER ORDERS Last Admin: 09/04/20 06:04 Dose: 10 ml Documented by: Sodium Chloride (Sodium Chloride Flush 0.9% 10 Ml Syringe) 10 ml IVP 0100,0900,1700 [facility] Last Admin: 09/09/20 09:48 Dose: 10 ml Documented by: Aspirin 81 mg PO DAILY 06/04/18 Potassium Chloride 40 meq PO DAILY 06/04/18 Umeclidinium Brm/Vilanterol Tr [Anoro Ellipta 62.5-25 Mcg INH] 1 puffs INH DAILY 06/04/18 Warfarin [Coumadin] 5 mg PO DAILY 06/04/18 ALPRAZolam [Alprazolam] 0.5 mg PO QPM 06/05/18 Albuterol 2.5 mg INH Q6H PRN 06/05/18 Finasteride 5 mg PO DAILY 06/05/18 Hydrocodone/Acetaminophen [Hydrocodone-Acetamin 5-325 mg] 1 tab PO TID PRN 06/05/18 Tamsulosin [Flomax] 0.4 mg PO 1730 06/05/18 Atorvastatin Calcium 40 mg PO DAILY PM 02/09/20 Furosemide 60 mg ORAL DAILY 02/09/20 Ipratropium/Albuterol [Duoneb] 3 ml INH Q6H PRN 02/09/20 Levetiracetam [Keppra] 750 mg PO BID 02/09/20 Metoprolol Succinate 50 mg PO BID 02/09/20 lisinopriL [Zestril] 5 mg ORAL DAILY 02/09/20
[2020-09-09 16:38] LABS: FOLATE 9.86 ng/mL (5.90 - >24.8)
[2020-09-09] MEDS: ALPRAZolam 0.25 MG TABLET PO SCH (20:35)
[2020-09-09] MEDS: ATORVASTATIN 40 MG TABLET PO SCH (20:35)
[2020-09-10] MEDS: SODIUM CHLORIDE FLUSH 0.9% 10 ML SYRINGE IVP SCH ×3 (00:44→17:51)
[2020-09-10] MEDS: ceFAZolin 1 GM in SODIUM CHLORIDE 0.9% MINIBAG 100 ML IV SCH ×3 (01:58→17:58)
[2020-09-10] MEDS: oxyCODONE 5 MG TABLET PO PRN ×3 (02:02→19:25)
[2020-09-10] MEDS: ACETAMINOPHEN 500 MG TABLET PO SCH ×3 (05:08→21:17)
[2020-09-10 05:36] LABS: BASOPHILS % (AUTO) 0.5 %; EOSINOPHILS # (AUTO) 0.1 10^3/uL (0.0-0.7); EOSINOPHILS % (AUTO) 1.6 %; HCT - HEMATOCRIT 37.5 % (42.0-52.0); HGB - HEMOGLOBIN 12.3 g/dL (14.0-18.0); LYMPHOCYTES % (AUTO) 11.5 %; MEAN CORPUSCULAR HEMOGLOBIN 33.2 pg (27.0-31.0); MEAN CORPUSCULAR HGB CONC 32.8 g/dL (32.0-36.0); MEAN CORPUSCULAR VOLUME 101.4 fL (80.0-94.0); MEAN PLATELET VOLUME 12.3 fL (7.4-11.4); MONOCYTES # (AUTO) 0.8 10^3/uL (0.0-1.0); MONOCYTES % (AUTO) 8.9 %; NEUTROPHILS # (AUTO) 6.7 10^3/uL (1.5-6.6); NEUTROPHILS % (AUTO) 77.3 %; PLT - PLATELET COUNT 156 10^3/uL (130-450); RED CELL DISTRIBUTION WIDTH 14.4 % (12.0-15.0); WHITE BLOOD COUNT 8.7 x10^3/uL (4.8-10.8)
[2020-09-10 05:41] LABS: INR 1.4 (0.8-1.2); PT - PROTHROMBIN TIME 15.2 secs (9.9-12.6)
[2020-09-10 05:47] LABS: CALCIUM 8.9 mg/dL (8.5-10.3); CREATININE 0.5 mg/dL (0.6-1.2); POTASSIUM 3.9 mmol/L (3.5-5.0)
[2020-09-10] MEDS ORDERED: FUROSEMIDE 40 MG TABLET PO SCH (09:00)
[2020-09-10] MEDS: FINASTERIDE 5 MG TABLET PO SCH (09:16)
[2020-09-10] MEDS: POTASSIUM CHLORIDE 20 MEQ TABLET PO SCH (09:16)
[2020-09-10] MEDS: AZITHROMYCIN 250 MG TABLET PO SCH (09:17)
[2020-09-10] MEDS: levETIRAcetam 250 MG TABLET PO SCH ×2 (09:17→21:17)
[2020-09-10] MEDS: MULTIVITAMIN W/MINERALS TABLET PO SCH (09:17)
[2020-09-10] MEDS: ASPIRIN CHEW 81 MG TABLET PO SCH (09:17)
[2020-09-10] MEDS: polyethylene glycoL 3350 17 GM PACKET PO SCH (09:18)
[2020-09-10] MEDS: ENOXAPARIN 40 MG/0.4 ML SYRINGE SUBQ SCH (09:19)
[2020-09-10] MEDS: METOPROLOL SUCCINATE 25 MG TABLET PO SCH ×2 (10:34→21:17)
[2020-09-10] MEDS ORDERED: SODIUM CHLORIDE 0.9% 1,000 ML IV ONE (11:29)
[2020-09-10] MEDS ORDERED: SODIUM CHLORIDE 0.9% 500 ML IV ONE ×2 (13:00→13:53)
--- NOTE | 2020-09-10 13:56 | PROVIDER PROGRESS NOTE ---
Assessment/Plan - Problem List (1) Hypotension Assessment/Plan: Patient present hypotension and his systolic hypertension at 86. order 500 cc bolus normal saline, hold all patient blood pressure medicine, Patient sitting the chair with asymptomatic without dizziness, or chest pain, or palpitation, will be asked patient returning to bed, laying down With supine position, will recheck BP and followup. pt's troponin is negative for acute TX. (2) wound Ulcer of left ankle Assessment/Plan: 129, drainage In the bag is significantly reduced. Discussed with surgeon, surgeon will do patient's First wound dress change. Wound Cultures are pending, We will continue physical therapist, continue antibiotics 09/09 status post of Low-tension primary closure after tib-fib partial resection and wound care, drainage bag, followup with surgeon's recommendation for antibi otics, and followup with wound culture as well. continue PT/OT, continue incentive spiromenter. 127, Patient INI is 2.1 today morning, although pt was not given Coumadin. Surgeon Dr. Garcia ask patient to have vitamin K, And frozen plasma. Patient was given vitamin K and frozen plasma, recheck INR is 1.6, We will follow up after patient has the procedure. Consult with surgeon for the wound care, Plan tomorrow plan to do surgery for patient. Patient is INR of 2.2, will hold the Coumadin. order EKG. order ECHO, pt has previous ECHO shown normal EF, and right side heart abnormal pressure. CECI criteria show 6.6% Estimated rate of Myocardial ischemia, pulmonary edema, ventricular fibrillation, cardiac arrest or complete cardiac block (3) Fibula fracture 09/10, Continue physical therapist evaluation and treatment, emphasized and education to the patient for prevention of joint contraction. Consult with orthopedic surgeon, X-ray was ordered by orthopedics and will follow up, Continue PT and OT. (4) Pressure ulcer of left hip, stage 1 Impression: Continue with frequent turns and dressing changes, Continue nurse care (5) Atrial fibrillation Impression: 129, discussed with the surgeon, surgeon recommended still use Lovenox and hold Coumadin on today 09/09 will continue hold Coumadin now per surgeon's recommendation to prevention of bleeding status post of procedure. will continue check PT/INR, lovenox is order for pt now. Heart rate controlled. hold home Coumadin today for Tomorrow surgery. Continue metoprolol. Continue INR checks (6) History of stroke with current residual effects Impression: 09-10 Continue physical therapist, prevention joint contraction Stable. hold Coumadin and continue statin. (7) History of seizure disorder Impression: Stable. Continue Keppra. (8)pneumonia Patient present tachypnea, oxygen saturation reduce, With mild cough. X-rays s how patient has atypical pneumonia, will check Covid 19 check, add Azithromycin, Plus Ancef for Treatment (3) Fibula fracture Qualifiers: Encounter type: initial encounter Fibula location: proximal Fracture type : closed Fracture morphology: unspecified fracture morphology Laterality: left Qualified Code(s): S82.832A - Other fracture of upper and lower end of left fibula, initial encounter for closed fracture - Current Meds Current Meds: Current Medications Generic Name Dose Route Start Last Admin Trade Name Freq PRN Reason Stop Dose Admin Acetaminophen 1,000 mg 09/04/20 22:00 09/10/20 13:31 Acetaminophen 500 Mg Tablet PO 1,000 mg TID RAUL Administration Albuterol/Ipratropium 3 ml 09/04/20 17:01 09/10/20 09:32 Ipratropium/Albuterol 3 Ml Neb INH 3 ml Q4HR PRN Administration Wheezing Alprazolam 0.5 mg 09/04/20 21:00 09/09/20 20:35 Alprazolam 0.25 Mg Tablet PO 0.5 mg QPM RAUL Administration Aspirin 81 mg 09/03/20 09:00 09/10/20 09:17 Aspirin Chew 81 Mg Tablet PO 81 mg DAILY RAUL Administration Atorvastatin Calcium 40 mg 09/04/20 21:00 09/09/20 20:35 Atorvastatin 40 Mg Tablet PO 40 mg QPM RAUL Administration Azithromycin 250 mg 09/10/20 09:00 09/10/20 09:17 Azithromycin 250 Mg Tablet PO 09/13/20 09:01 250 mg DAILY RAUL Administration Enoxaparin Sodium 40 mg 09/09/20 09:00 09/10/20 09:19 Enoxaparin 40 Mg/0.4 Ml Syringe SUBQ 40 mg DAILY RAUL Administration Finasteride 5 mg 09/03/20 09:00 09/10/20 09:16 Finasteride 5 Mg Tablet PO 5 mg DAILY RAUL Administration Cefazolin Sodium 1 gm/ Sodium 100 mls @ 200 mls/hr 09/08/20 18:00 09/10/20 12:09 Chloride IV Infused Q8H RAUL Infusion Levetiracetam 750 mg 09/03/20 09:00 09/10/20 09:17 Levetiracetam 250 Mg Tablet PO 750 mg BID RAUL Administration Multivitamins/Minerals 1 tab 09/09/20 10:00 09/10/20 09:17 Multivitamin W/Minerals Tablet PO 1 tab DAILYWM RAUL Administration Oxycodone HCl 5 mg 09/04/20 18:27 09/10/20 09:18 Oxycodone 5 Mg Tablet PO 5 mg Q4HR PRN Administration PAIN Polyethylene Glycol 17 gm 09/08/20 09:00 09/10/20 09:18 Polyethylene Glycol 3350 17 Gm Packet PO 17 gm DAILY RAUL Administration Potassium Chloride 40 meq 09/03/20 09:00 09/10/20 09:16 Potassium Chloride 20 Meq Tablet PO 40 meq DAILY RAUL Administration Sodium Chloride 10 ml 09/03/20 14:34 09/04/20 06:04 Sodium Chloride Flush 0.9% 10 Ml Syringe IVP 10 ml PRN PRN Administration NEEDED PER PROVIDER ORDERS Sodium Chloride 10 ml 09/03/20 17:00 09/10/20 09:22 Sodium Chloride Flush 0.9% 10 Ml Syringe IVP 10 ml 0100,0900,1700 RAUL Administration - Lab Result Fish Bone Diagrams: 09/10/20 05:20 09/10/20 05:20 - Additional Planning My Orders: My Active Orders 09/10/20 09:00 Azithromycin [Zithromax] 250 mg PO DAILY 09/10/20 13:53 Sodium Chloride 0.9% [Normal Saline 0.9%] 500 ml IV ONCE 09/11/20 05:00 BMP - BASIC METABOLIC PANEL [CHEM] DAILYLAB CBC - COMP BLD CT W/AUTO DIFF [HEME] DAILYLAB PT WITH INR [COAG] DAILYLAB 09/12/20 05:00 BMP - BASIC METABOLIC PANEL [CHEM] DAILYLAB CBC - COMP BLD CT W/AUTO DIFF [HEME] DAILYLAB PT WITH INR [COAG] DAILYLAB Subjective - Subjective Patient Reports: Feeling Better Objective Vital Signs: Vital Signs - 24 hr 09/09/20 09/09/20 09/09/20 16:24 16:32 20:36 Temperature 36.4 C L 36.4 C L Heart Rate 90 Heart Rate [ 90 Brachial] Heart Rate [ 93 Radial] Respiratory 16 16 Rate Blood Pressure 122/82 H [Left Brachial artery] Blood Pressure 107/73 [Right Brachial artery] O2 Saturation 96 96 09/10/20 09/10/20 09/10/20 01:00 09:00 09:32 Temperature 36.6 C 36.2 C L Heart Rate 97 Heart Rate [ 96 Brachial] Heart Rate [ 98 Radial] Respiratory 18 18 22 Rate Blood Pressure [Left Brachial artery] Blood Pressure 125/83 H 104/82 H [Right Brachial artery] O2 Saturation 93 92 09/10/20 09/10/20 09:45 13:03 Temperature Heart Rate Heart Rate [ 98 107 H Brachial] Heart Rate [ Radial] Respiratory Rate Blood Pressure [Left Brachial artery] Blood Pressure 86/54 L 85/48 L [Right Brachial artery] O2 Saturation Oxygen O2 Source Nasal cannula I&O (Last 24 Hrs): Intake and Output Totals x24h 09/08/20 09/09/20 09/10/20 23:59 23:59 23:59 Intake Total 1800 4633 520 Output Total 1185 745 15 Balance 615 3888 505 General: Alert, Oriented x3, No acute distress HEENT: Atraumatic Neck: Supple Lymphatic: no adenopathy Neuro: Alert, Oriented Times 3 Cardiovascular: Regular rate, Normal S1, Normal S2 Respiratory: Chest non-tender, No respiratory distress Abdomen: Normal bowel sounds, Soft, No tenderness - Results Results: Laboratory Results WBC 8.7 x10^3/uL (4.8-10.8) 09/10/20 05:20 RBC 3.70 10^6/uL (4.70-6.10) L 09/10/20 05:20 Hgb 12.3 g/dL (14.0-18.0) L 09/10/20 05:20 Hct 37.5 % (42.0-52.0) L 09/10/20 05:20 MCV 101.4 fL (80.0-94.0) H 09/10/20 05:20 MCH 33.2 pg (27.0-31.0) H 09/10/20 05:20 MCHC 32.8 g/dL (32.0-36.0) 09/10/20 05:20 RDW 14.4 % (12.0-15.0) 09/10/20 05:20 Plt Count 156 10^3/uL (130-450) 09/10/20 05:20 MPV 12.3 fL (7.4-11.4) H 09/10/20 05:20 Neut # (Auto) 6.7 10^3/uL (1.5-6.6) H 09/10/20 05:20 Lymph # (Auto) 1.0 10^3/uL (1.5-3.5) L 09/10/20 05:20 Rains # (Auto) 0.8 10^3/uL (0.0-1.0) 09/10/20 05:20 Eos # (Auto) 0.1 10^3/uL (0.0-0.7) 09/10/20 05:20 Baso # (Auto) 0.0 10^3/uL (0.0-0.1) 09/10/20 05:20 Absolute Nucleated RBC 0.00 x10^3/uL 09/10/20 05:20 Nucleated RBC % 0.0 /100WBC 09/10/20 05:20 Platelet Estimate DECREASED (<130,000) (NORMAL) 09/09/20 04:39 PT 15.2 secs (9.9-12.6) H 09/10/20 05:20 INR 1.4 (0.8-1.2) H 09/10/20 05:20 Sodium 136 mmol/L (135-145) 09/10/20 05:20 Potassium 3.9 mmol/L (3.5-5.0) 09/10/20 05:20 Chloride 103 mmol/L (101-111) 09/10/20 05:20 Carbon Dioxide 23 mmol/L (21-32) 09/10/20 05:20 Anion Gap 10.0 (6-13) 09/10/20 05:20 BUN 17 mg/dL (6-20) 09/10/20 05:20 Creatinine 0.5 mg/dL (0.6-1.2) L 09/10/20 05:20 Estimated GFR (MDRD) 167 (>89) 09/10/20 05:20 Glucose 115 mg/dL (70-100) H 09/10/20 05:20 Calcium 8.9 mg/dL (8.5-10.3) 09/10/20 05:20 Total Bilirubin 2.4 mg/dL (0.2-1.0) H 09/01/20 16:30 AST 52 IU/L (10-42) H 09/01/20 16:30 ALT 55 IU/L (10-60) 09/01/20 16:30 Alkaline Phosphatase 100 IU/L (42-121) 09/01/20 16:30 Troponin I High Sens 24.3 ng/L (2.3-19.7) H* 09/10/20 11:25 Total Protein 7.5 g/dL (6.7-8.2) 09/01/20 16:30 Albumin 3.5 g/dL (3.2-5.5) 09/01/20 16:30 Globulin 4.0 g/dL (2.1-4.2) 09/01/20 16:30 Albumin/Globulin Ratio 0.9 (1.0-2.2) L 09/01/20 16:30 Lipase 35 U/L (22-51) 09/01/20 16:30 Vitamin B12 387 pg/mL (180-914) 09/09/20 04:39 Folate 9.86 ng/mL (5.90 - >24.8) 09/09/20 04:39 Urine Color YELLOW 09/01/20 23:32 Urine Clarity CLEAR (CLEAR) 09/01/20 23:32 Urine pH 5.5 PH (5.0-7.5) 09/01/20 23:32 Ur Specific [place] 1.025 (1.002-1.030) 09/01/20 23:32 Urine Protein NEGATIVE mg/dL (NEGATIVE) 09/01/20 23:32 Urine Glucose (UA) NEGATIVE mg/dL (NEGATIVE) 09/01/20 23:32 Urine Ketones NEGATIVE mg/dL (NEGATIVE) 09/01/20 23:32 Urine Occult Blood TRACE-LYSE (NEGATIVE) 09/01/20 23:32 Urine Nitrite NEGATIVE (NEGATIVE) 09/01/20 23:32 Urine Bilirubin NEGATIVE (NEGATIVE) 09/01/20 23:32 Urine Urobilinogen 1 (NORMAL) E.U./dL (NORMAL) 09/01/20 23:32 Ur Leukocyte Esterase NEGATIVE (NEGATIVE) 09/01/20 23:32 Ur Microscopic Review NOT INDICATED 09/01/20 23:32 Urine Culture Comments NOT INDICATED 09/01/20 23:32 Nasal Adenovirus (PCR) NOT DETECTED 09/03/20 18:10 Nasal B. parapertussis DNA (PCR) NOT DETECTED 09/03/20 18:10 Nasal Coronavir 229E PCR NOT DETECTED 09/03/20 18:10 Nasal Coronavir HKU1 PCR NOT DETECTED 09/03/20 18:10 Nasal Coronavir NL63 PCR NOT DETECTED 09/03/20 18:10 Nasal Coronavir OC43 PCR NOT DETECTED 09/03/20 18:10 Nasal Enterovir/Rhinovir PCR NOT DETECTED 09/03/20 18:10 Nasal Influenza B PCR NOT DETECTED 09/03/20 18:10 Nasal Influenza A PCR NOT DETECTED 09/03/20 18:10 Nasal Parainfluen 1 PCR NOT DETECTED 09/03/20 18:10 Nasal Parainfluen 2 PCR NOT DETECTED 09/03/20 18:10 Nasal Parainfluen 3 PCR NOT DETECTED 09/03/20 18:10 Nasal Parainfluen 4 PCR NOT DETECTED 09/03/20 18:10 Nasal RSV (PCR) NOT DETECTED 09/03/20 18:10 Nasal B.pertussis DNA PCR NOT DETECTED 09/03/20 18:10 Nasal C.pneumoniae (PCR) NOT DETECTED 09/03/20 18:10 [place] Human Metapneumo PCR NOT DETECTED 09/03/20 18:10 Nasal M.pneumoniae (PCR) NOT DETECTED 09/03/20 18:10 Nasal SARS-CoV-2 (PCR) NOT DETECTED 09/03/20 18:10 Coronavirus (PCR) NEGATIVE 09/09/20 16:30 Blood Type A POSITIVE 09/08/20 08:40 Blood Type Recheck A POSITIVE 09/08/20 05:00 Antibody Screen NEGATIVE 09/08/20 08:40 ABX Reporting Has patient been on IV antibiotics over the past 48 hours?: Yes Current Medications - Current Medications Current Medications: Active Medications Acetaminophen (Acetaminophen 500 Mg Tablet) 1,000 mg PO TID RAUL Last Admin: 09/10/20 13:31 Dose: 1,000 mg Documented by: Albuterol/Ipratropium (Ipratropium/Albuterol 3 Ml Neb) 3 ml INH Q4HR PRN PRN Reason: Wheezing Last Admin: 09/10/20 09:32 Dose: 3 ml Documented by: Alprazolam (Alprazolam 0.25 Mg Tablet) 0.5 mg PO QPM [facility] Last Admin: 09/09/20 20:35 Dose: 0.5 mg Documented by: Aspirin (Aspirin Chew 81 Mg Tablet) 81 mg PO DAILY [facility] Last Admin: 09/10/20 09:17 Dose: 81 mg Documented by: Atorvastatin Calcium (Atorvastatin 40 Mg Tablet) 40 mg PO QPM [facility] Last Admin: 09/09/20 20:35 Dose: 40 mg Documented by: Azithromycin (Azithromycin 250 Mg Tablet) 250 mg PO DAILY [facility] Stop: 09/13/20 09:01 Last Admin: 09/10/20 09:17 Dose: 250 mg Documented by: Enoxaparin Sodium (Enoxaparin 40 Mg/0.4 Ml Syringe) 40 mg SUBQ DAILY [facility] Last Admin: 09/10/20 09:19 Dose: 40 mg Documented by: Finasteride (Finasteride 5 Mg Tablet) 5 mg PO DAILY [facility] Last Admin: 09/10/20 09:16 Dose: 5 mg Documented by: Cefazolin Sodium 1 gm/ Sodium (Chloride) 100 mls @ 200 mls/hr IV Q8H [facility] Last Infusion: 09/10/20 12:09 Dose: Infused Documented by: Sodium Chloride (Normal Saline 0.9%) 500 mls @ 999 mls/hr IV ONCE ONE Stop: 09/10/20 14:23 Levetiracetam (Levetiracetam 250 Mg Tablet) 750 mg PO BID [facility] Last Admin: 09/10/20 09:17 Dose: 750 mg Documented by: Multivitamins/Minerals (Multivitamin W/Minerals Tablet) 1 tab PO DAILYWM [facility] Last Admin: 09/10/20 09:17 Dose: 1 tab Documented by: Oxycodone HCl (Oxycodone 5 Mg Tablet) 5 mg PO Q4HR PRN PRN Reason: PAIN Last Admin: 09/10/20 09:18 Dose: 5 mg Documented by: Polyethylene Glycol (Polyethylene Glycol 3350 17 Gm Packet) 17 gm PO DAILY [facility] Last Admin: 09/10/20 09:18 Dose: 17 gm Documented by: Potassium Chloride (Potassium Chloride 20 Meq Tablet) 40 meq PO DAILY [facility] Last Admin: 09/10/20 09:16 Dose: 40 meq Documented by: Saccharomyces Boulardii (Saccharomyces Boulardii 250 Mg Capsule) 250 mg PO BIDWM [facility] Sodium Chloride (Sodium Chloride Flush 0.9% 10 Ml Syringe) 10 ml IVP PRN PRN PRN Reason: NEEDED PER PROVIDER ORDERS Last Admin: 09/04/20 06:04 Dose: 10 ml Documented by: Sodium Chloride (Sodium Chloride Flush 0.9% 10 Ml Syringe) 10 ml IVP 0100,0900,1700 RAUL Last Admin: 09/10/20 09:22 Dose: 10 ml Documented by: Aspirin 81 mg PO DAILY 06/04/18 Potassium Chloride 40 meq PO DAILY 06/04/18 Umeclidinium Brm/Vilanterol Tr [Anoro Ellipta 62.5-25 Mcg INH] 1 puffs INH DAILY 06/04/18 Warfarin [Coumadin] 5 mg PO DAILY 06/04/18 ALPRAZolam [Alprazolam] 0.5 mg PO QPM 06/05/18 Albuterol 2.5 mg INH Q6H PRN 06/05/18 Finasteride 5 mg PO DAILY 06/05/18 Hydrocodone/Acetaminophen [Hydrocodone-Acetamin 5-325 mg] 1 tab PO TID PRN 06/05/18 Tamsulosin [Flomax] 0.4 mg PO 1730 06/05/18 Atorvastatin Calcium 40 mg PO DAILY PM 02/09/20 Furosemide 60 mg ORAL DAILY 02/09/20 Ipratropium/Albuterol [Duoneb] 3 ml INH Q6H PRN 02/09/20 Levetiracetam [Keppra] 750 mg PO BID 02/09/20 Metoprolol Succinate 50 mg PO BID 02/09/20 lisinopriL [Zestril] 5 mg ORAL DAILY 02/09/20
[2020-09-10] MEDS: SODIUM CHLORIDE FLUSH 0.9% 10 ML SYRINGE IVP PRN (14:16)
[2020-09-10] MEDS: SACCHAROMYCES BOULARDII 250 MG CAPSULE PO SCH (17:49)
[2020-09-10] MEDS ORDERED: METOPROLOL SUCCINATE 25 MG TABLET PO SCH (21:00)
[2020-09-10] MEDS: ALPRAZolam 0.25 MG TABLET PO SCH (21:17)
[2020-09-10] MEDS: ATORVASTATIN 40 MG TABLET PO SCH (21:17)
[2020-09-11] MEDS: ceFAZolin 1 GM in SODIUM CHLORIDE 0.9% MINIBAG 100 ML IV SCH ×3 (02:21→18:34)
[2020-09-11] MEDS: SODIUM CHLORIDE FLUSH 0.9% 10 ML SYRINGE IVP SCH ×3 (02:26→19:04)
[2020-09-11] MEDS: SODIUM CHLORIDE FLUSH 0.9% 10 ML SYRINGE IVP PRN (03:24)
[2020-09-11] MEDS: oxyCODONE 5 MG TABLET PO PRN ×2 (04:55→14:30)
[2020-09-11] MEDS: ACETAMINOPHEN 500 MG TABLET PO SCH ×3 (05:00→21:23)
[2020-09-11 05:24] LABS: BASOPHILS # (AUTO) 0.1 10^3/uL (0.0-0.1); BASOPHILS % (AUTO) 0.7 %; EOSINOPHILS # (AUTO) 0.2 10^3/uL (0.0-0.7); EOSINOPHILS % (AUTO) 2.4 %; HCT - HEMATOCRIT 33.6 % (42.0-52.0); HGB - HEMOGLOBIN 10.7 g/dL (14.0-18.0); LYMPHOCYTES % (AUTO) 14.3 %; MEAN CORPUSCULAR HEMOGLOBIN 32.4 pg (27.0-31.0); MEAN CORPUSCULAR HGB CONC 31.8 g/dL (32.0-36.0); MEAN CORPUSCULAR VOLUME 101.8 fL (80.0-94.0); MEAN PLATELET VOLUME 12.2 fL (7.4-11.4); MONOCYTES # (AUTO) 0.7 10^3/uL (0.0-1.0); MONOCYTES % (AUTO) 9.1 %; NEUTROPHILS # (AUTO) 5.2 10^3/uL (1.5-6.6); NEUTROPHILS % (AUTO) 73.4 %; PLT - PLATELET COUNT 161 10^3/uL (130-450); RED CELL DISTRIBUTION WIDTH 14.5 % (12.0-15.0); WHITE BLOOD COUNT 7.1 x10^3/uL (4.8-10.8)
[2020-09-11 05:39] LABS: CALCIUM 8.7 mg/dL (8.5-10.3); CREATININE 0.5 mg/dL (0.6-1.2); POTASSIUM 3.8 mmol/L (3.5-5.0)
[2020-09-11 05:56] LABS: INR 1.4 (0.8-1.2); PT - PROTHROMBIN TIME 15.2 secs (9.9-12.6)
--- NOTE | 2020-09-11 06:30 | PROVIDER PROGRESS NOTE ---
Assessment/Plan - Problem List (1) Hypotension Assessment/Plan: Resolved. This was likely due to volume depletion. Patient is currently normotensive 112/82. He was given 1 bolus of IV hydration yesterday (2) Ulcer of left ankle Assessment/Plan: Patient is status post low tension primary closure after a tib-fib partial resection. The leg is currently wrapped in bandage. There is VERA drainage tube in place. General surgery following. Patient is on Ancef (3) Fibula fracture Qualifiers: Encounter type: initial encounter Fibula location: proximal Fracture type: closed Fracture morphology: unspecified fracture morphology Laterality: left Qualified Code(s): S82.832A - Other fracture of upper and lower end of left fibula, initial encounter for closed fracture Assessment/Plan: PT/OT. (4) Pressure ulcer of left hip, stage 1 Assessment/Plan: Frequent turns and wound dressing changes. (5) Atrial fibrillation Qualifiers: Atrial fibrillation type: unspecified Qualified Code(s): I48.91 - Unspecified atrial fibrillation Assessment/Plan: On metoprolol succinate 25 mg p.o. twice daily. Patient is on Coumadin 5 mg p.o. daily. However this was hold in anticipation of wound cleaning/debridement by general surgery. Patient's INR was 1.4 today. (6) History of stroke with current residual effects Assessment/Plan: PT OT to evaluate and treat patient. (7) Pneumonia Qualifiers: Pneumonia type: due to unspecified organism Laterality: bilateral Lung location: unspecified part of lung Qualified Code(s): J18.9 - Pneumonia, unspecified organism Assessment/Plan: Patient is on cefazolin and azithromycin. Will continue. (8) Seizure Assessment/Plan: On Keppra 750 mg p.o. twice daily. - Current Meds Current Meds: Current Medications Generic Name Dose Route Start Last Admin Trade Name Freq PRN Reason Stop Dose Admin Acetaminophen 1,000 mg 09/04/20 22:00 09/11/20 05:00 Acetaminophen 500 Mg Tablet PO 1,000 mg TID RAUL Administration Albuterol/Ipratropium 3 ml 09/04/20 17:01 09/10/20 09:32 Ipratropium/Albuterol 3 Ml Neb INH 3 ml Q4HR PRN Administration Wheezing Alprazolam 0.5 mg 09/04/20 21:00 09/10/20 21:17 Alprazolam 0.25 Mg Tablet PO 0.5 mg QPM RAUL Administration Aspirin 81 mg 09/03/20 09:00 09/10/20 09:17 Aspirin Chew 81 Mg Tablet PO 81 mg DAILY RAUL Administration Atorvastatin Calcium 40 mg 09/04/20 21:00 09/10/20 21:17 Atorvastatin 40 Mg Tablet PO 40 mg QPM RAUL Administration Azithromycin 250 mg 09/10/20 09:00 09/10/20 09:17 Azithromycin 250 Mg Tablet PO 09/13/20 09:01 250 mg DAILY RAUL Administration Enoxaparin Sodium 40 mg 09/09/20 09:00 09/10/20 09:19 Enoxaparin 40 Mg/0.4 Ml Syringe SUBQ 40 mg DAILY RAUL Administration Finasteride 5 mg 09/03/20 09:00 09/10/20 09:16 Finasteride 5 Mg Tablet PO 5 mg DAILY RAUL Administration Cefazolin Sodium 1 gm/ Sodium 100 mls @ 200 mls/hr 09/08/20 18:00 09/11/20 02:51 Chloride IV Infused Q8H RAUL Infusion Levetiracetam 750 mg 09/03/20 09:00 09/10/20 21:17 Levetiracetam 250 Mg Tablet PO 750 mg BID RAUL Administration Metoprolol Succinate 25 mg 09/10/20 21:00 09/10/20 21:17 Metoprolol Succinate 25 Mg Tablet PO 25 mg BID RAUL Administration Multivitamins/Minerals 1 tab 09/09/20 10:00 09/10/20 09:17 Multivitamin W/Minerals Tablet PO 1 tab DAILYWM RAUL Administration Oxycodone HCl 5 mg 09/04/20 18:27 09/11/20 04:55 Oxycodone 5 Mg Tablet PO 5 mg Q4HR PRN Administration PAIN Polyethylene Glycol 17 gm 09/08/20 09:00 09/10/20 09:18 Polyethylene Glycol 3350 17 Gm Packet PO 17 gm DAILY RAUL Administration Potassium Chloride 40 meq 09/03/20 09:00 09/10/20 09:16 Potassium Chloride 20 Meq Tablet PO 40 meq DAILY RAUL Administration Saccharomyces Boulardii 250 mg 09/10/20 17:00 09/10/20 17:49 Saccharomyces Boulardii 250 Mg Capsule PO 250 mg BIDWM RAUL Administration Sodium Chloride 10 ml 09/03/20 14:34 09/11/20 03:24 Sodium Chloride Flush 0.9% 10 Ml Syringe IVP 10 ml PRN PRN Administration NEEDED PER PROVIDER ORDERS Sodium Chloride 10 ml 09/03/20 17:00 09/11/20 02:26 Sodium Chloride Flush 0.9% 10 Ml Syringe IVP 10 ml 0100,0900,1700 [facility] Administration - Lab Result Fish Bone Diagrams: 09/11/20 04:14 09/11/20 04:14 Subjective - Subjective Patient Reports: Other (Patient was resting comfortably at time of exam. He denied any complaints of pain. Drainage ball at the site of left foot amputation was appreciable. It was draining serosanguineous fluid.) Objective Vital Signs: Vital Signs - 24 hr 09/10/20 09/10/20 09/10/20 09:00 09:32 09:45 Temperature 36.2 C L Heart Rate 97 Heart Rate [ 98 Brachial] Heart Rate [ 98 Radial] Respiratory 18 22 Rate Blood Pressure [Left Brachial artery] Blood Pressure 104/82 H 86/54 L [Right Brachial artery] O2 Saturation 92 09/10/20 09/10/20 09/10/20 13:03 14:18 15:31 Temperature Heart Rate Heart Rate [ 107 H 99 98 Brachial] Heart Rate [ Radial] Respiratory Rate Blood Pressure 127/83 H [Left Brachial artery] Blood Pressure 85/48 L 89/73 L [Right Brachial artery] O2 Saturation 09/10/20 09/10/20 09/11/20 16:33 22:45 00:15 Temperature 36.8 C 37.3 C Heart Rate 98 Heart Rate [ 98 Brachial] Heart Rate [ 93 Radial] Respiratory 18 18 15 Rate Blood Pressure [Left Brachial artery] Blood Pressure 133/76 H 129/74 [Right Brachial artery] O2 Saturation 94 96 09/11/20 04:53 Temperature Heart Rate Heart Rate [ 85 Brachial] Heart Rate [ Radial] Respiratory Rate Blood Pressure [Left Brachial artery] Blood Pressure 112/82 H [Right Brachial artery] O2 Saturation Oxygen O2 Source CPAP I&O (Last 24 Hrs): Intake and Output Totals x24h 09/09/20 09/10/20 09/11/20 23:59 23:59 23:59 Intake Total 4633 2500 100 Output Total 745 20 450 Balance 3888 2480 -350 General: Alert, Oriented x3, No acute distress HEENT: PERRLA, EOMI Neck: Supple, No JVD Neuro: Alert, Non Focal, Oriented Times 3 Cardiovascular: Regular rate Respiratory: Chest non-tender, No respiratory distress, Breath sounds nml Abdomen: Normal bowel sounds, Soft Extremities: No clubbing, No cyanosis, Other (s/p left foot amputation. left leg wrapped in bandage with VERA drainage in place) Skin: No rashes - Results Results: Laboratory Results WBC 7.1 x10^3/uL (4.8-10.8) 09/11/20 04:14 RBC 3.30 10^6/uL (4.70-6.10) L 09/11/20 04:14 Hgb 10.7 g/dL (14.0-18.0) L 09/11/20 04:14 Hct 33.6 % (42.0-52.0) L 09/11/20 04:14 MCV 101.8 fL (80.0-94.0) H 09/11/20 04:14 MCH 32.4 pg (27.0-31.0) H 09/11/20 04:14 MCHC 31.8 g/dL (32.0-36.0) L 09/11/20 04:14 RDW 14.5 % (12.0-15.0) 09/11/20 04:14 Plt Count 161 10^3/uL (130-450) 09/11/20 04:14 MPV 12.2 fL (7.4-11.4) H 09/11/20 04:14 Neut # (Auto) 5.2 10^3/uL (1.5-6.6) 09/11/20 04:14 Lymph # (Auto) 1.0 10^3/uL (1.5-3.5) L 09/11/20 04:14 [place] # (Auto) 0.7 10^3/uL (0.0-1.0) 09/11/20 04:14 Eos # (Auto) 0.2 10^3/uL (0.0-0.7) 09/11/20 04:14 Baso # (Auto) 0.1 10^3/uL (0.0-0.1) 09/11/20 04:14 Absolute Nucleated RBC 0.00 x10^3/uL 09/11/20 04:14 Nucleated RBC % 0.0 /100WBC 09/11/20 04:14 Platelet Estimate DECREASED (<130,000) (NORMAL) 09/09/20 04:39 PT 15.2 secs (9.9-12.6) H 09/11/20 04:14 INR 1.4 (0.8-1.2) H 09/11/20 04:14 Sodium 135 mmol/L (135-145) 09/11/20 04:14 Potassium 3.8 mmol/L (3.5-5.0) 09/11/20 04:14 Chloride 103 mmol/L (101-111) 09/11/20 04:14 Carbon Dioxide 23 mmol/L (21-32) 09/11/20 04:14 Anion Gap 9.0 (6-13) 09/11/20 04:14 BUN 17 mg/dL (6-20) 09/11/20 04:14 Creatinine 0.5 mg/dL (0.6-1.2) L 09/11/20 04:14 Estimated GFR (MDRD) 167 (>89) 09/11/20 04:14 Glucose 101 mg/dL (70-100) H 09/11/20 04:14 Calcium 8.7 mg/dL (8.5-10.3) 09/11/20 04:14 Total Bilirubin 2.4 mg/dL (0.2-1.0) H 09/01/20 16:30 AST 52 IU/L (10-42) H 09/01/20 16:30 ALT 55 IU/L (10-60) 09/01/20 16:30 Alkaline Phosphatase 100 IU/L (42-121) 09/01/20 16:30 Troponin I High Sens 26.7 ng/L (2.3-19.7) H* 09/10/20 17:28 Total Protein 7.5 g/dL (6.7-8.2) 09/01/20 16:30 Albumin 3.5 g/dL (3.2-5.5) 09/01/20 16:30 Globulin 4.0 g/dL (2.1-4.2) 09/01/20 16:30 Albumin/Globulin Ratio 0.9 (1.0-2.2) L 09/01/20 16:30 Lipase 35 U/L (22-51) 09/01/20 16:30 Vitamin B12 387 pg/mL (180-914) 09/09/20 04:39 Folate 9.86 ng/mL (5.90 - >24.8) 09/09/20 04:39 Urine Color YELLOW 09/01/20 23:32 Urine Clarity CLEAR (CLEAR) 09/01/20 23:32 Urine pH 5.5 PH (5.0-7.5) 09/01/20 23:32 Ur Specific [place] 1.025 (1.002-1.030) 09/01/20 23:32 Urine Protein NEGATIVE mg/dL (NEGATIVE) 09/01/20 23:32 Urine Glucose (UA) NEGATIVE mg/dL (NEGATIVE) 09/01/20 23:32 Urine Ketones NEGATIVE mg/dL (NEGATIVE) 09/01/20 23:32 Urine Occult Blood TRACE-LYSE (NEGATIVE) 09/01/20 23:32 Urine Nitrite NEGATIVE (NEGATIVE) 09/01/20 23:32 Urine Bilirubin NEGATIVE (NEGATIVE) 09/01/20 23:32 Urine Urobilinogen 1 (NORMAL) E.U./dL (NORMAL) 09/01/20 23:32 Ur Leukocyte Esterase NEGATIVE (NEGATIVE) 09/01/20 23:32 Ur Microscopic Review NOT INDICATED 09/01/20 23:32 Urine Culture Comments NOT INDICATED 09/01/20 23:32 Nasal Adenovirus (PCR) NOT DETECTED 09/03/20 18:10 Nasal B. parapertussis DNA (PCR) NOT DETECTED 09/03/20 18:10 Nasal Coronavir 229E PCR NOT DETECTED 09/03/20 18:10 Nasal Coronavir HKU1 PCR NOT DETECTED 09/03/20 18:10 Nasal Coronavir NL63 PCR NOT DETECTED 09/03/20 18:10 Nasal Coronavir OC43 PCR NOT DETECTED 09/03/20 18:10 Nasal Enterovir/Rhinovir PCR NOT DETECTED 09/03/20 18:10 Nasal Influenza B PCR NOT DETECTED 09/03/20 18:10 Nasal Influenza A PCR NOT DETECTED 09/03/20 18:10 Nasal Parainfluen 1 PCR NOT DETECTED 09/03/20 18:10 Nasal Parainfluen 2 PCR NOT DETECTED 09/03/20 18:10 Nasal Parainfluen 3 PCR NOT DETECTED 09/03/20 18:10 Nasal Parainfluen 4 PCR NOT DETECTED 09/03/20 18:10 Nasal RSV (PCR) NOT DETECTED 09/03/20 18:10 Nasal B.pertussis DNA PCR NOT DETECTED 09/03/20 18:10 Nasal C.pneumoniae (PCR) NOT DETECTED 09/03/20 18:10 Guerrero Human Metapneumo PCR NOT DETECTED 09/03/20 18:10 Nasal M.pneumoniae (PCR) NOT DETECTED 09/03/20 18:10 Nasal SARS-CoV-2 (PCR) NOT DETECTED 09/03/20 18:10 Coronavirus (PCR) NEGATIVE 09/09/20 16:30 Blood Type A POSITIVE 09/08/20 08:40 Blood Type Recheck A POSITIVE 09/08/20 05:00 Antibody Screen NEGATIVE 09/08/20 08:40 ABX Reporting Has patient been on IV antibiotics over the past 48 hours?: No
[2020-09-11] MEDS ORDERED: FUROSEMIDE 40 MG TABLET PO SCH (09:00)
[2020-09-11] MEDS ORDERED: FUROSEMIDE 20 MG TABLET PO SCH (09:00)
[2020-09-11] MEDS: SACCHAROMYCES BOULARDII 250 MG CAPSULE PO SCH ×2 (09:09→16:47)
[2020-09-11] MEDS: FINASTERIDE 5 MG TABLET PO SCH (09:09)
[2020-09-11] MEDS: levETIRAcetam 250 MG TABLET PO SCH ×2 (09:09→21:18)
[2020-09-11] MEDS: AZITHROMYCIN 250 MG TABLET PO SCH (09:09)
[2020-09-11] MEDS: POTASSIUM CHLORIDE 20 MEQ TABLET PO SCH (09:09)
[2020-09-11] MEDS: METOPROLOL SUCCINATE 25 MG TABLET PO SCH ×2 (09:10→21:22)
[2020-09-11] MEDS: ASPIRIN CHEW 81 MG TABLET PO SCH (09:10)
[2020-09-11] MEDS: ENOXAPARIN 40 MG/0.4 ML SYRINGE SUBQ SCH (09:10)
[2020-09-11] MEDS: FUROSEMIDE 40 MG TABLET PO SCH (09:10)
[2020-09-11] MEDS: polyethylene glycoL 3350 17 GM PACKET PO SCH (09:10)
[2020-09-11] MEDS: MULTIVITAMIN W/MINERALS TABLET PO SCH (09:10)
[2020-09-11] MEDS: ALPRAZolam 0.25 MG TABLET PO SCH (21:18)
[2020-09-11] MEDS: ATORVASTATIN 40 MG TABLET PO SCH (21:22)
[2020-09-12] MEDS: SODIUM CHLORIDE FLUSH 0.9% 10 ML SYRINGE IVP SCH ×3 (01:29→17:47)
[2020-09-12] MEDS: ceFAZolin 1 GM in SODIUM CHLORIDE 0.9% MINIBAG 100 ML IV SCH ×3 (01:37→17:53)
[2020-09-12] MEDS: SODIUM CHLORIDE FLUSH 0.9% 10 ML SYRINGE IVP PRN (02:50)
[2020-09-12 05:05] LABS: BASOPHILS % (AUTO) 0.6 %; EOSINOPHILS # (AUTO) 0.2 10^3/uL (0.0-0.7); EOSINOPHILS % (AUTO) 3.5 %; HCT - HEMATOCRIT 35.4 % (42.0-52.0); HGB - HEMOGLOBIN 11.3 g/dL (14.0-18.0); LYMPHOCYTES % (AUTO) 14.2 %; MEAN CORPUSCULAR HEMOGLOBIN 33.1 pg (27.0-31.0); MEAN CORPUSCULAR HGB CONC 31.9 g/dL (32.0-36.0); MEAN CORPUSCULAR VOLUME 103.8 fL (80.0-94.0); MEAN PLATELET VOLUME 12.1 fL (7.4-11.4); MONOCYTES # (AUTO) 0.6 10^3/uL (0.0-1.0); MONOCYTES % (AUTO) 8.4 %; PLT - PLATELET COUNT 170 10^3/uL (130-450); RED BLOOD COUNT 3.41 10^6/uL (4.70-6.10); RED CELL DISTRIBUTION WIDTH 14.6 % (12.0-15.0); WHITE BLOOD COUNT 6.8 x10^3/uL (4.8-10.8)
[2020-09-12 05:19] LABS: INR 1.4 (0.8-1.2); PT - PROTHROMBIN TIME 15.1 secs (9.9-12.6)
[2020-09-12 05:28] LABS: CALCIUM 8.8 mg/dL (8.5-10.3); CREATININE 0.6 mg/dL (0.6-1.2); POTASSIUM 4.1 mmol/L (3.5-5.0)
[2020-09-12] MEDS: oxyCODONE 5 MG TABLET PO PRN ×3 (06:19→21:20)
[2020-09-12] MEDS: ACETAMINOPHEN 500 MG TABLET PO SCH ×3 (06:20→21:20)
[2020-09-12] MEDS: MULTIVITAMIN W/MINERALS TABLET PO SCH (08:59)
[2020-09-12] MEDS: SACCHAROMYCES BOULARDII 250 MG CAPSULE PO SCH ×2 (08:59→17:54)
[2020-09-12] MEDS: ASPIRIN CHEW 81 MG TABLET PO SCH (09:00)
[2020-09-12] MEDS: ENOXAPARIN 40 MG/0.4 ML SYRINGE SUBQ SCH (09:00)
[2020-09-12] MEDS: FINASTERIDE 5 MG TABLET PO SCH (09:00)
[2020-09-12] MEDS: METOPROLOL SUCCINATE 25 MG TABLET PO SCH ×2 (09:00→21:33)
[2020-09-12] MEDS: polyethylene glycoL 3350 17 GM PACKET PO SCH (09:00)
[2020-09-12] MEDS: AZITHROMYCIN 250 MG TABLET PO SCH (09:00)
[2020-09-12] MEDS: FUROSEMIDE 40 MG TABLET PO SCH (09:00)
[2020-09-12] MEDS: levETIRAcetam 250 MG TABLET PO SCH ×2 (09:00→21:33)
[2020-09-12] MEDS ORDERED: WARFARIN 5 MG TABLET PO SCH (09:00)
[2020-09-12] MEDS: POTASSIUM CHLORIDE 20 MEQ TABLET PO SCH (09:00)
[2020-09-12 12:54] LABS: B. PARAPERTUSSIS- RESP PCR PAN NOT DETECTED; B. PERTUSSIS- RESP PCR PANEL NOT DETECTED; C. PNEUMONIAE- RESP PCR PANEL NOT DETECTED; CORONAVIRUS 229E-RESP PCR NOT DETECTED; CORONAVIRUS HKU1-RESP PCR NOT DETECTED; CORONAVIRUS NL63-RESP PCR NOT DETECTED; CORONAVIRUS OC43-RESP PCR NOT DETECTED; HUMAN METAPNEUMOVIRUS NOT DETECTED; INFLUENZA A- RESP PCR PANEL NOT DETECTED; INFLUENZA B - RESP PCR PANEL NOT DETECTED; M. PNEUMONIAE- RESP PCR PANEL NOT DETECTED; PARAINFLUENZA VIRUS 1 NOT DETECTED; PARAINFLUENZA VIRUS 2 NOT DETECTED; PARAINFLUENZA VIRUS 3 NOT DETECTED; PARAINFLUENZA VIRUS 4 NOT DETECTED; RHINOVIRUS/ENTEROVIRUS NOT DETECTED; RSV- RESP PCR PANEL NOT DETECTED; SARS-CoV-2 -RESP PCR PANEL NOT DETECTED
--- NOTE | 2020-09-12 18:18 | PROVIDER PROGRESS NOTE ---
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 Drainage has been minimal. Wound was taken down today. Patient still does not have knee immobilizer. Objective Afebrile hemodynamically acceptable General Appearance: positive: No acute distress Eyes Bilateral: positive: Normal inspection ENT: positive: ENT inspection nml Neck: positive: Nml inspection Respiratory: positive: Chest non-tender, No respiratory distress, Breath sounds nml. negative: Wheezes, Rales, Rhonchi Cardiovascular: positive: Regular rate & rhythm Abdomen: positive: No distention, Other. negative: Guarding, Rebound Neurologic/Psychiatric: positive: Oriented x3, CN's nml (2-12) Left lower extremity wound was removed for extensive dressing. The Contreras drain was removed without any complication. The splint was carefully removed and sized to afford its ability to be replaced. Once all the dressing was off the wound was evaluated photograph which is saved into the permanent medical record. Vertical han were intact, clean and dry. Complex closure with vertical mattress sutures along the base of the stump without any ischemic change or other complication. Overall healing exceedingly well. Dressed with Xeroform, 4 x 4 for extensive padding, wrapped multiply with Kerlix, splint replaced, and Mehrdad wrap placed on top. Patient tolerated well. Still awaiting knee immobilizer. Impression/Plan Postoperative day #4 status post Symes amputation stump revision with orthopedics. Wound appears to be healing exceedingly well. Will need regular wound dressings which we can provide through instruction. The patient is in desperate need of a knee immobilizer to afford him long-term ability to continue using his prosthetic which will necessarily need to be revised to accommodate his stump post operative. We will need to see the patient in 1 to 2 weeks for follow-up. Again continue knee immobilizer. Continue QOD dry sterile dressing changes over Xeroform atop the wound. I would also recommend awaiting culture data towards optimizing antibiotic therapy which should continue at least this time with Ancef versus Ampicillin/Augmentin orally. For discharge from a surgical perspective. Please note that voice recognition software was used to transcribe this note and inadvertent errors might persist in spite of review and editing. I am obliged to you for your attention. I am thankful to you for allowing me to participate with you in this care of this patient.
--- NOTE | 2020-09-12 19:21 | PROVIDER PROGRESS NOTE ---
Assessment/Plan - Problem List (1) Hypotension Assessment/Plan: Resolved (2) Ulcer of left ankle Assessment/Plan: Patient is status post low tension primary closure after a tib-fib partial resection. The leg is currently wrapped in bandage. There is VERA drainage tube in place. General surgery following. Patient is on Ancef Patient will be discharged to [facility] tomorrow. (3) Fibula fracture Qualifiers: Encounter type: initial encounter Fibula location: proximal Fracture type: closed Fracture morphology: unspecified fracture morphology Laterality: left Qualified Code(s): S82.832A - Other fracture of upper and lower end of left fibula, initial encounter for closed fracture Assessment/Plan: PT/OT (4) Pressure ulcer of left hip, stage 1 Assessment/Plan: Frequent turns and wound dressing changes. (5) Atrial fibrillation Qualifiers: Atrial fibrillation type: unspecified Qualified Code(s): I48.91 - Unspecified atrial fibrillation Assessment/Plan: On metoprolol succinate 25 mg p.o. twice daily. Patient is on Coumadin 5 mg p.o. daily. However this was hold in anticipation of wound cleaning/debridement by general surgery. Patient's INR was 1.4 today. (7) Pneumonia Qualifiers: Pneumonia type: due to unspecified organism Laterality: bilateral Lung location: unspecified part of lung Qualified Code(s): J18.9 - Pneumonia, unspecified organism Assessment/Plan: Patient is on cefazolin and azithromycin. Will discontinue upon discharge [facility]. (8) Seizure Assessment/Plan: On Keppra 750 mg p.o. twice daily. - Current Meds Current Meds: Current Medications Generic Name Dose Route Start Last Admin Trade Name Freq PRN Reason Stop Dose Admin Acetaminophen 1,000 mg 09/04/20 22:00 09/12/20 13:54 Acetaminophen 500 Mg Tablet PO 1,000 mg TID RAUL Administration Albuterol/Ipratropium 3 ml 09/04/20 17:01 09/10/20 09:32 Ipratropium/Albuterol 3 Ml Neb INH 3 ml Q4HR PRN Administration Wheezing Alprazolam 0.5 mg 09/04/20 21:00 09/11/20 21:18 Alprazolam 0.25 Mg Tablet PO 0.5 mg QPM RAUL Administration Aspirin 81 mg 09/03/20 09:00 09/12/20 09:00 Aspirin Chew 81 Mg Tablet PO 81 mg DAILY RAUL Administration Atorvastatin Calcium 40 mg 09/04/20 21:00 09/11/20 21:22 Atorvastatin 40 Mg Tablet PO 40 mg QPM RAUL Administration Azithromycin 250 mg 09/10/20 09:00 09/12/20 09:00 Azithromycin 250 Mg Tablet PO 09/13/20 09:01 250 mg DAILY RAUL Administration Enoxaparin Sodium 40 mg 09/09/20 09:00 09/12/20 09:00 Enoxaparin 40 Mg/0.4 Ml Syringe SUBQ 40 mg DAILY RAUL Administration Finasteride 5 mg 09/03/20 09:00 09/12/20 09:00 Finasteride 5 Mg Tablet PO 5 mg DAILY RAUL Administration Furosemide 40 mg 09/11/20 09:00 09/12/20 09:00 Furosemide 40 Mg Tablet PO 40 mg DAILY RAUL Administration Cefazolin Sodium 1 gm/ Sodium 100 mls @ 200 mls/hr 09/08/20 18:00 09/12/20 19:03 Chloride IV Infused Q8H RAUL Infusion Levetiracetam 750 mg 09/03/20 09:00 09/12/20 09:00 Levetiracetam 250 Mg Tablet PO 750 mg BID RAUL Administration Metoprolol Succinate 25 mg 09/10/20 21:00 09/12/20 09:00 Metoprolol Succinate 25 Mg Tablet PO 25 mg BID RAUL Administration Multivitamins/Minerals 1 tab 09/09/20 10:00 09/12/20 08:59 Multivitamin W/Minerals Tablet PO 1 tab DAILYWM RAUL Administration Oxycodone HCl 5 mg 09/04/20 18:27 09/12/20 13:55 Oxycodone 5 Mg Tablet PO 5 mg Q4HR PRN Administration PAIN Polyethylene Glycol 17 gm 09/08/20 09:00 09/12/20 09:00 Polyethylene Glycol 3350 17 Gm Packet PO 17 gm DAILY RAUL Administration Potassium Chloride 40 meq 09/03/20 09:00 09/12/20 09:00 Potassium Chloride 20 Meq Tablet PO 40 meq DAILY RAUL Administration Saccharomyces Boulardii 250 mg 09/10/20 17:00 09/12/20 17:54 Saccharomyces Boulardii 250 Mg Capsule PO 250 mg BIDWM RAUL Administration Sodium Chloride 10 ml 09/03/20 14:34 09/12/20 02:50 Sodium Chloride Flush 0.9% 10 Ml Syringe IVP 10 ml PRN PRN Administration NEEDED PER PROVIDER ORDERS Sodium Chloride 10 ml 09/03/20 17:00 09/12/20 17:47 Sodium Chloride Flush 0.9% 10 Ml Syringe IVP 10 ml 0100,0900,1700 [facility] Administration - Lab Result Fish Bone Diagrams: 09/12/20 04:08 09/12/20 04:08 - Additional Planning My Orders: My Active Orders 09/12/20 21:00 Docusate Sodium 250Mg Capsule [Colace 250Mg Capsule] 250 - 500 mg PO DAILY Senna [Senokot] 8.6 - 17.2 mg PO DAILY Subjective - Subjective Patient Reports: Other (Patient was more awake and alert today. He complained of pain at the surgical site on the left leg. He rated his pain 9 out of 10. He denied any other complaints.) Objective Vital Signs: Vital Signs - 24 hr 09/11/20 09/12/20 09/12/20 20:10 00:25 06:20 Temperature 36.4 C L Heart Rate 85 Heart Rate [ 80 Brachial] Heart Rate [ 81 Radial] Respiratory 16 18 Rate Blood Pressure 110/85 H 130/73 [Right Brachial artery] O2 Saturation 94 09/12/20 09/12/20 09/12/20 11:00 14:00 16:00 Temperature 37.1 C 36.8 C Heart Rate 90 Heart Rate [ 98 94 Brachial] Heart Rate [ Radial] Respiratory 16 18 18 Rate Blood Pressure 124/92 H 107/66 [Right Brachial artery] O2 Saturation 98 95 Oxygen O2 Source Nasal cannula I&O (Last 24 Hrs): Intake and Output Totals x24h 09/10/20 09/11/20 09/12/20 23:59 23:59 23:59 Intake Total 2500 1000 1140 Output Total 20 451 15 Balance 2480 549 1125 General: Alert, Oriented x3, Moderate distress HEENT: PERRLA, EOMI Neck: Supple, No JVD Neuro: Alert, Non Focal, Oriented Times 3 Cardiovascular: Regular rate Respiratory: Chest non-tender, No respiratory distress, Breath sounds nml Abdomen: Normal bowel sounds, Soft, No tenderness Rectal: Other (Status post left foot amputation. Left leg wrapped in bandage. VERA drainage removed.) Extremities: No clubbing, No cyanosis Skin: No rashes - Results Results: Laboratory Results WBC 6.8 x10^3/uL (4.8-10.8) 09/12/20 04:08 RBC 3.41 10^6/uL (4.70-6.10) L 09/12/20 04:08 Hgb 11.3 g/dL (14.0-18.0) L 09/12/20 04:08 Hct 35.4 % (42.0-52.0) L 09/12/20 04:08 MCV 103.8 fL (80.0-94.0) H 09/12/20 04:08 MCH 33.1 pg (27.0-31.0) H 09/12/20 04:08 MCHC 31.9 g/dL (32.0-36.0) L 09/12/20 04:08 RDW 14.6 % (12.0-15.0) 09/12/20 04:08 Plt Count 170 10^3/uL (130-450) 09/12/20 04:08 MPV 12.1 fL (7.4-11.4) H 09/12/20 04:08 Neut # (Auto) 5.0 10^3/uL (1.5-6.6) 09/12/20 04:08 Lymph # (Auto) 1.0 10^3/uL (1.5-3.5) L 09/12/20 04:08 [place] # (Auto) 0.6 10^3/uL (0.0-1.0) 09/12/20 04:08 Eos # (Auto) 0.2 10^3/uL (0.0-0.7) 09/12/20 04:08 Baso # (Auto) 0.0 10^3/uL (0.0-0.1) 09/12/20 04:08 Absolute Nucleated RBC 0.00 x10^3/uL 09/12/20 04:08 Nucleated RBC % 0.0 /100WBC 09/12/20 04:08 Platelet Estimate DECREASED (<130,000) (NORMAL) 09/09/20 04:39 PT 15.1 secs (9.9-12.6) H 09/12/20 04:08 INR 1.4 (0.8-1.2) H 09/12/20 04:08 Sodium 137 mmol/L (135-145) 09/12/20 04:08 Potassium 4.1 mmol/L (3.5-5.0) 09/12/20 04:08 Chloride 102 mmol/L (101-111) 09/12/20 04:08 Carbon Dioxide 25 mmol/L (21-32) 09/12/20 04:08 Anion Gap 10.0 (6-13) 09/12/20 04:08 BUN 17 mg/dL (6-20) 09/12/20 04:08 Creatinine 0.6 mg/dL (0.6-1.2) 09/12/20 04:08 Estimated GFR (MDRD) 135 (>89) 09/12/20 04:08 Glucose 100 mg/dL (70-100) 09/12/20 04:08 Calcium 8.8 mg/dL (8.5-10.3) 09/12/20 04:08 Total Bilirubin 2.4 mg/dL (0.2-1.0) H 09/01/20 16:30 AST 52 IU/L (10-42) H 09/01/20 16:30 ALT 55 IU/L (10-60) 09/01/20 16:30 Alkaline Phosphatase 100 IU/L (42-121) 09/01/20 16:30 Troponin I High Sens 26.7 ng/L (2.3-19.7) H* 09/10/20 17:28 Total Protein 7.5 g/dL (6.7-8.2) 09/01/20 16:30 Albumin 3.5 g/dL (3.2-5.5) 09/01/20 16:30 Globulin 4.0 g/dL (2.1-4.2) 09/01/20 16:30 Albumin/Globulin Ratio 0.9 (1.0-2.2) L 09/01/20 16:30 Lipase 35 U/L (22-51) 09/01/20 16:30 Vitamin B12 387 pg/mL (180-914) 09/09/20 04:39 Folate 9.86 ng/mL (5.90 - >24.8) 09/09/20 04:39 Urine Color YELLOW 09/01/20 23:32 Urine Clarity CLEAR (CLEAR) 09/01/20 23:32 Urine pH 5.5 PH (5.0-7.5) 09/01/20 23:32 Ur Specific [place] 1.025 (1.002-1.030) 09/01/20 23:32 Urine Protein NEGATIVE mg/dL (NEGATIVE) 09/01/20 23:32 Urine Glucose (UA) NEGATIVE mg/dL (NEGATIVE) 09/01/20 23:32 Urine Ketones NEGATIVE mg/dL (NEGATIVE) 09/01/20 23:32 Urine Occult Blood TRACE-LYSE (NEGATIVE) 09/01/20 23:32 Urine Nitrite NEGATIVE (NEGATIVE) 09/01/20 23:32 Urine Bilirubin NEGATIVE (NEGATIVE) 09/01/20 23:32 Urine Urobilinogen 1 (NORMAL) E.U./dL (NORMAL) 09/01/20 23:32 Ur Leukocyte Esterase NEGATIVE (NEGATIVE) 09/01/20 23:32 Ur Microscopic Review NOT INDICATED 09/01/20 23:32 Urine Culture Comments NOT INDICATED 09/01/20 23:32 Nasal Adenovirus (PCR) NOT DETECTED 09/12/20 11:30 Nasal B. parapertussis DNA (PCR) NOT DETECTED 09/12/20 11:30 Nasal Coronavir 229E PCR NOT DETECTED 09/12/20 11:30 Nasal Coronavir HKU1 PCR NOT DETECTED 09/12/20 11:30 Nasal Coronavir NL63 PCR NOT DETECTED 09/12/20 11:30 Nasal Coronavir OC43 PCR NOT DETECTED 09/12/20 11:30 Nasal Enterovir/Rhinovir PCR NOT DETECTED 09/12/20 11:30 Nasal Influenza B PCR NOT DETECTED 09/12/20 11:30 Nasal Influenza A PCR NOT DETECTED 09/12/20 11:30 Nasal Parainfluen 1 PCR NOT DETECTED 09/12/20 11:30 Nasal Parainfluen 2 PCR NOT DETECTED 09/12/20 11:30 Nasal Parainfluen 3 PCR NOT DETECTED 09/12/20 11:30 Nasal Parainfluen 4 PCR NOT DETECTED 09/12/20 11:30 Nasal RSV (PCR) NOT DETECTED 09/12/20 11:30 Nasal B.pertussis DNA PCR NOT DETECTED 09/12/20 11:30 Nasal C.pneumoniae (PCR) NOT DETECTED 09/12/20 11:30 Guerrero Human Metapneumo PCR NOT DETECTED 01/31/21 11:30 Nasal M.pneumoniae (PCR) NOT DETECTED 09/12/20 11:30 Nasal SARS-CoV-2 (PCR) NOT DETECTED 09/12/20 11:30 Coronavirus (PCR) NEGATIVE 09/09/20 16:30 Ref Lab Test Result REPORT 09/08/20 15:30 Blood Type A POSITIVE 09/08/20 08:40 Blood Type Recheck A POSITIVE 09/08/20 05:00 Antibody Screen NEGATIVE 09/08/20 08:40 ABX Reporting Has patient been on IV antibiotics over the past 48 hours?: Yes
[2020-09-12] MEDS: ALPRAZolam 0.25 MG TABLET PO SCH (21:22)
[2020-09-12] MEDS: ATORVASTATIN 40 MG TABLET PO SCH (21:33)
[2020-09-12] MEDS: DOCUSATE SODIUM 250 MG CAPSULE PO SCH (21:47)
[2020-09-12] MEDS: SENNA 8.6 MG TABLET PO SCH (21:47)
[2020-09-13] MEDS: SODIUM CHLORIDE FLUSH 0.9% 10 ML SYRINGE IVP SCH ×2 (02:07→09:15)
[2020-09-13] MEDS: ceFAZolin 1 GM in SODIUM CHLORIDE 0.9% MINIBAG 100 ML IV SCH ×2 (02:07→10:58)
[2020-09-13] MEDS: oxyCODONE 5 MG TABLET PO PRN (02:26)
[2020-09-13] MEDS: SODIUM CHLORIDE FLUSH 0.9% 10 ML SYRINGE IVP PRN (02:44)
[2020-09-13] MEDS: ACETAMINOPHEN 500 MG TABLET PO SCH (06:14)
--- NOTE | 2020-09-13 07:16 | DISCHARGE SUMMARY ---
"Discharge Summary Admit Date: 09/03/20 Discharge Date: 09/13/20 Discharging Provider: Zahra Annhomike Code Status: Attempt Resuscitation Condition at Discharge: Stable Discharge Disposition: 03 SNF DC/Xfer Discharge Facility Name: [facility] - DIAGNOSES Admission Diagnoses: Fibular fracture Pressure ulcer of ankle Pressure ulcer of left hip, stage I Atrial fibrillation History of stroke with current residual effects History of seizure disorder Discharge Diagnoses with Status of Each Condition: Fibular fracture: Subacute healing Pressure ulcer of ankle: Subacute healing Pressure ulcer of left hip, stage I: Chronic Atrial fibrillation: Chronic History of stroke with current residual effects History of seizure disorder - HPI History of Present Illness: Per HPI: This is a 64-year-old male with a history of A. fib on Coumadin, history of stroke residual sided weakness, history of left ankle amputation, history of seizure disorder who presents to the emergency department 2 days ago due to leg pain. He was seen in the emergency department about 10 days prior after a fall at home and was found to the left fibula fracture and a patellar fracture. He was discharged home with orthopedic follow-up. Since he has been home at that time, he has not been moving around and his has had difficulty taking care of him. He has developed a left heel wound and left hip wound consistent with pressure ulcers. He currently has no complaints except for pain of the left lower extremity at the knee. He denies any chest pain or dyspnea. He has been in the emergency room for 48 hours now due to difficulty with placement. He has been seen by physical therapy and the patient was not participating. Given he is on able to go home, medicine has been consulted for admission. - CONSULTS | PROCEDURES Consultations: General surgery: Dr. Tulio Juarez. Procedures: . Wound debridement pressure ulceration 2. Stump revision skin and soft tissue 3. Possible left distal fibula resection 4. Possible left distal tibia resection 5. Wound washout and possible closure Pre-Op Diagnosis: Lt stump ulcer; Hx of traumatic LLE injury; LLE tib-fib fx Procedure Performed: 1. Wound debridement pressure ulceration 2. Stump revision skin and soft tissue, Left leg 3. Left distal fibula resection 4. Left distal tibia resection 5. Wound washout 6. Complex skin and soft tissue closure 7. Drain placement 8. Splint placement Post Op Diagnosis: Same; successful closure of left stump defect - Procedure Note Primary Surgeon: Ann Secondary Surgeon: Nancie Anesthesia Provider: Roberto Anesthesia Technique: Local, MAC, Regional block Pathology: 1. Bone for pathology and culture, LLE 2. Skin and soft tissue for pathology and culture, LLE Estimated Blood Loss (mL): 20 Drain/Tube Type: Contreras drain Indications: See EMR Findings: 1. Ulceration with no cherie purulence or infectious process 2. Low-tension primary closure after tib-fib partial resection 3. History of Symes rotation; bony prominence with significant burden for which resection allowed primary closure 4. We will plan knee immobilizing splint postoperatively Complications: NONE - HOSPITAL COURSE Hospital Course: Patient was seen by PT OT throughout the duration of his hospital stay. It was recommended that he be placed an SNF for rehab upon discharge. He was seen by Dr. Tulio Juarez with general surgery for wound debridement of the pressure ulceration, stump revision of the skin and soft tissue, left distal fibular resection, Left distal tibia resection, wound washout, complex skin and soft tissue closure, drain placement and splint placement. He was assisted in surgery by Dr. Heladio Canada. Cherie purulence or infectious process was noted during the procedure. This was washed out. A Knee immobilizing splint is planned postoperatively. The patient was maintained on cefazolin during the course of his hospital stay. For a 5-day course. This was discontinued upon discharge. The patient had a day of low blood pressure with his systolics dropping to 86. This readily improved with IV hydration. At time of admission the patient's INR was 2.1 he is on Coumadin for atrial fibrillation. This was held for the surgical procedure and resumed on the day of discharge. Patient's pain was managed with oxycodone 5 mg p.o. every 4 hours as needed. He was discharged with 5 days worth of oxycodone. His home medications were resumed with no changes at the time of discharge. He had an echocardiogram done on 09/04/2020 which showed mild concentric left ventricular hypertrophy. Mild to moderate right ventricular enlargement. The right ventricular systolic function was normal. RVSP at rest is 40 mmHg. There was no significant valvular dysfunction. The rest of his hospital stay was fairly unremarkable. His ejection fraction was 60%. The rest of his hospital stay was fairly unremarkable. He was discharged to [facility]. - ALLERGIES Allergies/Adverse Reactions: Allergies Allergy/AdvReac Type Severity Reaction Status Date / Time No Known Drug Allergies Allergy Verified 09/01/20 11:47 - MEDICATIONS Home Medications: Ambulatory Orders Medication Instructions Recorded Confirmed Aspirin 81 mg PO DAILY 06/04/18 09/04/20 Potassium Chloride 40 meq PO DAILY 06/04/18 09/03/20 Umeclidinium Brm/Vilanterol Tr 1 puffs INH DAILY 06/04/18 09/03/20 [Anoro Ellipta 62.5-25 Mcg INH] Warfarin [Coumadin] 5 mg PO DAILY 06/04/18 09/03/20 ALPRAZolam [Alprazolam] 0.5 mg PO QPM 06/05/18 09/03/20 Albuterol 2.5 mg INH Q6H PRN 06/05/18 09/04/20 Finasteride 5 mg PO DAILY 06/05/18 09/03/20 Hydrocodone/Acetaminophen 1 tab PO TID PRN 06/05/18 09/03/20 [Hydrocodone-Acetamin 5-325 mg] Tamsulosin [Flomax] 0.4 mg PO 1730 06/05/18 09/03/20 Atorvastatin Calcium 40 mg PO DAILY PM 02/09/20 09/03/20 Furosemide 60 mg ORAL DAILY 02/09/20 09/03/20 Ipratropium/Albuterol [Duoneb] 3 ml INH Q6H PRN 02/09/20 09/04/20 Levetiracetam [Keppra] 750 mg PO BID 02/09/20 09/03/20 Metoprolol Succinate 50 mg PO BID 02/09/20 09/03/20 lisinopriL [Zestril] 5 mg ORAL DAILY 02/09/20 09/03/20 oxyCODONE [Roxicodone] 5 mg PO Q4-6H #30 tablet 09/13/20 - PHYSICAL EXAM AT DISCHARGE General Appearance: positive: Alert, Moderate distress Eyes Bilateral: positive: PERRL, EOMI ENT: positive: No signs of dehydration Neck: positive: No JVD, Trachea midline Respiratory: positive: Chest non-tender, No respiratory distress, Breath sounds nml Cardiovascular: positive: Irregularly irregular Abdomen: positive: Non-tender, No organomegaly, Nml bowel sounds, No distention Back: positive: Nml inspection Extremities: positive: No pedal edema, Other (Status post left foot amputation. Left leg wrapped in bandage. VERA drainage removed.) Neurologic/Psychiatric: positive: Oriented x3, Mood/affect nml - LABS Result Diagrams: 09/12/20 04:08 09/12/20 04:08 - FOLLOW UP Follow Up: Follow-up with primary care physician within 7 to 10 days. - TIME SPENT Time Spent in Discharge (Minutes): 35"
--- NOTE | 2020-09-13 07:17 | Discharge Plan ---
"Discharge Plan for SNF / [facility] - Discharge Plan And Transition Orders Problem Reviewed?: Yes Disposition: 03 SNF DC/Xfer Condition: Stable Allergies and Adverse Reactions: Allergies Allergy/AdvReac Type Severity Reaction Status Date / Time No Known Drug Allergies Allergy Verified 09/01/20 11:47 - SNF / [facility] Transition Orders Admit to (Facility): [facility] Discharge Diagnosis: Fibula fracture Pressure Ulcer of left ankle Pressure ulcer of left hip, stage I Atrial fibrillation History of seizure Medicare Certification Statement: I certify that Post Hospital intermediate care is medically necessary on a continuing basis for any of the conditions for which she/he is receiving care during hospitalization. Notify PCP of admission and forward orders to primary provider for signature. Weight on admission and: Daily Other Notification Orders: Call PCP immediately if patient develops dyspnea, chest pain/tightness or edema. House Bowel Program: Yes Additional Bowel Program Orders: If no BM after 2 days, nurse may give M.O.M. 30ml PO PRN and/or ducolax Supp 1 CA and/or ROCHELLE 250mg P.O., and/or senna 1-2 tabs PO. On day 3 nurse may give repeat above order until residents constipation is resolved. Treatments & Other Orders: Wound dressing changes at surgical site as needed Medication Orders: PLEASE REFER TO THE DISCHARGE MEDICATION LIST. - Medications New Prescriptions: oxyCODONE [Roxicodone] 5 mg PO Q4-6H #30 tablet - Diet Type: Regular Texture: Regular May have monthly special meal: Yes - Therapies | Activity Therapy: Evaluation | Treat if indicated: PT, OT Rehabilitation Potential: Maximize functional status, Return to independent living Activity: Per PT recommendations Weight Bearing: Per PT Assistance Devices: Wheelchair, Crutches Follow Up: With orthopedics in 7 to 10 days. With primary care physician as needed"
[2020-09-13] MEDS ORDERED: WARFARIN 5 MG TABLET PO STA (07:20)
[2020-09-13] MEDS: MULTIVITAMIN W/MINERALS TABLET PO SCH (07:54)
[2020-09-13] MEDS: SACCHAROMYCES BOULARDII 250 MG CAPSULE PO SCH (07:54)
[2020-09-13 08:00] VITALS: BP 117/74
[2020-09-13] MEDS: ASPIRIN CHEW 81 MG TABLET PO SCH (09:12)
[2020-09-13] MEDS: FUROSEMIDE 40 MG TABLET PO SCH (09:12)
[2020-09-13] MEDS: DOCUSATE SODIUM 250 MG CAPSULE PO SCH (09:13)
[2020-09-13] MEDS: AZITHROMYCIN 250 MG TABLET PO SCH (09:13)
[2020-09-13] MEDS: METOPROLOL SUCCINATE 25 MG TABLET PO SCH (09:13)
[2020-09-13] MEDS: POTASSIUM CHLORIDE 20 MEQ TABLET PO SCH (09:13)
[2020-09-13] MEDS: FINASTERIDE 5 MG TABLET PO SCH (09:13)
[2020-09-13] MEDS: SENNA 8.6 MG TABLET PO SCH (09:15)
[2020-09-13] MEDS: levETIRAcetam 250 MG TABLET PO SCH (09:15)
[2020-09-13] MEDS: polyethylene glycoL 3350 17 GM PACKET PO SCH (09:15)
[2020-09-13] MEDS: ENOXAPARIN 40 MG/0.4 ML SYRINGE SUBQ SCH (09:52)
--- NOTE | 2020-09-20 12:43 | PROCEDURE REPORT ---
Physician: Tulio Juarez MD DATE OF PROCEDURE: 09/08/2020. Please refer to previously dictated operative report on 09/08/2020. 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 He is admitted with acute fracture of left lower extremity, nondisplaced, for which he has already been consulted on Orthopedics. He was noted for an ulcerated wound at the time of his workup and general surgical consultation was obtained to discuss wound management. Given the location of the wound, which was essentially a chronic pressure ulceration from his prior amputation, we collaborated with Orthopedics towards stump revision which was discussed at length with Dr. Canada. Most importantly, given the size of the wound, its location and the lack of any associated redundant surrounding tissue to afford primary closure, the plan was also to perform partial resection of either or both the tibia and fibula to accommodate skin flaps in an attempt at primary closure following appropriate debridement. DESCRIPTION OF PROCEDURE: Please note, the patient was discussed and explained intended procedure at length and informed consent obtained. The patient was taken to the operating room and placed supine on the operating table. The patient was already induced for monitored anesthesia care. Left lower extremity Local block was performed by anesthesia for planned left lower extremity intervention. A timeout was called and agreed to by all in the room with the consent noted and documented. Please note that Dr. Canada and myself were present for the entirety of this operative intervention and Dr. Canada as co-surgical interventionalist was crucial for attending to the orthopaedic intervention as it relates to resection of both the fibula and tibia towards allowing for skin closure over this complex, high risk wound. Again, with the left lower extremity stump prepped and draped in the usual sterile fashion, we proceeded to locally instill and proceeded to locally anesthetize, the patient having already undergone local block by anesthesia. We locally debrided this area without any complication and sent that tissue for both pathology, as well as wound culture. This wound was approximately 5-6cm in length and 3-4 cm in height. The patient was dosed with antibiotics during this operative intervention within an hour of incision. We appreciated neither purulent drainage nor active infectious process. However, the tissue was necrotic and thus we proceeded to send specimen for culture and sensitivity. There was extensive scar tissue from the patient's historic fat pad from the heel stump that was used to reconstruct his Syme's amputation. This was debulked surgically and tissue was sent for permanent pathology as well. It was clear that after we excised the area of ulceration, absent any appreciable osteomyelitis or other infectious process, the best to afford primary closure would be a partial resection of the fibula, which we proceeded with Dr. Canada's assistance and under his expert direction. This was a tangential distal long bone resection and was sent for both permanent pathology, as well as microbiology for culture and sensitivity. This afforded opportunity to create skin flaps; however, there was still tension on the wound. Thus, we proceeded to perform partial resection of the distal tibia, lateral aspect, which afforded further opportunity. Please note that the bone was cleared from surrounding skin and soft tissue, and this exposure was performed with great care was taken towards preserving the skin and soft tissue without interfering/compromising its associated blood supply. Ultimately, a vertical incision was made overlying the fibula approximately 6-7 cm and a cross incision along the stump was made laterally overlying the fat pad from the patient's heel from historic Syme's amputation reconstruction 8-10cm. We debulked the pad of additional tissue and thereafter felt that we could appropriately close wound primarily with low tension at this time after the bone had been resected and the flaps had been mobilized sharply, bluntly and with Bovie electrocautery. Thus, we proceeded to aggressively irrigate the wound with 2 liters of sterile saline pulse lavage. Then, thereafter, we proceeded to re-approximate deep dermal layer with 3-0 Vicryl after having placed a Contreras drain 15 Fr. within the wound. We thereafter closed the distal aspect of the revised stump with vertical mattress sutures, which was approximately 8 - 10 cm horizontally and thereafter closed the vertical incision with skin han. The wound was dressed with Xeroform and Dr. Canada returned to place a splint after having dressed the stump with padding and gauze. All counts of sponges, needles, and instruments were correct at the conclusion of the operative case. I was present for the entirety of this operative intervention. Again, Dr. Heladio Canada was present for the bony resection and to assess the closure and again was crucial and central to providing the necessary expertise towards revising this amputation with the hopes that the patient would be able to resume using prosthetic. At this time, we were able to relax contracted knee significantly and plan was to proceed with a knee immobilizer to assist. The splint would be reused going forward to protect the distal revised stump as well. TD: 09/13/2020 13:22 NICCI
== END 2020-09-13 12:30 | DRG 570 ==
LOC: EDUNIT# → ED 11:33 → MS2 09-03 14:34 → OBSVTOIN 09-04 08:41
PROVIDERS: ADMIT Internal Medicine; ATTEND Internal Medicine
PROC: 0QBK0ZZ Excision of Left Fibula, Open Approach (ICD-10-PCS; 2020-09-08)
PROC: 0QBH0ZZ Excision of Left Tibia, Open Approach (ICD-10-PCS; 2020-09-08)
PROC: 0JDP0ZZ Extraction of Left Lower Leg Subcutaneous Tissue and Fascia, Open Approach (ICD-10-PCS; 2020-09-08)
PROC: 0JQP0ZZ Repair Left Lower Leg Subcutaneous Tissue and Fascia, Open Approach (ICD-10-PCS; 2020-09-08)
PROC: 0JBP0ZZ Excision of Left Lower Leg Subcutaneous Tissue and Fascia, Open Approach (ICD-10-PCS; principal; 2020-09-08 08:45)
DX: L89.523 Pressure ulcer of left ankle, stage 3 (principal); J18.9 Pneumonia, unspecified organism; S82.202A Unspecified fracture of shaft of left tibia, initial encounter for closed fracture; S82.002A Unspecified fracture of left patella, initial encounter for closed fracture; S82.035A Nondisplaced transverse fracture of left patella, initial encounter for closed fracture; I69.354 Hemiplegia and hemiparesis following cerebral infarction affecting left non-dominant side; L89.221 Pressure ulcer of left hip, stage 1; S82.832A Other fracture of upper and lower end of left fibula, initial encounter for closed fracture; W06.XXXA Fall from bed, initial encounter; Y92.009 Unspecified place in unspecified non-institutional (private) residence as the place of occurrence of the external cause; I48.91 Unspecified atrial fibrillation; Z79.01 Long term (current) use of anticoagulants; G40.909 Epilepsy, unspecified, not intractable, without status epilepticus; G47.30 Sleep apnea, unspecified; Z89.432 Acquired absence of left foot; E86.0 Dehydration; F03.90 Unspecified dementia, unspecified severity, without behavioral disturbance, psychotic disturbance, mood disturbance, and anxiety; J43.9 Emphysema, unspecified; I11.0 Hypertensive heart disease with heart failure; I50.9 Heart failure, unspecified; Z79.899 Other long term (current) drug therapy; Z87.891 Personal history of nicotine dependence; Z20.822 Contact with and (suspected) exposure to COVID-19; I95.9 Hypotension, unspecified; E86.9 Volume depletion, unspecified; N40.0 Benign prostatic hyperplasia without lower urinary tract symptoms; I87.8 Other specified disorders of veins
CPT/HCPCS: 36415; 71045; 73560; 80048; 80053; 81003; 81599; 82607; 82746; 83690; 84484; 85025; 85610; 86850; 86900; 86901; 87631; 93005; 93306; 94640; 96361; 96374; 97110; 97163; 97164; 97166; 97530; 99284; 99285; A9270; G0378; J1170; J1650; J7120; P9017; U0004; 0202U; 81001; 87070; 87075; 87076; 87086; 87147; 87186; 87205; 88304; 88305; 88311